=== PATIENT | female | born 1970 | race Two or more races ===

== ENCOUNTER 2017-12-08 17:33 | Emergency (ER) | payer OTHER | END 2017-12-08 20:29 | disposition home or self-care (01) | LOC: ER 20:29 | DX: M79.671 Pain in right foot (principal); E11.9 Type 2 diabetes mellitus without complications; K21.9 Gastro-esophageal reflux disease without esophagitis; Z98.51 Tubal ligation status; Z98.890 Other specified postprocedural states | CPT/HCPCS: 73630; 99284 ==

== ENCOUNTER 2018-02-16 17:30 | Emergency (ER) | payer OTHER ==
[2018-02-16 18:10] LABS: BILIRUBIN,URINE NEGATIVE (NEG); CLARITY,URINE CLEAR; COLOR,URINE YELLOW; GLUCOSE,URINE NEGATIVE (NEG); NITRITE,URINE NEGATIVE (NEG); PH,URINE 5.5; PROTEIN,URINE NEGATIVE (NEG-TRACE); UROBILINOGEN,URINE 0.2 mg/dL (0.2 mg/dL)
[2018-02-16 18:11] LABS: URINE HCG POC HCG NEGATIVE (Negative)
[2018-02-16] MEDS: IV NORMAL SALINE 1000ML BAG 1,000 ML IV (18:27)
[2018-02-16 18:33] LABS: BACTERIA,URINE 0 /HPF (0-FEW); RBC,URINE 0 /HPF (0-2); SQUAMOUS EPITHELIAL CELL,UR MANY /LPF; WBC,URINE 0 /HPF (0-4)
[2018-02-16 19:21] LABS: ADD MAN DIFF? NO
[2018-02-16 19:23] LABS: BASO % 0 % (0-3); EOS # 0.1 x10^3/uL (0.0-0.7); EOS % 1 % (0-3); HEMATOCRIT 30.7 % (36.0-47.0); HEMOGLOBIN 10.4 g/dL (12.0-15.5); LYMPH # 2.1 x10^3/uL (1.0-4.8); LYMPH % 24 % (24-48); MEAN CORPUSCULAR HEMOGLOBIN 29 pg (25-35); MEAN CORPUSCULAR HGB CONC 34 g/dL (31-37); MEAN CORPUSCULAR VOLUME 86 fL (79-100); MONO # 0.4 x10^3/uL (0.0-1.1); MONO % 5 % (0-9); NEUT # 6.3 x10^3uL (1.8-7.7); NEUT % 71 % (31-73); PLATELET COUNT 333 x10^3/uL (140-400); RED BLOOD COUNT 3.57 x10^6/uL (3.50-5.40); RED CELL DISTRIBUTION WIDTH 17.6 % (11.5-14.5); WHITE BLOOD COUNT 8.9 x10^3/uL (4.0-11.0)
[2018-02-16 19:38] LABS: ANION GAP 9 (6-14); BLOOD UREA NITROGEN 10 mg/dL (7-20); BUN/CREATININE RATIO 14 (6-20); CALCIUM 8.7 mg/dL (8.5-10.1); CARBON DIOXIDE 24 mmol/L (21-32); CHLORIDE 109 mmol/L (98-107); CREATININE 0.7 mg/dL (0.6-1.0); GFR 89.3; GLUCOSE 76 mg/dL (70-99); POTASSIUM 3.3 mmol/L (3.5-5.1); SODIUM 142 mmol/L (136-145)
[2018-02-16 19:45] LABS: ALBUMIN 3.8 g/dL (3.4-5.0); ALBUMIN/GLOBULIN RATIO 1.1 (1.0-1.7); ALK PHOS 47 U/L (46-116); ALT (SGPT) 35 U/L (14-59); AST (SGOT) 18 U/L (15-37); LIPASE 219 U/L (73-393); TOTAL BILIRUBIN 0.5 mg/dL (0.2-1.0); TOTAL PROTEIN 7.3 g/dL (6.4-8.2)
[2018-02-16] MEDS: IRON POLYSACCHARIDE COMPLEX 150 MG CAPSULE PO (22:10)
[2018-02-18 14:33] LABS: CHLAMYDIA PROBE Negative (Negative); GC PROBE Negative (Negative)
== END 2018-02-16 22:17 | disposition home or self-care (01) ==
LOC: ER 17:30
DX: N93.8 Other specified abnormal uterine and vaginal bleeding (principal); E11.9 Type 2 diabetes mellitus without complications; K21.9 Gastro-esophageal reflux disease without esophagitis; I10 Essential (primary) hypertension
CPT/HCPCS: 36415; 76856; 80053; 81001; 81025; 83690; 85025; 87491; 87591; 99285-25; J7030; Q0111

== ENCOUNTER 2018-07-24 18:04 | Inpatient (IN) | payer OTHER ==
[~2018-07-24] VITALS: Ht 170.2 cm; Wt 109.3 kg
[~2018-07-24 18:04] MED LIST: ASPI81TA50 PO; ATOR40TA59 PO; DICL50TA4 PO; FERR-36 PO; FLUC150T PO; INSU100I13 SQ; INSU100I17 SQ; LEVO750T31 PO; MEDR2.5T28 PO; METF10007 PO; METR500T PO; PANT40TA3 PO
[2018-07-24 19:18] LABS: BASO # 0.1 x10^3/uL (0.0-0.2); BASO % 1 % (0-3); EOS # 0.1 x10^3/uL (0.0-0.7); EOS % 1 % (0-3); HEMATOCRIT 27.5 % (36.0-47.0); HEMOGLOBIN 8.6 g/dL (12.0-15.5); LYMPH # 2.4 x10^3/uL (1.0-4.8); LYMPH % 26 % (24-48); MEAN CORPUSCULAR HEMOGLOBIN 23 pg (25-35); MEAN CORPUSCULAR HGB CONC 31 g/dL (31-37); MEAN CORPUSCULAR VOLUME 73 fL (79-100); MONO # 0.7 x10^3/uL (0.0-1.1); MONO % 7 % (0-9); NEUT # 6.2 x10^3uL (1.8-7.7); NEUT % 66 % (31-73); PLATELET COUNT 384 x10^3/uL (140-400); RED BLOOD COUNT 3.78 x10^6/uL (3.50-5.40); RED CELL DISTRIBUTION WIDTH 20.3 % (11.5-14.5); WHITE BLOOD COUNT 9.4 x10^3/uL (4.0-11.0)
[2018-07-24 19:28] LABS: PROTHROMBIN TIME PATIENT 13.1 SEC (11.7-14.0)
[2018-07-24] MEDS ORDERED: ASPIRIN CHEWABLE 81 MG TABLET. PO ONE (19:30)
--- NOTE | 2018-07-24 19:40 | PHYS DOC ---
Past Medical History Past Medical History: Diabetes-Type II, GERD, Hypertension Past Surgical History: Alcohol Use: None Drug Use: None Adult General Chief Complaint Chief Complaint: CHEST PAIN HPI HPI Patient is a 48 year old female presents with chest pain. She said she's had it now for about a month on and off but over the last 7 days it has been every single day it is worse when she tries to move around even just a little bit when she takes a shower and when she walks up the stairs she feels a pressure heaviness on the chest Center radiates both shoulders currently no pain while at rest in addition she has a headache of note she had a stress test in 2013 at this facility did show a possible mild defect but she was treated medically at that time with negative troponins. She says history obtained with the daughter who is interpreting for her at the patient's request she says that she did go to and talk to her doctor about this about a month ago but thought everything was okay. Review of Systems Review of Systems Constitutional: Denies fever or chills [] Eyes: Denies change in visual acuity, redness, or eye pain [] Musculoskeletal: Denies back pain or joint pain [] Integument: Denies rash or skin lesions [] Neurologic: Denies focal weakness or sensory changes [] Endocrine: Denies polyuria or polydipsia [] All other systems were reviewed and found to be within normal limits, except as documented in this note. Current Medications Current Medications Current Medications Medications (Trade) Dose Ordered Sig/Asha Start Time Stop Time Status Last Admin Dose Admin Aspirin (Children'S Aspirin) 324 mg 1X ONCE 07/24/18 19:30 07/24/18 19:31 DC 07/24/18 19:25 324 MG Nitroglycerin (Nitrostat) 0.4 mg PRN Q5MIN PRN 07/24/18 21:00 07/25/18 20:59 Allergies Allergies Allergies Coded Allergies Type Severity Reaction Last Updated Verified No Known Drug Allergies 03/02/14 No Physical Exam Physical Exam Constitutional: Well developed, well nourished, no acute distress, non-toxic appearance. [] HENT: Normocephalic, atraumatic, bilateral external ears normal, oropharynx moist, no oral exudates, nose normal. [] Eyes: PERRLA, EOMI, conjunctiva normal, no discharge. [] Neck: Normal range of motion, no tenderness, supple, no stridor. [] Cardiovascular:Heart rate regular rhythm, no murmur [] Lungs & Thorax: Bilateral breath sounds clear to auscultation [] Abdomen: Bowel sounds normal, soft, no tenderness, no masses, no pulsatile masses. [] Skin: Warm, dry, no erythema, no rash. [] Back: No tenderness, no CVA tenderness. [] Extremities: No tenderness, no cyanosis, no clubbing, ROM intact, no edema. [] Neurologic: Alert and oriented X 3, normal motor function, normal sensory function, no focal deficits noted. [] Psychologic: Affect normal, judgement normal, mood normal. [] Current Patient Data Vital Signs Vital Signs Date Time Temp Pulse Resp B/P (MAP) Pulse Ox O2 Delivery O2 Flow Rate FiO2 07/24/18 18:13 97.9 101 22 139/74 (95) 96 Room Air 97.9 Lab Values Laboratory Tests Test 07/24/18 19:00 07/24/18 20:10 White Blood Count 9.4 x10^3/uL (4.0-11.0) Red Blood Count 3.78 x10^6/uL (3.50-5.40) Hemoglobin 8.6 g/dL (12.0-15.5) L Hematocrit 27.5 % (36.0-47.0) L Mean Corpuscular Volume 73 fL (79-100) L Mean Corpuscular Hemoglobin 23 pg (25-35) L Mean Corpuscular Hemoglobin Concent 31 g/dL (31-37) Red Cell Distribution Width 20.3 % (11.5-14.5) H Platelet Count 384 x10^3/uL (140-400) Neutrophils (%) (Auto) 66 % (31-73) Lymphocytes (%) (Auto) 26 % (24-48) Monocytes (%) (Auto) 7 % (0-9) Eosinophils (%) (Auto) 1 % (0-3) Basophils (%) (Auto) 1 % (0-3) Neutrophils # (Auto) 6.2 x10^3uL (1.8-7.7) Lymphocytes # (Auto) 2.4 x10^3/uL (1.0-4.8) Monocytes # (Auto) 0.7 x10^3/uL (0.0-1.1) Eosinophils # (Auto) 0.1 x10^3/uL (0.0-0.7) Basophils # (Auto) 0.1 x10^3/uL (0.0-0.2) Platelet Estimate Adequate (ADEQUATE) Polychromasia Mod Hypochromasia Mod Anisocytosis Mod Microcytosis Slight Tear Drop Cells Few Ovalocytes Mod Prothrombin Time 13.1 SEC (11.7-14.0) Prothrombin Time INR 1.0 (0.8-1.1) D-Dimer (Deanne) < 0.27 ug/mlFEU Maternal Serum HCG Beta Subunit 1 mIU/mL (0-5) Sodium Level 142 mmol/L (136-145) Potassium Level 3.9 mmol/L (3.5-5.1) Chloride Level 105 mmol/L (98-107) Carbon Dioxide Level 25 mmol/L (21-32) Anion Gap 12 (6-14) Blood Urea Nitrogen 14 mg/dL (7-20) Creatinine 0.9 mg/dL (0.6-1.0) Estimated GFR (Cockcroft-Gault) 66.5 BUN/Creatinine Ratio 16 (6-20) Glucose Level 97 mg/dL (70-99) Calcium Level 9.1 mg/dL (8.5-10.1) Total Bilirubin 0.3 mg/dL (0.2-1.0) Aspartate Amino Transferase (AST) 13 U/L (15-37) L Alanine Aminotransferase (ALT) 29 U/L (14-59) Alkaline Phosphatase 59 U/L (46-116) Troponin I Quantitative < 0.017 ng/mL (0.000-0.055) RU-Oqu-I-Type Natriuretic Peptide 12 pg/mL (0-124) Total Protein 7.6 g/dL (6.4-8.2) Albumin 3.6 g/dL (3.4-5.0) Albumin/Globulin Ratio 0.9 (1.0-1.7) L Laboratory Tests 07/24/18 19:00 Laboratory Tests 07/24/18 20:10 EKG EKG []EKG shows a normal sinus tachycardia rate of 103 possible nonspecific changes in V3 and V5 but no acute STEMI was identified this is interpreted by me the time of encounter. Radiology/Procedures Radiology/Procedures [] Impressions: Chest x-ray interpreted by me showed normal lungs normal bones no pneumothorax no pneumonia seen. Course & Med Decision Making Course & Med Decision Making Pertinent Labs and Imaging studies reviewed. (See chart for details) []Heart score is a h 2 e 1 a 1 r 1 t 0 = 5 patient will be admitted overnight for observation and serial rule out. D-dimer was done to evaluate for pulmonary embolism given the mild tachycardia aspirin was given ADMIT TO [facility]. PT WELL APPEARING WHILE IN TH ER. Dragon Disclaimer Dragon Disclaimer This electronic medical record was generated, in whole or in part, using a voice recognition dictation system. Departure Departure Impression: Primary Impression: Chest pain Disposition: ADMITTED INPATIENT Admitting Physician: Other Condition: STABLE Referrals: UNKNOWN PCP NAME (PCP) BALJIT JACKSON MD Jul 24, 2018 19:40
[2018-07-24 19:52] LABS: PLT ESTIMATE ADEQUATE (ADEQUATE)
[2018-07-24 19:53] LABS: ANISOCYTOSIS MOD; HYPOCHROMIA MOD; MICROCYTOSIS SLIGHT; OVALOCYTES MOD; POLYCHROMASIA MOD; TEAR DROP CELLS FEW
[2018-07-24 20:27] LABS: CALCIUM 9.1 mg/dL (8.5-10.1); CREATININE 0.9 mg/dL (0.6-1.0); GFR 66.5; POTASSIUM 3.9 mmol/L (3.5-5.1)
[2018-07-24 20:34] LABS: ALBUMIN 3.6 g/dL (3.4-5.0); ALBUMIN/GLOBULIN RATIO 0.9 (1.0-1.7); TOTAL BILIRUBIN 0.3 mg/dL (0.2-1.0); TOTAL PROTEIN 7.6 g/dL (6.4-8.2)
[2018-07-24] MEDS ORDERED: NITROGLYCERIN SUBLINGUAL 0.4 MG BOTTLE OF 25. SL PRN (21:00)
[2018-07-24 22:45] VITALS: BP 125/90
[2018-07-24] MEDS: ATORVASTATIN CALCIUM 40 MG TABLET. PO SCH (23:00)
[2018-07-24] MEDS: INSULIN GLARGINE 300 UNITS/3 ML INSULN.PEN. SQ SCH (23:08)
[2018-07-25 03:16] VITALS: BP 141/73
[2018-07-25 06:16] LABS: CHOLESTEROL/HDL RATIO 4.3
[2018-07-25 07:00] VITALS: BP 136/87
[2018-07-25] MEDS: INSULIN LISPRO 300 UNITS/3 ML INSULN.PEN. SQ SCH ×3 (08:00→17:34)
--- NOTE | 2018-07-25 08:27 | RAD ---
Single view chest 07/24/2018 CLINICAL INDICATION: Chest pain. COMPARISON: Chest 01/03/2018 FINDINGS: Cardiac and mediastinal silhouettes are unremarkable. No pleural effusion, pneumothorax or focal consolidation. IMPRESSION: No acute cardiopulmonary abnormality. Electronically signed by: Tawanda Corbin MD (07/25/2018 8:24 AM) [facility]
--- NOTE | 2018-07-25 11:05 | PDOC2 ---
CARDIOLOGY CONSULT NOTE CHEIF COMPLAINT: Chest pain HPI: Patient is a pleasant 48 y/o female with PMHx T2DM, HLD, that presents with exertional chest pain for 7 days duration. She is seen at the bedside with daughter who is helping with translation as Nigerien is not the patients primary language. She reports that she has had chest pain with activity for about the last month. She states that over the last week the pain has become much worse leading her to come to the hospital. She describes the pain as stabbing in nature, she states that it starts substernally and radiates to her neck and shoulders. She reports that the pain is worse with activity and relieved with rest. She states that the pain is associated with SOB but no diaphoresis, nausea, or vomiting. Workup in the emergency department revealed negative troponins and nonspecific EKG changes however not concerning for STEMI. Currently she reports that she is feeling better and without chest pain. She denies any fever, chills, or recent sick contacts. She reports headache. She states she has had chest pain like this in 2013 with a negative stress and echo at that time. PMHX: T2DM, Dyslipidemia SOCHX: Tobacco: Denies, ETOH: Denies CURRENT MEDS: Current Medications Medications (Trade) Dose Ordered Sig/Asha Start Time Stop Time Status Last Admin Dose Admin Aspirin (Children'S Aspirin) 324 mg 1X ONCE 07/24/18 19:30 07/24/18 19:31 DC 07/24/18 19:25 324 MG Atorvastatin Calcium (Lipitor) 40 mg QHS 07/24/18 23:00 Insulin Glargine (Lantus) 20 units QHS 07/24/18 23:00 07/24/18 23:08 20 UNITS Insulin Human Lispro (HumaLOG) 8 units TIDWMEALS 07/25/18 08:00 Metformin HCl (Glucophage) 1,000 mg BIDWMEALS 07/25/18 08:00 Nitroglycerin (Nitrostat) 0.4 mg PRN Q5MIN PRN 07/24/18 21:00 07/25/18 20:59 ALLERGIES: Allergies Coded Allergies Type Severity Reaction Last Updated Verified No Known Drug Allergies 03/02/14 No ROS: 14 point system was reviewed and is negative other then described in HPI and past medical and surgical history. PHYSICAL EXAM: Vital Signs: Vital Signs Date Time Temp Pulse Resp B/P (MAP) Pulse Ox O2 Delivery O2 Flow Rate FiO2 07/25/18 08:10 Room Air 07/25/18 07:00 97.7 105 18 136/87 (103) 98 97.7 Physical Exam: GEN.: No apparent distress. Alert and oriented. HEENT: Head is normocephalic, atraumatic NECK: Supple. LUNGS: Clear to auscultation. HEART: RRR, S1, S2 present. Peripheral pulses intact ABDOMEN: Soft, nontender. Positive bowel sounds. EXTREMITIES: Without any cyanosis or edema NEUROLOGIC: Normal speech, normal tone PSYCHIATRIC: Normal affect, normal mood. SKIN: No ulcerations DIAGNOSTIC TESTING: Lab Laboratory Tests Test 07/24/18 19:00 07/24/18 20:10 07/25/18 04:45 07/25/18 08:09 White Blood Count 9.4 x10^3/uL (4.0-11.0) Red Blood Count 3.78 x10^6/uL (3.50-5.40) Hemoglobin 8.6 g/dL (12.0-15.5) L Hematocrit 27.5 % (36.0-47.0) L Mean Corpuscular Volume 73 fL (79-100) L Mean Corpuscular Hemoglobin 23 pg (25-35) L Mean Corpuscular Hemoglobin Concent 31 g/dL (31-37) Red Cell Distribution Width 20.3 % (11.5-14.5) H Platelet Count 384 x10^3/uL (140-400) Neutrophils (%) (Auto) 66 % (31-73) Lymphocytes (%) (Auto) 26 % (24-48) Monocytes (%) (Auto) 7 % (0-9) Eosinophils (%) (Auto) 1 % (0-3) Basophils (%) (Auto) 1 % (0-3) Neutrophils # (Auto) 6.2 x10^3uL (1.8-7.7) Lymphocytes # (Auto) 2.4 x10^3/uL (1.0-4.8) Monocytes # (Auto) 0.7 x10^3/uL (0.0-1.1) Eosinophils # (Auto) 0.1 x10^3/uL (0.0-0.7) Basophils # (Auto) 0.1 x10^3/uL (0.0-0.2) Platelet Estimate Adequate (ADEQUATE) Polychromasia Mod Hypochromasia Mod Anisocytosis Mod Microcytosis Slight Tear Drop Cells Few Ovalocytes Mod Prothrombin Time 13.1 SEC (11.7-14.0) Prothromb Time International Ratio 1.0 (0.8-1.1) D-Dimer (Deanne) < 0.27 ug/mlFEU Maternal Serum HCG Beta Subunit 1 mIU/mL (0-5) Sodium Level 142 mmol/L (136-145) Potassium Level 3.9 mmol/L (3.5-5.1) Chloride Level 105 mmol/L (98-107) Carbon Dioxide Level 25 mmol/L (21-32) Anion Gap 12 (6-14) Blood Urea Nitrogen 14 mg/dL (7-20) Creatinine 0.9 mg/dL (0.6-1.0) Estimated GFR (Cockcroft-Gault) 66.5 BUN/Creatinine Ratio 16 (6-20) Glucose Level 97 mg/dL (70-99) Calcium Level 9.1 mg/dL (8.5-10.1) Total Bilirubin 0.3 mg/dL (0.2-1.0) Aspartate Amino Transf (AST/SGOT) 13 U/L (15-37) L Alkaline Phosphatase 59 U/L (46-116) Total Protein 7.6 g/dL (6.4-8.2) Albumin 3.6 g/dL (3.4-5.0) Albumin/Globulin Ratio 0.9 (1.0-1.7) L Cholesterol Level 130 mg/dL (0-200) LDL Cholesterol, Calculated 73 mg/dL (0-100) VLDL Cholesterol, Calculated 27 mg/dL (0-40) Non-HDL Cholesterol Calculated 100 mg/dL (0-129) Cholesterol/HDL Ratio 4.3 Glucose (Fingerstick) 184 mg/dL (70-99) H ASSESSMENT: #1. Typical Anginal Chest Pain #2. Microcytic Anemia - Hgb down to 8.6 from > 11 several months ago. #3. Type 2 Diabetes Mellitus PLAN: #1. Given typical anginal chest pain will discuss cardiac catheterization with patient #2. Echo #3. Start Metoprolol 25mg bid. Start ASA 81mg daily She has significant anemia - will ensure that has no obvious bleeding issues prior to plans for cath. RAMAN MOMIN MD Jul 25, 2018 11:05
[2018-07-25 11:07] VITALS: BP 138/82
[2018-07-25] MEDS ORDERED: ASPIRIN CHEWABLE 81 MG TABLET. PO ONE (11:45)
[2018-07-25] MEDS: metFORMIN 500 MG TABLET PO SCH ×2 (12:24→17:31)
[2018-07-25 14:49] VITALS: BP 125/70
[2018-07-25] MEDS ORDERED: DEXTROSE 50% 25 GM / 50ML DISP.SYRIN. IV PRN (16:30)
--- NOTE | 2018-07-25 17:52 | EKG ---
[facility] [address] [place] [address] Test Date: 2018-07-24 Test Time: 18:16:24 Pat Name: DIANE LEWIS Department: Room: 208 1 Gender: Female Hospital Medical Biller: : [id number] Requested By: BALJIT JACKSON Order Number: [id number] Reading MD: Terrance Diaz MD Measurements Intervals [place] Rate: 103 P: 34 CT: 132 QRS: 9 QRSD: 76 T: -4 QT: 334 QTc: 439 Interpretive Statements SINUS TACHYCARDIA Electronically Signed On 07-26-2018 8:39:00 PHYSICAL THERAPIST ASSISTANT by Terrance Diaz MD
[2018-07-25 18:47] VITALS: BP 138/82
--- NOTE | 2018-07-25 19:25 | PDOC1 ---
History and Physical History of Present Illness History of Present Illness HPI from ED Patient is a 48 year old female presents with chest pain. She said she's had it now for about a month on and off but over the last 7 days it has been every single day it is worse when she tries to move around even just a little bit when she takes a shower and when she walks up the stairs she feels a pressure heaviness on the chest Center radiates both shoulders currently no pain while at rest in addition she has a headache of note she had a stress test in 2013 at this facility did show a possible mild defect but she was treated medically at that time with negative troponins. She says history obtained with the daughter who is interpreting for her at the patient's request she says that she did go to and talk to her doctor about this about a month ago but thought everything was okay. On my exam AAO x3 NAD pheasant No c/o CP at thi time Daughter is at bedside interpreting in [place]ib[place] No c/o sob at present Past Medical History Cardiovascular: HTN Endocrine: Diabetes Past Surgical History Past Surgical History: Family History Family History: Hypertension Social History ALCOHOL: none Drugs: None Current Problem List Problem List Problems Medical Problems: (1) Chest pain Status: Acute Current Medications Current Medications Current Medications Medications (Trade) Dose Ordered Sig/Asha Start Time Stop Time Status Last Admin Dose Admin Aspirin (Children'S Aspirin) 81 mg [id number] 07/26/18 08:00 Atorvastatin Calcium (Lipitor) 40 mg QHS 07/24/18 23:00 Dextrose (Dextrose 50%-Water Syringe) 12.5 gm PRN Q15MIN PRN 07/25/18 16:30 Insulin Glargine (Lantus) 20 units QHS 07/24/18 23:00 07/24/18 23:08 20 UNITS Insulin Human Lispro (HumaLOG) 8 units TIDWMEALS 07/25/18 08:00 07/25/18 17:34 8 UNITS Metformin HCl (Glucophage) 1,000 mg BIDWMEALS 07/25/18 08:00 07/25/18 17:31 1,000 MG Metoprolol Tartrate (Lopressor) 25 mg BID 07/25/18 21:00 Nitroglycerin (Nitrostat) 0.4 mg PRN Q5MIN PRN 07/24/18 21:00 07/25/18 20:59 Allergies Allergies Allergies Coded Allergies Type Severity Reaction Last Updated Verified No Known Drug Allergies 03/02/14 No ROS Review of System CONSTITUTIONAL: No fever or chills EYES: No recent changes SKIN: No rash or itching CARDIOVASCULAR: No chest pain, syncope, palpitations, or edema RESPIRATORY: No SOB or cough GASTROINTESTINAL: No nausea, vomiting or abdominal pain NEUROLOGICAL: No headaches or weakness ENDOCRINE: No cold or heat intolerance GENITOURINARY: No urgency or frequency of urination MUSCULOSKELETAL: No back pain or joint pain LYMPHATICS: No enlarged lymph nodes PSYCHIATRIC: No anxiety or depression Physical Exam Physical Exam GEN.: No apparent distress. Alert and oriented. HEENT: Head is normocephalic, atraumatic NECK: Supple. LUNGS: Clear to auscultation. HEART: RRR, S1, S2 present. Peripheral pulses intact ABDOMEN: Soft, nontender. Positive bowel sounds. EXTREMITIES: Without any cyanosis. NEUROLOGIC: Normal speech, normal tone PSYCHIATRIC: Normal affect, normal mood. SKIN: No ulcerations Vitals Vitals Vital Signs Date Time Temp Pulse Resp B/P (MAP) Pulse Ox O2 Delivery O2 Flow Rate FiO2 07/25/18 18:47 98.6 98 18 138/82 (100) 96 Room Air 98.6 Labs Labs Laboratory Tests Test 07/24/18 19:00 07/24/18 20:10 07/25/18 01:30 07/25/18 04:45 White Blood Count 9.4 x10^3/uL (4.0-11.0) Red Blood Count 3.78 x10^6/uL (3.50-5.40) Hemoglobin 8.6 g/dL (12.0-15.5) Hematocrit 27.5 % (36.0-47.0) Mean Corpuscular Volume 73 fL (79-100) Mean Corpuscular Hemoglobin 23 pg (25-35) Mean Corpuscular Hemoglobin Concent 31 g/dL (31-37) Red Cell Distribution Width 20.3 % (11.5-14.5) Platelet Count 384 x10^3/uL (140-400) Neutrophils (%) (Auto) 66 % (31-73) Lymphocytes (%) (Auto) 26 % (24-48) Monocytes (%) (Auto) 7 % (0-9) Eosinophils (%) (Auto) 1 % (0-3) Basophils (%) (Auto) 1 % (0-3) Neutrophils # (Auto) 6.2 x10^3uL (1.8-7.7) Lymphocytes # (Auto) 2.4 x10^3/uL (1.0-4.8) Monocytes # (Auto) 0.7 x10^3/uL (0.0-1.1) Eosinophils # (Auto) 0.1 x10^3/uL (0.0-0.7) Basophils # (Auto) 0.1 x10^3/uL (0.0-0.2) Platelet Estimate Adequate (ADEQUATE) Polychromasia Mod Hypochromasia Mod Anisocytosis Mod Microcytosis Slight Tear Drop Cells Few Ovalocytes Mod Prothrombin Time 13.1 SEC (11.7-14.0) Prothromb Time International Ratio 1.0 (0.8-1.1) D-Dimer (Deanne) < 0.27 ug/mlFEU Maternal Serum HCG Beta Subunit 1 mIU/mL (0-5) Sodium Level 142 mmol/L (136-145) Potassium Level 3.9 mmol/L (3.5-5.1) Chloride Level 105 mmol/L (98-107) Carbon Dioxide Level 25 mmol/L (21-32) Anion Gap 12 (6-14) Blood Urea Nitrogen 14 mg/dL (7-20) Creatinine 0.9 mg/dL (0.6-1.0) Estimated GFR (Cockcroft-Gault) 66.5 BUN/Creatinine Ratio 16 (6-20) Glucose Level 97 mg/dL (70-99) Calcium Level 9.1 mg/dL (8.5-10.1) Total Bilirubin 0.3 mg/dL (0.2-1.0) Aspartate Amino Transf (AST/SGOT) 13 U/L (15-37) Alanine Aminotransferase (ALT/SGPT) 29 U/L (14-59) Alkaline Phosphatase 59 U/L (46-116) Troponin I Quantitative < 0.017 ng/mL (0.000-0.055) < 0.017 ng/mL (0.000-0.055) KU-Zuy-B-Type Natriuretic Peptide 12 pg/mL (0-124) Total Protein 7.6 g/dL (6.4-8.2) Albumin 3.6 g/dL (3.4-5.0) Albumin/Globulin Ratio 0.9 (1.0-1.7) Triglycerides Level 136 mg/dL (0-150) Cholesterol Level 130 mg/dL (0-200) LDL Cholesterol, Calculated 73 mg/dL (0-100) VLDL Cholesterol, Calculated 27 mg/dL (0-40) Non-HDL Cholesterol Calculated 100 mg/dL (0-129) HDL Cholesterol 30 mg/dL (40-60) Cholesterol/HDL Ratio 4.3 Test 07/25/18 05:00 07/25/18 08:09 07/25/18 11:57 07/25/18 12:10 Troponin I Quantitative < 0.017 ng/mL (0.000-0.055) < 0.017 ng/mL (0.000-0.055) Glucose (Fingerstick) 184 mg/dL (70-99) 135 mg/dL (70-99) Test 07/25/18 17:21 Glucose (Fingerstick) 123 mg/dL (70-99) Laboratory Tests Test 07/24/18 20:10 07/25/18 01:30 07/25/18 04:45 07/25/18 05:00 Maternal Serum HCG Beta Subunit 1 mIU/mL (0-5) Sodium Level 142 mmol/L (136-145) Potassium Level 3.9 mmol/L (3.5-5.1) Chloride Level 105 mmol/L (98-107) Carbon Dioxide Level 25 mmol/L (21-32) Anion Gap 12 (6-14) Blood Urea Nitrogen 14 mg/dL (7-20) Creatinine 0.9 mg/dL (0.6-1.0) Estimated GFR (Cockcroft-Gault) 66.5 BUN/Creatinine Ratio 16 (6-20) Glucose Level 97 mg/dL (70-99) Calcium Level 9.1 mg/dL (8.5-10.1) Total Bilirubin 0.3 mg/dL (0.2-1.0) Aspartate Amino Transf (AST/SGOT) 13 U/L (15-37) Alanine Aminotransferase (ALT/SGPT) 29 U/L (14-59) Alkaline Phosphatase 59 U/L (46-116) Troponin I Quantitative < 0.017 ng/mL (0.000-0.055) < 0.017 ng/mL (0.000-0.055) < 0.017 ng/mL (0.000-0.055) ZZ-Eyk-Y-Type Natriuretic Peptide 12 pg/mL (0-124) Total Protein 7.6 g/dL (6.4-8.2) Albumin 3.6 g/dL (3.4-5.0) Albumin/Globulin Ratio 0.9 (1.0-1.7) Triglycerides Level 136 mg/dL (0-150) Cholesterol Level 130 mg/dL (0-200) LDL Cholesterol, Calculated 73 mg/dL (0-100) VLDL Cholesterol, Calculated 27 mg/dL (0-40) Non-HDL Cholesterol Calculated 100 mg/dL (0-129) HDL Cholesterol 30 mg/dL (40-60) Cholesterol/HDL Ratio 4.3 Test 07/25/18 08:09 07/25/18 11:57 07/25/18 12:10 07/25/18 17:21 Glucose (Fingerstick) 184 mg/dL (70-99) 135 mg/dL (70-99) 123 mg/dL (70-99) Troponin I Quantitative < 0.017 ng/mL (0.000-0.055) VTE Prophylaxis Ordered VTE Prophylaxis Devices: No VTE Pharmacological Prophylaxi: Contraindicated Assessment/Plan Assessment/Plan Cards c/s Lopressor statin cath in am MAURICE León MD Jul 25, 2018 19:25
[2018-07-25] MEDS: ATORVASTATIN CALCIUM 40 MG TABLET. PO SCH (20:41)
[2018-07-25] MEDS: INSULIN GLARGINE 300 UNITS/3 ML INSULN.PEN. SQ SCH (20:45)
[2018-07-25] MEDS ORDERED: METOPROLOL TART IMMED RELEASE 25 MG TABLET. PO SCH (21:00)
[2018-07-25 22:38] VITALS: BP 130/70
[2018-07-26] VITALS (8 sets, daily range): BP systolic 125–147; BP diastolic 62–80
[2018-07-26] MEDS: metFORMIN 500 MG TABLET PO SCH (08:00)
[2018-07-26] MEDS: INSULIN LISPRO 300 UNITS/3 ML INSULN.PEN. SQ SCH (08:00)
[2018-07-26] MEDS ORDERED: ASPIRIN CHEWABLE 81 MG TABLET. PO SCH (08:00)
--- NOTE | 2018-07-26 08:37 | RAD ---
EXAM: Pelvic sonogram. HISTORY: Uterine bleeding. TECHNIQUE: Transabdominal and transvaginal sonographic imaging of the pelvis performed. COMPARISON: 12/24/2015, 01/03/2018 and 02/16/2018. FINDINGS: The uterus is enlarged and diffusely heterogeneous, measuring 15.6 x 8.1 x 6.9 cm. The endometrial stripe measures 9.6 mm in thickness. The ovaries are not visualized due to body habitus and bowel gas. There is no pelvic free fluid. IMPRESSION: 1. Heterogeneously enlarged uterus without a discrete mass such as a fibroid. This is slightly decreased compared to the most recent comparison study, likely due to differences in measurement technique. 2. Endometrial stripe within normal thickness for a premenopausal female. 3. Obscured ovaries. Electronically signed by: Arlette Genao MD (07/26/2018 8:33 AM) [id number]
[2018-07-26] MEDS ORDERED: IOHEXOL 300 MG/ML 100ML VIAL. ONE (09:33)
[2018-07-26] MEDS ORDERED: LIDOCAINE 1% PF 2 ML VIAL. ONE (09:33)
[2018-07-26] MEDS ORDERED: HEPARIN for IV BOLUS 10,000 UNIT/10 ML VIAL. ONE (09:43)
[2018-07-26] MEDS ORDERED: NITROGLYCERIN 200 MCG/2 ML SYRINGE FOR CATH/VASC LAB. ONE (09:43)
[2018-07-26] MEDS ORDERED: fentaNYL PF VIAL 100 MCG/2 ML VIAL ONE (09:43)
[2018-07-26] MEDS ORDERED: MIDAZOLAM HCL/PF 2 MG/2 ML VIAL. ONE (09:43)
[2018-07-26] MEDS ORDERED: VERAPAMIL 5 MG/2 ML VIAL. ONE (09:43)
[2018-07-26] MEDS ORDERED: LIDOCAINE 1% PF 2 ML VIAL. INJ ONE (10:15)
[2018-07-26] MEDS ORDERED: IV NORMAL SALINE 500ML BAG 500 ML IV ONE (10:15)
[2018-07-26] MEDS ORDERED: fentaNYL PF VIAL 100 MCG/2 ML VIAL IV ONE (10:15)
[2018-07-26] MEDS ORDERED: IOHEXOL 300 MG/ML 100ML VIAL. IART ONE (10:15)
[2018-07-26] MEDS ORDERED: MIDAZOLAM HCL/PF 2 MG/2 ML VIAL. IV ONE (10:15)
[2018-07-26] MEDS ORDERED: NITROGLYCERIN 200 MCG/2 ML SYRINGE FOR CATH/VASC LAB. IART ONE (10:15)
[2018-07-26] MEDS ORDERED: CONTRAST GIVEN. MC PRN (10:15)
[2018-07-26] MEDS ORDERED: VERAPAMIL 5 MG/2 ML VIAL. IART ONE (10:15)
[2018-07-26] MEDS ORDERED: HEPARIN for IV BOLUS 10,000 UNIT/10 ML VIAL. IART ONE (10:15)
--- NOTE | 2018-07-26 10:35 | CARD ---
MR#: [id number] Date of Study: 07/26/2018 Ordering Physician: RAMAN DIAZ, Referring Physician: MAURICE CLEMENTS Tech: Myrtle Darling RTR APPROVED REPORT Technologist: Myrtle Darling RTR Nurse: Abigail Hester RN Procedure(s) performed: Moderate Sedation time: 20 MINUTES LHC, Coronary angiography, Left ventriculography HISTORY The patient is a 48 year-old female with a history of : hypertension, dyslipidemia. INDICATION The indication(s) include : positive stress test, unstable angina . PROCEDURE NARRATIVE INFORMED CONSENT: After explaining the risks and benefits of the procedure and alternatives, informed consent was obtained. The patient was brought electively to the cardiac catheterization lab. A timeout was performed confi rming the patient's name, date of , procedure, and site of procedure. All necessary personnel w ere wearing the appropriate protective equipment and radiation monitor devices. (See nursing notes for medications administered). ACCESS: The right wrist was sterilely prepped and draped in the usual fashion. The right wrist was infiltrat ed with 1 mL of 2% lidocaine for subcutaneous anesthesia. A 6 Cambodian Terumo glide sheath was inserte d into the right radial artery without difficulty. CORONARY ANGIOGRAPHY: Right and left coronary angiography was performed using a 6Fr TIG 4.0 catheter. Left ventricular en d diastolic pressure was obtained with a pigtail catheter and pullback was performed after left ventr iculography. All catheter exchanges and advancements were performed over a guidewire. CLOSURE: At case completion the right radial sheath was removed and a Terumo radial band was applied with 13 m l of air. COMPLICATIONS: The patient tolerated the procedure well and there were no immediate complications. FINDINGS: HEMODYNAMICS: LVEDP 10 mm Hg No gradient on LV to aortic pullback. AO: 140/80 LEFT VENTRICULOGRAM: EF >70% Anterobasal: Normal. Anterolateral: Normal Apical: Normal Diaphragmatic: Normal Posterobasal: Normal CORONARY ANGIOGRAPHY: LM is a large caliber vessel with normal angiographic appearance. LAD is a large caliber vessel with normal angiographic appearance. Ramus is a moderate caliber vessel with normal angiographic apeparance. LCx is a moderate caliber non-dominant vessel with normal angiographic appearance. OM1 is a moderate caliber vessel with normal angiographic appearance. RCA is a large caliber dominant vessel with normal angiographic appearance. RPDA is a small caliber vessel with normal angiographic appearance. Conclusion 1. Normal left sided filling pressures. 2. Hyperdynamic LV function. EF > 70% 3. Normal angiographic appearance of the coronary arteries. Recommendations Aggressive Medical Therapy Signed by : Raman Diaz, Electronically Approved : 07/26/2018 10:33:47
--- NOTE | 2018-07-26 13:39 | PDOC ---
PROGRESS NOTES Chief Complaint Chief Complaint Chest Pain Uterine Bleeding History of Present Illness History of Present Illness Pt was seen before undergoing cardiac catherization (which was negative and no stent needed) and she had now new complaints. A pelvic US performed showed symmetrical enlargement and an endometrial stripe of 9 mm. CXR showed no cardiopulmonary abnormalities. She will be getting a echo done today. Vitals Vitals Vital Signs Date Time Temp Pulse Resp B/P (MAP) Pulse Ox O2 Delivery O2 Flow Rate FiO2 07/26/18 11:10 98.3 91 16 142/76 (98) 97 Room Air 98.3 07/26/18 10:16 2.0 Physical Exam Physical Exam Neurologically Sedated General: Other (Pt was neurologically sedated) Heart: Regular rate Lungs: Clear, Other (no crackles or wheezes) Abdomen: Normal bowel sounds, Other (tenderness) Extremities: No clubbing, No cyanosis Skin: No rashes, No significant lesion Labs LABS Laboratory Tests Test 07/25/18 17:21 07/25/18 20:42 07/26/18 07:30 07/26/18 11:33 Glucose (Fingerstick) 123 mg/dL (70-99) 122 mg/dL (70-99) 142 mg/dL (70-99) 119 mg/dL (70-99) Review of Systems Review of Systems GENERAL: No unexpected wt loss, fever/chills HEENT: No visual changes, no hearing changes PULM: No sob, cough Assessment and Plan Assessmemt and Plan ASSESSMENT: Chest Pain Uterine Bleeding PLAN: Awaiting subspecialty input Await results from echocardiogram Home meds Consult PT/OT Recheck labs in am if not DC today VTE Prophylaxis Possible discharge today Comment Review of Relevant I have reviewed the following items marta (where applicable) has been applied. Labs Laboratory Tests Test 07/24/18 19:00 07/24/18 20:10 07/25/18 01:30 07/25/18 04:45 White Blood Count 9.4 x10^3/uL (4.0-11.0) Red Blood Count 3.78 x10^6/uL (3.50-5.40) Hemoglobin 8.6 g/dL (12.0-15.5) Hematocrit 27.5 % (36.0-47.0) Mean Corpuscular Volume 73 fL (79-100) Mean Corpuscular Hemoglobin 23 pg (25-35) Mean Corpuscular Hemoglobin Concent 31 g/dL (31-37) Red Cell Distribution Width 20.3 % (11.5-14.5) Platelet Count 384 x10^3/uL (140-400) Neutrophils (%) (Auto) 66 % (31-73) Lymphocytes (%) (Auto) 26 % (24-48) Monocytes (%) (Auto) 7 % (0-9) Eosinophils (%) (Auto) 1 % (0-3) Basophils (%) (Auto) 1 % (0-3) Neutrophils # (Auto) 6.2 x10^3uL (1.8-7.7) Lymphocytes # (Auto) 2.4 x10^3/uL (1.0-4.8) Monocytes # (Auto) 0.7 x10^3/uL (0.0-1.1) Eosinophils # (Auto) 0.1 x10^3/uL (0.0-0.7) Basophils # (Auto) 0.1 x10^3/uL (0.0-0.2) Platelet Estimate Adequate (ADEQUATE) Polychromasia Mod Hypochromasia Mod Anisocytosis Mod Microcytosis Slight Tear Drop Cells Few Ovalocytes Mod Prothrombin Time 13.1 SEC (11.7-14.0) Prothromb Time International Ratio 1.0 (0.8-1.1) D-Dimer (Deanne) < 0.27 ug/mlFEU Maternal Serum HCG Beta Subunit 1 mIU/mL (0-5) Sodium Level 142 mmol/L (136-145) Potassium Level 3.9 mmol/L (3.5-5.1) Chloride Level 105 mmol/L (98-107) Carbon Dioxide Level 25 mmol/L (21-32) Anion Gap 12 (6-14) Blood Urea Nitrogen 14 mg/dL (7-20) Creatinine 0.9 mg/dL (0.6-1.0) Estimated GFR (Cockcroft-Gault) 66.5 BUN/Creatinine Ratio 16 (6-20) Glucose Level 97 mg/dL (70-99) Calcium Level 9.1 mg/dL (8.5-10.1) Total Bilirubin 0.3 mg/dL (0.2-1.0) Aspartate Amino Transf (AST/SGOT) 13 U/L (15-37) Alanine Aminotransferase (ALT/SGPT) 29 U/L (14-59) Alkaline Phosphatase 59 U/L (46-116) Troponin I Quantitative < 0.017 ng/mL (0.000-0.055) < 0.017 ng/mL (0.000-0.055) MZ-Fed-M-Type Natriuretic Peptide 12 pg/mL (0-124) Total Protein 7.6 g/dL (6.4-8.2) Albumin 3.6 g/dL (3.4-5.0) Albumin/Globulin Ratio 0.9 (1.0-1.7) Triglycerides Level 136 mg/dL (0-150) Cholesterol Level 130 mg/dL (0-200) LDL Cholesterol, Calculated 73 mg/dL (0-100) VLDL Cholesterol, Calculated 27 mg/dL (0-40) Non-HDL Cholesterol Calculated 100 mg/dL (0-129) HDL Cholesterol 30 mg/dL (40-60) Cholesterol/HDL Ratio 4.3 Test 07/25/18 05:00 07/25/18 08:09 07/25/18 11:57 07/25/18 12:10 Troponin I Quantitative < 0.017 ng/mL (0.000-0.055) < 0.017 ng/mL (0.000-0.055) Glucose (Fingerstick) 184 mg/dL (70-99) 135 mg/dL (70-99) Test 07/25/18 17:21 07/25/18 20:42 07/26/18 07:30 07/26/18 11:33 Glucose (Fingerstick) 123 mg/dL (70-99) 122 mg/dL (70-99) 142 mg/dL (70-99) 119 mg/dL (70-99) Laboratory Tests Test 07/25/18 17:21 07/25/18 20:42 07/26/18 07:30 07/26/18 11:33 Glucose (Fingerstick) 123 mg/dL (70-99) 122 mg/dL (70-99) 142 mg/dL (70-99) 119 mg/dL (70-99) Medications Current Medications Aspirin (Children'S Aspirin) 324 mg 1X ONCE PO Last administered on at 19:25; Start 07/24/18 at 19:30; Stop 07/24/18 at 19:31; Status DC Nitroglycerin (Nitrostat) 0.4 mg PRN Q5MIN PRN SL CHEST PAIN; Start 07/24/18 at 21:00; Stop 07/25/18 at 20:59; Status DC Atorvastatin Calcium (Lipitor) 40 mg QHS PO Last administered on 07/25/18at 20: 41; Start 07/24/18 at 23:00 Insulin Glargine (Lantus) 20 units QHS SQ Last administered on 07/25/18at 20:45 ; Start 07/24/18 at 23:00 Insulin Human Lispro (HumaLOG) 8 units TIDWMEALS SQ Last administered on at 17:34; Start 07/25/18 at 08:00 Metformin HCl (Glucophage) 1,000 mg BIDWMEALS PO Last administered on at 17:31; Start 07/25/18 at 08:00; Stop 07/26/18 at 10:06; Status DC Aspirin (Children'S Aspirin) 81 mg 1X ONCE PO Last administered on 07/25/18at 12:25; Start 07/25/18 at 11:45; Stop 07/25/18 at 11:46; Status DC Aspirin (Children'S Aspirin) 81 mg DAILYWBKFT PO ; Start 07/26/18 at 08:00 Metoprolol Tartrate (Lopressor) 25 mg BID PO Last administered on 07/25/18at 20 :42; Start 07/25/18 at 21:00 Dextrose (Dextrose 50%-Water Syringe) 12.5 gm PRN Q15MIN PRN IV SEE COMMENTS; Start 07/25/18 at 16:30 Lidocaine HCl (Xylocaine-Mpf 1% 2ml Vial) 2 ml STK-MED ONCE .ROUTE ; Start at 09:33; Stop 07/26/18 at 09:34; Status DC Iohexol (Omnipaque 300 Mg/ml) 100 ml STK-MED ONCE .ROUTE ; Start 07/26/18 at 09 :33; Stop 07/26/18 at 09:34; Status DC Heparin Sodium/ Sodium Chloride 500 ml @ As Directed STK-MED ONCE .ROUTE ; Start 07/26/18 at 09:33; Stop 07/26/18 at 09:34; Status DC Fentanyl Citrate (Fentanyl 2ml Vial) 100 mcg STK-MED ONCE .ROUTE ; Start at 09:43; Stop 07/26/18 at 09:44; Status DC Midazolam HCl (Versed) 2 mg STK-MED ONCE .ROUTE ; Start 07/26/18 at 09:43; Stop 07/26/18 at 09:44; Status DC Heparin Sodium (Porcine) (Heparin Sodium) 10,000 unit STK-MED ONCE .ROUTE ; Start 07/26/18 at 09:43; Stop 07/26/18 at 09:44; Status DC Verapamil HCl (Verapamil) 5 mg STK-MED ONCE .ROUTE ; Start 07/26/18 at 09:43; Stop 07/26/18 at 09:44; Status DC Nitroglycerin (Nitroglycerin) 200 mcg STK-MED ONCE .ROUTE ; Start 07/26/18 at 09:43; Stop 07/26/18 at 09:44; Status DC Nitroglycerin (Nitroglycerin) 200 mcg 1X ONCE IART Last administered on at 10:14; Start 07/26/18 at 10:15; Stop 07/26/18 at 10:16; Status DC Verapamil HCl (Verapamil) 2.5 mg 1X ONCE IART Last administered on 07/26/18at 10:14; Start 07/26/18 at 10:15; Stop 07/26/18 at 10:16; Status DC Heparin Sodium (Porcine) (Heparin Sodium) 2,500 unit 1X ONCE IART Last administered on 07/26/18at 10:15; Start 07/26/18 at 10:15; Stop 07/26/18 at 10 :16; Status DC Heparin Sodium/ Sodium Chloride (HEPARIN for ARTERIAL LINE FLUSH) 1,000 unit 1X ONCE IART Last administered on 07/26/18at 10:14; Start 07/26/18 at 10:15; Stop 07/26/18 at 10:16; Status DC Midazolam HCl (Versed) 2 mg 1X ONCE IV Last administered on 07/26/18at 10:14; Start 07/26/18 at 10:15; Stop 07/26/18 at 10:16; Status DC Fentanyl Citrate (Fentanyl 2ml Vial) 100 mcg 1X ONCE IV Last administered on 07/26/18at 10:13; Start 07/26/18 at 10:15; Stop 07/26/18 at 10:16; Status DC Iohexol (Omnipaque 300 Mg/ml) 100 ml 1X ONCE IART Last administered on at 10:12; Start 07/26/18 at 10:15; Stop 07/26/18 at 10:16; Status DC Lidocaine HCl (Xylocaine-Mpf 1% 2ml Vial) 2 ml 1X ONCE INJ Last administered on 07/26/18at 10:14; Start 07/26/18 at 10:15; Stop 07/26/18 at 10:16; Status DC Info (CONTRAST GIVEN -- Rx MONITORING) 1 each PRN DAILY PRN MC SEE COMMENTS; Start 07/26/18 at 10:15; Stop 07/28/18 at 10:14 Metformin HCl (Glucophage) 1,000 mg BIDWMEALS PO ; Start 07/28/18 at 08:00 Sodium Chloride 500 ml @ 500 mls/hr 1X ONCE IV Last administered on at 10:08; Start 07/26/18 at 10:15; Stop 07/26/18 at 11:14; Status DC Active Scripts Active Reported Atorvastatin Calcium 40 Mg Tablet 40 Mg PO DAILY Lantus Solostar (Insulin Glargine,Hum.rec.anlog) 100 Unit/1 Ml Insuln.pen 20 Units SQ HS Novolog Flexpen (Insulin Aspart) 100 Unit/1 Ml Insuln.pen 8 Units SQ TIDWMEALS Metformin Hcl 1,000 Mg Tablet 1,000 Mg PO BID Vitals/I & O Vital Sign - Last 24 Hours 07/25/18 07/25/18 07/25/18 07/25/18 14:49 18:47 20:00 20:42 Temp 98.0 98.6 98.0 98.6 Pulse 98 98 98 Resp 18 18 B/P (MAP) 125/70 (88) 138/82 (100) 138/82 Pulse Ox 99 96 O2 Delivery Room Air Room Air Room Air 07/25/18 07/26/18 07/26/18 07/26/18 22:38 03:00 07:25 08:00 Temp 98.0 98.3 98.1 98.0 98.3 98.1 Pulse 99 102 86 Resp 20 16 16 B/P (MAP) 130/70 (90) 125/75 (92) 147/71 (96) Pulse Ox 96 97 95 O2 Delivery Room Air Room Air Room Air Room Air 07/26/18 07/26/18 07/26/18 07/26/18 10:13 10:14 10:16 11:10 Temp 98.3 98.3 Pulse 85 85 91 Resp 22 22 16 B/P (MAP) 142/76 (98) Pulse Ox 100 100 97 O2 Delivery Nasal Cannula Room Air O2 Flow Rate 2.0 2.0 Intake and Output 07/25/18 07/25/18 07/26/18 15:00 23:00 07:00 Intake Total 100 ml 500 ml 600 ml Output Total 250 ml Balance 100 ml 250 ml 600 ml TAMIKA ARCHULETA III DO Jul 26, 2018 13:39
--- NOTE | 2018-07-26 13:53 | DS ---
DATE OF DISCHARGE: 07/26/2018 ADMISSION DIAGNOSES: Chest pain and dysfunctional uterine bleeding. DISCHARGE DIAGNOSIS: Atypical chest pain. PROCEDURES: Cardiac catheterization, which was clean. HOSPITAL COURSE: The patient is a pleasant 48-year-old female who presented with chest pain. She also had some vaginal bleeding. She was admitted. We consulted Cardiology and [facility] [employer] [facility]. She was placed on hormonal manipulation with progesterone type products. She was also taken to the tutorial laboratory supervisor. I saw her in the tutorial laboratory supervisor this morning, she was doing well, the cath apparently is clean. She is doing better. We plan to discharge to home. DISPOSITION: Home. ACTIVITY: As tolerated. DIET: Low sodium. MEDICATIONS: Please see MRAD. TOTAL TIME ON DISCHARGE: 38 minutes. TAMIKA ARCHULETA DO DR: DELMAR/[place] JOB#: [id number] / [id number]
--- NOTE | 2018-07-26 14:29 | PDOC2 ---
CONSULT Date of Consult Date of Consult DATE: 07/26/18 TIME: 14:23 Reason for Consult Reason for Consult: h/o anemia secondary to menorrhagia Referring Physician Referring Physician: Dr. Diaz Identification/Chief Complaint Chief Complaint chest pain Source Source: Chart review, Patient History of Present Illness Reason for Visit: 48 y/o presented with chest pain. She had work up for acute MT. Cardiology wanting to start 81 mg ASA daily. Pt. with h/o menorrhagia and fibroids. Pelvic sono indicated fibroids still present. She stopped Provera medication since she is stopped bleeding 1 month ago. She has iron tabs at home and encouraged to continue iron tabs BID. Counseled on increased risk of bleeding with ASA, however benefits for cardiac health outweigh the risks. Past Medical History Cardiovascular: HTN Endocrine: Diabetes Past Surgical History Past Surgical History: Family History Family History: Hypertension Social History ALCOHOL: none Drugs: None Current Problem List Problem List Problems Medical Problems: (1) Chest pain Status: Acute Current Medications Current Medications Current Medications Aspirin (Children'S Aspirin) 324 mg 1X ONCE PO Last administered on at 19:25; Start 07/24/18 at 19:30; Stop 07/24/18 at 19:31; Status DC Nitroglycerin (Nitrostat) 0.4 mg PRN Q5MIN PRN SL CHEST PAIN; Start 07/24/18 at 21:00; Stop 07/25/18 at 20:59; Status DC Atorvastatin Calcium (Lipitor) 40 mg QHS PO Last administered on 07/25/18at 20: 41; Start 07/24/18 at 23:00 Insulin Glargine (Lantus) 20 units QHS SQ Last administered on 07/25/18at 20:45 ; Start 07/24/18 at 23:00 Insulin Human Lispro (HumaLOG) 8 units TIDWMEALS SQ Last administered on at 17:34; Start 07/25/18 at 08:00 Metformin HCl (Glucophage) 1,000 mg BIDWMEALS PO Last administered on at 17:31; Start 07/25/18 at 08:00; Stop 07/26/18 at 10:06; Status DC Aspirin (Children'S Aspirin) 81 mg 1X ONCE PO Last administered on 07/25/18at 12:25; Start 07/25/18 at 11:45; Stop 07/25/18 at 11:46; Status DC Aspirin (Children'S Aspirin) 81 mg DAILYWBKFT PO ; Start 07/26/18 at 08:00 Metoprolol Tartrate (Lopressor) 25 mg BID PO Last administered on 07/25/18at 20 :42; Start 07/25/18 at 21:00 Dextrose (Dextrose 50%-Water Syringe) 12.5 gm PRN Q15MIN PRN IV SEE COMMENTS; Start 07/25/18 at 16:30 Lidocaine HCl (Xylocaine-Mpf 1% 2ml Vial) 2 ml STK-MED ONCE .ROUTE ; Start at 09:33; Stop 07/26/18 at 09:34; Status DC Iohexol (Omnipaque 300 Mg/ml) 100 ml STK-MED ONCE .ROUTE ; Start 07/26/18 at 09 :33; Stop 07/26/18 at 09:34; Status DC Heparin Sodium/ Sodium Chloride 500 ml @ As Directed STK-MED ONCE .ROUTE ; Start 07/26/18 at 09:33; Stop 07/26/18 at 09:34; Status DC Fentanyl Citrate (Fentanyl 2ml Vial) 100 mcg STK-MED ONCE .ROUTE ; Start at 09:43; Stop 07/26/18 at 09:44; Status DC Midazolam HCl (Versed) 2 mg STK-MED ONCE .ROUTE ; Start 07/26/18 at 09:43; Stop 07/26/18 at 09:44; Status DC Heparin Sodium (Porcine) (Heparin Sodium) 10,000 unit STK-MED ONCE .ROUTE ; Start 07/26/18 at 09:43; Stop 07/26/18 at 09:44; Status DC Verapamil HCl (Verapamil) 5 mg STK-MED ONCE .ROUTE ; Start 07/26/18 at 09:43; Stop 07/26/18 at 09:44; Status DC Nitroglycerin (Nitroglycerin) 200 mcg STK-MED ONCE .ROUTE ; Start 07/26/18 at 09:43; Stop 07/26/18 at 09:44; Status DC Nitroglycerin (Nitroglycerin) 200 mcg 1X ONCE IART Last administered on at 10:14; Start 07/26/18 at 10:15; Stop 07/26/18 at 10:16; Status DC Verapamil HCl (Verapamil) 2.5 mg 1X ONCE IART Last administered on 07/26/18at 10:14; Start 07/26/18 at 10:15; Stop 07/26/18 at 10:16; Status DC Heparin Sodium (Porcine) (Heparin Sodium) 2,500 unit 1X ONCE IART Last administered on 07/26/18at 10:15; Start 07/26/18 at 10:15; Stop 07/26/18 at 10 :16; Status DC Heparin Sodium/ Sodium Chloride (HEPARIN for ARTERIAL LINE FLUSH) 1,000 unit 1X ONCE IART Last administered on 07/26/18at 10:14; Start 07/26/18 at 10:15; Stop 07/26/18 at 10:16; Status DC Midazolam HCl (Versed) 2 mg 1X ONCE IV Last administered on 07/26/18at 10:14; Start 07/26/18 at 10:15; Stop 07/26/18 at 10:16; Status DC Fentanyl Citrate (Fentanyl 2ml Vial) 100 mcg 1X ONCE IV Last administered on 07/26/18at 10:13; Start 07/26/18 at 10:15; Stop 07/26/18 at 10:16; Status DC Iohexol (Omnipaque 300 Mg/ml) 100 ml 1X ONCE IART Last administered on at 10:12; Start 07/26/18 at 10:15; Stop 07/26/18 at 10:16; Status DC Lidocaine HCl (Xylocaine-Mpf 1% 2ml Vial) 2 ml 1X ONCE INJ Last administered on 07/26/18at 10:14; Start 07/26/18 at 10:15; Stop 07/26/18 at 10:16; Status DC Info (CONTRAST GIVEN -- Rx MONITORING) 1 each PRN DAILY PRN MC SEE COMMENTS; Start 07/26/18 at 10:15; Stop 07/28/18 at 10:14 Metformin HCl (Glucophage) 1,000 mg BIDWMEALS PO ; Start 07/28/18 at 08:00 Sodium Chloride 500 ml @ 500 mls/hr 1X ONCE IV Last administered on at 10:08; Start 07/26/18 at 10:15; Stop 07/26/18 at 11:14; Status DC Active Scripts Active Reported Atorvastatin Calcium 40 Mg Tablet 40 Mg PO DAILY Lantus Solostar (Insulin Glargine,Hum.rec.anlog) 100 Unit/1 Ml Insuln.pen 20 Units SQ HS Novolog Flexpen (Insulin Aspart) 100 Unit/1 Ml Insuln.pen 8 Units SQ TIDWMEALS Metformin Hcl 1,000 Mg Tablet 1,000 Mg PO BID Allergies Allergies: Coded Allergies: No Known Drug Allergies (Unverified , 03/02/14) ROS General: YES: Fatigue; No: Chills, Night Sweats, Malaise, Appetite, Other PSYCHOLOGICAL ROS: YES: Anxiety; No: Behavioral Disorder, Concentration difficultie, Decreased libido, Depression, Disorientation, Hallucinations, Hostility, Irritablity, Memory difficulties, Mood Swings, Obsessive thoughts, Physical abuse, Sexual abuse, Sleep disturbances, Suicidal ideation, Other Eyes: No Blurry vision, No Decreased vision, No Double vision, No Dry eyes, No Excessive tearing, No Eye Pain, No Itchy Eyes, No Loss of vision, No Photophobia , No Scotomata, No Uses contacts, No Uses glasses, No Other HEENT: No: Heacaches, Visual Changes, Hearing change, Nasal congestion, Nasal discharge, Oral lesions, Sinus pain, Sore Throat, Epistaxis, Sneezing, Snoring, Tinnitus, Vertigo, Vocal changes, Other ALLERGY AND IMMUNOLOGY: No: Hives, Insect Bite Sensitivity, Itchy/Watery Eyes, Nasal Congestion, Post Nasal Drip, Seasonal Allergies, Other Hematological and Lymphatic: No: Bleeding Problems, Blood Clots, Blood Transfusions, Brusing, Night Sweats, Pallor, Swollen Lymph Nodes, Other ENDOCRINE: No: Breast Changes, Galactorrhea, Hair Pattern Changes, Hot Flashes , Malaise/lethargy, Mood Swings, Palpitations, Polydipsia/polyuria, Skin Changes , Temperature Intolerance, Unexpected Weight Changes, Other Breast: No New/Changing Breast Lumps, No Nipple changes, No Nipple discharge, No Other Respiratory: YES: SOB with excertion Cardiovascular: yes Chest Pain; No Palpitations, No Orthopnea, No Paroxysmal Noc. Dyspnea, No Edema, No Lt Headedness, No Other Gastrointestinal: No Nausea, No Vomiting, No Abdominal Pain, No Diarrhea, No Constipation, No Melena, No Hematochezia, No Other Skin: No Dry Skin, No Eczema, No Hair Changes, No Lumps, No Mole Changes, No Mottling, No Nail Changes, No Pruritus, No Rash, No Skin Lesion Changes, No Other, No Acne Physical Exam General: Alert, Oriented X3, Cooperative HEENT: Atraumatic Lungs: Clear to auscultation Heart: Regular rate Abdomen: Normal bowel sounds, Soft, No tenderness, No masses Psych/Mental Status: Mental status NL Vitals VITALS Vital Signs Date Time Temp Pulse Resp B/P (MAP) Pulse Ox O2 Delivery O2 Flow Rate FiO2 07/26/18 11:10 98.3 91 16 142/76 (98) 97 Room Air 98.3 07/26/18 10:16 2.0 Labs Labs Laboratory Tests Test 07/24/18 19:00 07/24/18 20:10 07/25/18 01:30 07/25/18 04:45 White Blood Count 9.4 x10^3/uL (4.0-11.0) Red Blood Count 3.78 x10^6/uL (3.50-5.40) Hemoglobin 8.6 g/dL (12.0-15.5) Hematocrit 27.5 % (36.0-47.0) Mean Corpuscular Volume 73 fL (79-100) Mean Corpuscular Hemoglobin 23 pg (25-35) Mean Corpuscular Hemoglobin Concent 31 g/dL (31-37) Red Cell Distribution Width 20.3 % (11.5-14.5) Platelet Count 384 x10^3/uL (140-400) Neutrophils (%) (Auto) 66 % (31-73) Lymphocytes (%) (Auto) 26 % (24-48) Monocytes (%) (Auto) 7 % (0-9) Eosinophils (%) (Auto) 1 % (0-3) Basophils (%) (Auto) 1 % (0-3) Neutrophils # (Auto) 6.2 x10^3uL (1.8-7.7) Lymphocytes # (Auto) 2.4 x10^3/uL (1.0-4.8) Monocytes # (Auto) 0.7 x10^3/uL (0.0-1.1) Eosinophils # (Auto) 0.1 x10^3/uL (0.0-0.7) Basophils # (Auto) 0.1 x10^3/uL (0.0-0.2) Platelet Estimate Adequate (ADEQUATE) Polychromasia Mod Hypochromasia Mod Anisocytosis Mod Microcytosis Slight Tear Drop Cells Few Ovalocytes Mod Prothrombin Time 13.1 SEC (11.7-14.0) Prothromb Time International Ratio 1.0 (0.8-1.1) D-Dimer (Deanne) < 0.27 ug/mlFEU Maternal Serum HCG Beta Subunit 1 mIU/mL (0-5) Sodium Level 142 mmol/L (136-145) Potassium Level 3.9 mmol/L (3.5-5.1) Chloride Level 105 mmol/L (98-107) Carbon Dioxide Level 25 mmol/L (21-32) Anion Gap 12 (6-14) Blood Urea Nitrogen 14 mg/dL (7-20) Creatinine 0.9 mg/dL (0.6-1.0) Estimated GFR (Cockcroft-Gault) 66.5 BUN/Creatinine Ratio 16 (6-20) Glucose Level 97 mg/dL (70-99) Calcium Level 9.1 mg/dL (8.5-10.1) Total Bilirubin 0.3 mg/dL (0.2-1.0) Aspartate Amino Transf (AST/SGOT) 13 U/L (15-37) Alanine Aminotransferase (ALT/SGPT) 29 U/L (14-59) Alkaline Phosphatase 59 U/L (46-116) Troponin I Quantitative < 0.017 ng/mL (0.000-0.055) < 0.017 ng/mL (0.000-0.055) TO-Hih-L-Type Natriuretic Peptide 12 pg/mL (0-124) Total Protein 7.6 g/dL (6.4-8.2) Albumin 3.6 g/dL (3.4-5.0) Albumin/Globulin Ratio 0.9 (1.0-1.7) Triglycerides Level 136 mg/dL (0-150) Cholesterol Level 130 mg/dL (0-200) LDL Cholesterol, Calculated 73 mg/dL (0-100) VLDL Cholesterol, Calculated 27 mg/dL (0-40) Non-HDL Cholesterol Calculated 100 mg/dL (0-129) HDL Cholesterol 30 mg/dL (40-60) Cholesterol/HDL Ratio 4.3 Test 07/25/18 05:00 07/25/18 08:09 07/25/18 11:57 07/25/18 12:10 Troponin I Quantitative < 0.017 ng/mL (0.000-0.055) < 0.017 ng/mL (0.000-0.055) Glucose (Fingerstick) 184 mg/dL (70-99) 135 mg/dL (70-99) Test 07/25/18 17:21 07/25/18 20:42 07/26/18 07:30 07/26/18 11:33 Glucose (Fingerstick) 123 mg/dL (70-99) 122 mg/dL (70-99) 142 mg/dL (70-99) 119 mg/dL (70-99) Laboratory Tests Test 07/25/18 17:21 07/25/18 20:42 07/26/18 07:30 07/26/18 11:33 Glucose (Fingerstick) 123 mg/dL (70-99) 122 mg/dL (70-99) 142 mg/dL (70-99) 119 mg/dL (70-99) Assessment/Plan Assessment/Plan A: Fibroids Anemia P: Continue iron tabs BID. pt. may start 81 mg ASA daily for cardiac. Counseled on risk of bleeding. Pt. to f/u in clinic in 2 weeks. Thank you for consult. DANIAL GILLILAND Jr, MD Jul 26, 2018 14:29
[2018-07-28] MEDS ORDERED: metFORMIN 500 MG TABLET PO SCH (08:00)
== END 2018-07-26 16:30 | disposition home or self-care (01) | DRG 287 ==
LOC: ER 18:04 → 2 NORTH 21:08
PROVIDERS: ADMIT Hospitalist; ATTEND Hospitalist
PROC: 4A023N7 Measurement of Cardiac Sampling and Pressure, Left Heart, Percutaneous Approach (ICD-10-PCS; principal; 2018-07-26)
PROC: B2111ZZ Fluoroscopy of Multiple Coronary Arteries using Low Osmolar Contrast (ICD-10-PCS; 2018-07-26)
PROC: B2151ZZ Fluoroscopy of Left Heart using Low Osmolar Contrast (ICD-10-PCS; 2018-07-26)
DX: I20.9 Angina pectoris, unspecified (principal); K21.9 Gastro-esophageal reflux disease without esophagitis; E11.9 Type 2 diabetes mellitus without complications; N93.8 Other specified abnormal uterine and vaginal bleeding; D50.9 Iron deficiency anemia, unspecified; I10 Essential (primary) hypertension; D25.9 Leiomyoma of uterus, unspecified; E78.5 Hyperlipidemia, unspecified; Z98.891 History of uterine scar from previous surgery; Z79.899 Other long term (current) drug therapy; Z79.82 Long term (current) use of aspirin; Z82.49 Family history of ischemic heart disease and other diseases of the circulatory system
CPT/HCPCS: 36415; 71045; 76830; 76856; 80053; 80061; 82962; 83880; 84484; 84702; 85025; 85379; 85610; 93005; 93458; 99152; C1769; C1892; J1644; J1815; J2250; J3010; J3490; J7040; Q9967; 99285-25

== ENCOUNTER 2018-12-14 23:20 | Emergency (ER) | payer OTHER ==
[~2018-12-14] VITALS: Ht 167.6 cm; Wt 108.9 kg
[2018-12-14 23:34] VITALS: BP 144/84
[2018-12-15 00:09] LABS: BASO # 0.1 x10^3/uL (0.0-0.2); BASO % 1 % (0-3); EOS # 0.1 x10^3/uL (0.0-0.7); EOS % 1 % (0-3); HEMATOCRIT 36.7 % (36.0-47.0); HEMOGLOBIN 11.8 g/dL (12.0-15.5); LYMPH # 2.4 x10^3/uL (1.0-4.8); LYMPH % 24 % (24-48); MEAN CORPUSCULAR HEMOGLOBIN 25 pg (25-35); MEAN CORPUSCULAR HGB CONC 32 g/dL (31-37); MEAN CORPUSCULAR VOLUME 78 fL (79-100); MONO # 0.5 x10^3/uL (0.0-1.1); MONO % 5 % (0-9); NEUT # 7.1 x10^3uL (1.8-7.7); NEUT % 70 % (31-73); PLATELET COUNT 346 x10^3/uL (140-400); RED BLOOD COUNT 4.74 x10^6/uL (3.50-5.40); RED CELL DISTRIBUTION WIDTH 19.8 % (11.5-14.5); WHITE BLOOD COUNT 10.2 x10^3/uL (4.0-11.0)
--- NOTE | 2018-12-15 00:16 | PHYS DOC ---
Past Medical History Past Medical History: Diabetes-Type II, GERD, Hypertension Past Surgical History: , Hysterectomy Alcohol Use: None Drug Use: None Adult General Chief Complaint Chief Complaint: LOWER EXT PAIN HPI HPI Patient is a 39-year-old female who presents with complaint of right foot swelling and pain. Patient denies any injuries. She states that symptoms have been intermittently present for approximately a year. Patient states that she is not able to identify anything that causes the swelling. She states when the swelling is present it is painful to bear weight on her foot. She rates pain as moderate. Patient reportedly had a fever this morning but that was subjective as patient does not have a thermometer. Review of Systems Review of Systems Constitutional: Denies fever or chills [] Respiratory: Denies cough or shortness of breath [] Cardiovascular: No additional information not addressed in HPI [] Musculoskeletal: Positive right foot pain [] Integument: Denies rash or skin lesions [] Allergies Allergies Allergies Coded Allergies Type Severity Reaction Last Updated Verified No Known Drug Allergies 03/02/14 No Physical Exam Physical Exam Constitutional: Well developed, well nourished, no acute distress, non-toxic appearance. [] Cardiovascular:Heart rate regular rhythm, no murmur [] Lungs & Thorax: Bilateral breath sounds clear to auscultation [] Skin: Warm, dry, no erythema, no rash. [] Extremities: Examination of right foot demonstrates soft tissue swelling to the dorsal aspect of the foot, primarily overlying the second and third metatarsals. There is no erythema but area is warm with tenderness. [] Current Patient Data Vital Signs Vital Signs Date Time Temp Pulse Resp B/P (MAP) Pulse Ox O2 Delivery O2 Flow Rate FiO2 12/14/18 23:34 98.8 89 16 144/84 (104) 95 Room Air 98.8 Lab Values Laboratory Tests Test 12/14/18 23:55 White Blood Count 10.2 x10^3/uL (4.0-11.0) Red Blood Count 4.74 x10^6/uL (3.50-5.40) Hemoglobin 11.8 g/dL (12.0-15.5) L Hematocrit 36.7 % (36.0-47.0) Mean Corpuscular Volume 78 fL (79-100) L Mean Corpuscular Hemoglobin 25 pg (25-35) Mean Corpuscular Hemoglobin Concent 32 g/dL (31-37) Red Cell Distribution Width 19.8 % (11.5-14.5) H Platelet Count 346 x10^3/uL (140-400) Neutrophils (%) (Auto) 70 % (31-73) Lymphocytes (%) (Auto) 24 % (24-48) Monocytes (%) (Auto) 5 % (0-9) Eosinophils (%) (Auto) 1 % (0-3) Basophils (%) (Auto) 1 % (0-3) Neutrophils # (Auto) 7.1 x10^3uL (1.8-7.7) Lymphocytes # (Auto) 2.4 x10^3/uL (1.0-4.8) Monocytes # (Auto) 0.5 x10^3/uL (0.0-1.1) Eosinophils # (Auto) 0.1 x10^3/uL (0.0-0.7) Basophils # (Auto) 0.1 x10^3/uL (0.0-0.2) Uric Acid 4.0 mg/dL (2.6-6.0) Laboratory Tests 12/14/18 23:55 EKG EKG [] Radiology/Procedures Radiology/Procedures [] Impressions: X-ray of right foot demonstrates no acute bony abnormalities. Course & Med Decision Making Course & Med Decision Making Pertinent Labs and Imaging studies reviewed. (See chart for details) [] Dragon Disclaimer Dragon Disclaimer This electronic medical record was generated, in whole or in part, using a voice recognition dictation system. Departure Departure Impression: Primary Impression: Foot pain, right Disposition: 01 HOME, SELF-CARE Condition: STABLE Referrals: UNKNOWN PCP NAME (PCP) Patient Instructions: Musculoskeletal Pain Scripts Diclofenac Sodium (DICLOFENAC SODIUM) 50 Mg Tablet. 1 TAB PO BID PRN for PAIN, #20 TAB Prov: FEDE LEWIS Jr. DO 12/15/18 FEDE LEWIS Jr. DO Dec 15, 2018 00:16
[2018-12-15] MEDS ORDERED: DICL50TA4 PO (00:29)
--- NOTE | 2018-12-15 08:58 | RAD ---
Examination: FOOT RIGHT 3V History: SWELLING AND PAIN TO FOOT Comparison/Correlation: 12/08/2017 right foot 3 view x-ray exam Findings: A total 3 images of the right foot were obtained. Small calcaneal spur is present. Soft tissues are unremarkable. No displaced fracture or bony destruction. Bone island involving distal tibia noted. Impression: No suspicious process or new findings in the interval. Electronically signed by: Binh Simmons MD (12/15/2018 8:55 AM) [id number]
== END 2018-12-15 00:40 | disposition home or self-care (01) ==
LOC: ER 23:20
DX: M79.671 Pain in right foot (principal); E11.9 Type 2 diabetes mellitus without complications; K21.9 Gastro-esophageal reflux disease without esophagitis; I10 Essential (primary) hypertension; Z98.890 Other specified postprocedural states; Z90.710 Acquired absence of both cervix and uterus
CPT/HCPCS: 36415; 73630; 84550; 85025; 99285-25

== ENCOUNTER 2019-03-27 16:42 | Emergency (ER) | payer MEDICAID, OTHER ==
[~2019-03-27] VITALS: Ht 170.2 cm; Wt 108.9 kg
[~2019-03-27 16:42] MED LIST changes: -PANT40TA3 PO; +PANT40TA77 PO
--- NOTE | 2019-03-27 17:00 | PHYS DOC ---
Past Medical History Past Medical History: Diabetes-Type II, GERD, Hypertension Past Surgical History: , Hysterectomy Alcohol Use: None Drug Use: None Adult General Chief Complaint Chief Complaint: FLANK PAIN HPI HPI Patient is a 48 year old -year-old female that presents with bilateral flank pain that started last night. The patient states that she was nauseous 3 days ago, and has not had a bowel movement in 3 days. The patient also states that she is in 10 out of 10 pain, and is sharp. Not tried any medication at home. Review of Systems Review of Systems Constitutional: Denies fever or chills [] Eyes: Denies change in visual acuity, redness, or eye pain [] HENT: Denies nasal congestion or sore throat [] Respiratory: Denies cough or shortness of breath [] Cardiovascular: No additional information not addressed in HPI [] GI: Reports abdominal pain Denies nausea, vomiting, bloody stools or diarrhea [] : Denies dysuria or hematuria [] Musculoskeletal: Reports back pain Integument: Denies rash or skin lesions [] Neurologic: Denies headache, focal weakness or sensory changes [] Endocrine: Denies polyuria or polydipsia [] Complete systems were reviewed and found to be within normal limits, except as documented in this note. Current Medications Current Medications Current Medications Medications (Trade) Dose Ordered Sig/[facility] Start Time Stop Time Status Last Admin Dose Admin Morphine Sulfate (Morphine Sulfate) 2 mg 1X ONCE 03/27/19 17:30 03/27/19 17:31 DC 03/27/19 17:30 2 MG Ondansetron HCl (Zofran) 4 mg 1X ONCE 03/27/19 17:30 03/27/19 17:31 DC 03/27/19 17:30 4 MG Sodium Chloride 500 ml @ 500 mls/hr 1X ONCE 03/27/19 17:30 03/27/19 18:29 DC 03/27/19 17:30 500 MLS/HR Allergies Allergies Allergies Coded Allergies Type Severity Reaction Last Updated Verified No Known Drug Allergies 03/02/14 No Physical Exam Physical Exam Constitutional: Well developed, well nourished, no acute distress, non-toxic appearance. [] HENT: Normocephalic, atraumatic, bilateral external ears normal, oropharynx moist, no oral exudates, nose normal. [] Eyes: PERRLA, EOMI, conjunctiva normal, no discharge. [] Neck: Normal range of motion, no tenderness, supple, no stridor. [] Cardiovascular:Heart rate regular rhythm, no murmur [] Lungs & Thorax: Bilateral breath sounds clear to auscultation [] Abdomen: Bowel sounds hypoactive, soft, diffuse tenderness, no masses, no pulsatile masses. [] Skin: Warm, dry, no erythema, no rash. [] Back: has bilateral CVA tenderness. [] Extremities: No tenderness, no cyanosis, no clubbing, ROM intact, no edema. [] Neurologic: Alert and oriented X 3, normal motor function, normal sensory function, no focal deficits noted. [] Psychologic: Affect normal, judgement normal, mood normal. [] Current Patient Data Vital Signs Vital Signs Date Time Temp Pulse Resp B/P (MAP) Pulse Ox O2 Delivery O2 Flow Rate FiO2 03/27/19 18:46 77 16 136/70 (92) 97 Room Air 03/27/19 16:50 97.9 97.9 Lab Values Laboratory Tests Test 03/27/19 17:00 03/27/19 18:32 White Blood Count 8.1 x10^3/uL (4.0-11.0) Red Blood Count 4.31 x10^6/uL (3.50-5.40) Hemoglobin 11.7 g/dL (12.0-15.5) L Hematocrit 35.7 % (36.0-47.0) L Mean Corpuscular Volume 83 fL (79-100) Mean Corpuscular Hemoglobin 27 pg (25-35) Mean Corpuscular Hemoglobin Concent 33 g/dL (31-37) Red Cell Distribution Width 17.4 % (11.5-14.5) H Platelet Count 289 x10^3/uL (140-400) Neutrophils (%) (Auto) 68 % (31-73) Lymphocytes (%) (Auto) 24 % (24-48) Monocytes (%) (Auto) 6 % (0-9) Eosinophils (%) (Auto) 1 % (0-3) Basophils (%) (Auto) 1 % (0-3) Neutrophils # (Auto) 5.5 x10^3/uL (1.8-7.7) Lymphocytes # (Auto) 2.0 x10^3/uL (1.0-4.8) Monocytes # (Auto) 0.5 x10^3/uL (0.0-1.1) Eosinophils # (Auto) 0.1 x10^3/uL (0.0-0.7) Basophils # (Auto) 0.1 x10^3/uL (0.0-0.2) Sodium Level 141 mmol/L (136-145) Potassium Level 4.0 mmol/L (3.5-5.1) Chloride Level 105 mmol/L (98-107) Carbon Dioxide Level 25 mmol/L (21-32) Anion Gap 11 (6-14) Blood Urea Nitrogen 11 mg/dL (7-20) Creatinine 0.9 mg/dL (0.6-1.0) Estimated GFR (Cockcroft-Gault) 66.5 BUN/Creatinine Ratio 12 (6-20) Glucose Level 127 mg/dL (70-99) H Calcium Level 9.2 mg/dL (8.5-10.1) Total Bilirubin 0.2 mg/dL (0.2-1.0) Aspartate Amino Transferase (AST) 26 U/L (15-37) Alanine Aminotransferase (ALT) 50 U/L (14-59) Alkaline Phosphatase 54 U/L (46-116) Total Protein 7.7 g/dL (6.4-8.2) Albumin 3.6 g/dL (3.4-5.0) Albumin/Globulin Ratio 0.9 (1.0-1.7) L Lipase 267 U/L (73-393) Urine Collection Type Unknown Urine Color Straw Urine Clarity Clear Urine pH 6.0 Urine Specific [place] <=1.005 Urine Protein Negative mg/dL (NEG-TRACE) Urine Glucose (UA) Negative mg/dL (NEG) Urine Ketones (Stick) Negative mg/dL (NEG) Urine Blood Trace (NEG) Urine Nitrite Negative (NEG) Urine Bilirubin Negative (NEG) Urine Urobilinogen Dipstick 0.2 mg/dL (0.2 mg/dL) Urine Leukocyte Esterase Negative (NEG) Urine RBC 0 /HPF (0-2) Urine WBC Occ /HPF (0-4) Urine Squamous Epithelial Cells Many /LPF Urine Bacteria Many /HPF (0-FEW) Laboratory Tests 03/27/19 17:00 Laboratory Tests 03/27/19 17:00 EKG EKG [] Radiology/Procedures Radiology/Procedures [] PATIENT: DIANE LEWIS ACCOUNT: [id number] : 1970 LOCATION: ER AGE: 48 SEX: F EXAM STATUS: REG ER ORD. PHYSICIAN: WILDER FITZGERALD APRN REASON: Bilateral flank pain today PROCEDURE: CT ABDOMEN PELVIS WO CONTRAST CT ABDOMEN PELVIS WO CONTRAST Indication: Bilateral flank pain Exposure: One or more of the following individualized dose reduction techniques were utilized for this examination: 1. Automated exposure control 2. Adjustment of the mA and/or kV according to patient size 3. Use of iterative reconstruction technique. Technique: No intravenous contrast given. No oral contrast per request. Findings: Evaluation of solid viscera, bowel and vasculature is compromised by the noncontrast technique. Mild atelectasis or groundglass infiltrate in both lung bases. Heart size appears mildly enlarged. Trace pericardial fluid. Liver is enlarged, right lobe measuring 20.5 cm cephalocaudal. Liver is hypodense compatible with fatty infiltration. Heterogeneous hepatic density pattern may be due to relative areas of nonfatty infiltration. No dominant mass is seen. Lesion within the spleen at its upper aspect measures 16 Hounsfield units, most likely a cyst. Measures 3.3 cm in diameter slightly increased in size from the prior study of January 03, 2018. Pancreas is grossly unremarkable. No evidence of adrenal mass. Kidneys demonstrate no hydronephrosis or calculus. Small gallstones are identified, also seen previously. No gallbladder distention. Aorta is nonaneurysmal. No significant lymph node enlargement. No evidence of pneumoperitoneum or ascites. No significant small bowel distention. No evidence of acute colitis. Uatp-[id number] retained stool throughout the colon. Appendix is not clearly visualized. No evidence of ascites. No pneumoperitoneum. No evidence of pelvic mass. Mild degenerative changes of the spine. IMPRESSION: 1. Hepatomegaly with steatosis. 2. Lesion at the upper spleen is likely a cyst, slightly increased in size since prior study of January 03, 2018. 3. Cholelithiasis. Electronically signed by: Wilder Gutierres MD (03/27/2019 5:46 PM) [facility] DICTATED and SIGNED BY: WILDER GUTIERRES MD DATE: 03/27/19 1236 Course & Med Decision Making Course & Med Decision Making Pertinent Labs and Imaging studies reviewed. (See chart for details) Will get labs, ua, CT, and give supportive care. Labs and urine is unremarkable. CT shows fatty liver, and gallstones but gallbladder is not distended. Will have follow up with Dr. Savage, and Paulino as well as primary care doctor. Also shows some constipation. Will have get Miralax and take at home. Dragon Disclaimer Dragon Disclaimer This electronic medical record was generated, in whole or in part, using a voice recognition dictation system. Departure Departure Impression: Primary Impression: Constipation Disposition: HOME, SELF-CARE Condition: STABLE Referrals: UNKNOWN PCP NAME (PCP) JULIEN BAUM MD, SCOTT S MD Patient Instructions: Constipation, Adult Additional Instructions: Thank you for visiting [facility]. We appreciate you trusting us with your care. If any additional problems come up don't hesitate to return to visit us. Please follow up with your primary care provider so they can plan additional care if needed and know about the problem that you had. If symptoms worsen come back to the Emergency Department. Any concerning symptoms that start such as chest pain, shortness of air, weakness or numbness on one side of the body, running high fevers or any other concerning symptoms return to the ER. Please follow up with GI/General Surgery about Gallstones. Please see Primary Care Doctor about Fatty Liver. Please take Miralax over the counter per label instructions. Problem Qualifiers Primary Impression: Constipation Constipation type: unspecified constipation type Qualified Codes: K59.00 - Constipation, unspecified WILDER FITZGERALD APRN Mar 27, 2019 17:00
[2019-03-27 17:21] LABS: BASO # 0.1 x10^3/uL (0.0-0.2); BASO % 1 % (0-3); EOS # 0.1 x10^3/uL (0.0-0.7); EOS % 1 % (0-3); HEMATOCRIT 35.7 % (36.0-47.0); HEMOGLOBIN 11.7 g/dL (12.0-15.5); LYMPH % 24 % (24-48); MEAN CORPUSCULAR HEMOGLOBIN 27 pg (25-35); MEAN CORPUSCULAR HGB CONC 33 g/dL (31-37); MEAN CORPUSCULAR VOLUME 83 fL (79-100); MONO # 0.5 x10^3/uL (0.0-1.1); MONO % 6 % (0-9); NEUT # 5.5 x10^3/uL (1.8-7.7); NEUT % 68 % (31-73); PLATELET COUNT 289 x10^3/uL (140-400); RED BLOOD COUNT 4.31 x10^6/uL (3.50-5.40); RED CELL DISTRIBUTION WIDTH 17.4 % (11.5-14.5); WHITE BLOOD COUNT 8.1 x10^3/uL (4.0-11.0)
[2019-03-27] MEDS ORDERED: MORPHINE SULFATE 2 MG/ML VIAL. IV ONE (17:30)
[2019-03-27] MEDS ORDERED: IV NORMAL SALINE 500ML BAG 500 ML IV ONE (17:30)
[2019-03-27] MEDS ORDERED: ONDANSETRON PF 4 MG/2 ML VIAL. IV ONE (17:30)
[2019-03-27 17:31] LABS: CALCIUM 9.2 mg/dL (8.5-10.1); CREATININE 0.9 mg/dL (0.6-1.0); GFR 66.5
[2019-03-27 17:37] LABS: ALBUMIN 3.6 g/dL (3.4-5.0); ALBUMIN/GLOBULIN RATIO 0.9 (1.0-1.7); TOTAL BILIRUBIN 0.2 mg/dL (0.2-1.0); TOTAL PROTEIN 7.7 g/dL (6.4-8.2)
--- NOTE | 2019-03-27 17:49 | RAD ---
CT ABDOMEN PELVIS WO CONTRAST Indication: Bilateral flank pain Exposure: One or more of the following individualized dose reduction techniques were utilized for this examination: 1. Automated exposure control 2. Adjustment of the mA and/or kV according to patient size 3. Use of iterative reconstruction technique. Technique: No intravenous contrast given. No oral contrast per request. Findings: Evaluation of solid viscera, bowel and vasculature is compromised by the noncontrast technique. Mild atelectasis or groundglass infiltrate in both lung bases. Heart size appears mildly enlarged. Trace pericardial fluid. Liver is enlarged, right lobe measuring 20.5 cm cephalocaudal. Liver is hypodense compatible with fatty infiltration. Heterogeneous hepatic density pattern may be due to relative areas of nonfatty infiltration. No dominant mass is seen. Lesion within the spleen at its upper aspect measures 16 Hounsfield units, most likely a cyst. Measures 3.3 cm in diameter slightly increased in size from the prior study of January 03, 2018. Pancreas is grossly unremarkable. No evidence of adrenal mass. Kidneys demonstrate no hydronephrosis or calculus. Small gallstones are identified, also seen previously. No gallbladder distention. Aorta is nonaneurysmal. No significant lymph node enlargement. No evidence of pneumoperitoneum or ascites. No significant small bowel distention. No evidence of acute colitis. Fypg-oe-iqxvktdw retained stool throughout the colon. Appendix is not clearly visualized. No evidence of ascites. No pneumoperitoneum. No evidence of pelvic mass. Mild degenerative changes of the spine. IMPRESSION: 1. Hepatomegaly with steatosis. 2. Lesion at the upper spleen is likely a cyst, slightly increased in size since prior study of January 03, 2018. 3. Cholelithiasis. Electronically signed by: Wilder Gutierres MD (03/27/2019 5:46 PM) [facility]
[2019-03-27 18:46] VITALS: BP 136/70
[2019-03-27 18:49] LABS: BILIRUBIN,URINE NEGATIVE (NEG); CLARITY,URINE CLEAR; NITRITE,URINE NEGATIVE (NEG); PROTEIN,URINE NEGATIVE (NEG-TRACE); UROBILINOGEN,URINE 0.2 mg/dL (0.2 mg/dL)
[2019-03-27 18:55] LABS: COLOR,URINE STRAW
[2019-03-27 18:58] LABS: BACTERIA,URINE MANY /HPF (0-FEW); RBC,URINE 0 /HPF (0-2); SQUAMOUS EPITHELIAL CELL,UR MANY /LPF; WBC,URINE OCC /HPF (0-4)
== END 2019-03-27 19:20 | disposition home or self-care (01) ==
LOC: ER 16:42
DX: K59.00 Constipation, unspecified (principal); K80.20 Calculus of gallbladder without cholecystitis without obstruction; K21.9 Gastro-esophageal reflux disease without esophagitis; I10 Essential (primary) hypertension; E11.9 Type 2 diabetes mellitus without complications; Z98.890 Other specified postprocedural states; R16.0 Hepatomegaly, not elsewhere classified; Z90.710 Acquired absence of both cervix and uterus
CPT/HCPCS: 36415; 74176; 80053; 81001; 83690; 85025; 87086; 96374; 96375; 99285; J2270; J2405; J7040

== ENCOUNTER 2019-04-09 00:29 | Emergency (ER) | payer MEDICAID ==
[~2019-04-09] VITALS: Ht 170.2 cm; Wt 112.5 kg
[2019-04-09] MEDS ORDERED: IV NORMAL SALINE 1000ML BAG 1,000 ML IV ONE (00:45)
[2019-04-09 00:58] LABS: BILIRUBIN,URINE NEGATIVE (NEG); CLARITY,URINE CLOUDY; COLOR,URINE YELLOW; NITRITE,URINE NEGATIVE (NEG); PH,URINE 5.5; PROTEIN,URINE 100 mg/dL (NEG-TRACE); UROBILINOGEN,URINE 0.2 mg/dL (0.2 mg/dL)
[2019-04-09 01:04] LABS: SQUAMOUS EPITHELIAL CELL,UR MANY /LPF
[2019-04-09 01:05] LABS: BACTERIA,URINE MODERATE /HPF (0-FEW); RBC,URINE OCC /HPF (0-2)
[2019-04-09 01:24] LABS: BASO % 0 % (0-3); EOS # 0.1 x10^3/uL (0.0-0.7); EOS % 1 % (0-3); HEMATOCRIT 38.1 % (36.0-47.0); HEMOGLOBIN 12.3 g/dL (12.0-15.5); LYMPH # 2.6 x10^3/uL (1.0-4.8); LYMPH % 35 % (24-48); MEAN CORPUSCULAR HEMOGLOBIN 27 pg (25-35); MEAN CORPUSCULAR HGB CONC 32 g/dL (31-37); MEAN CORPUSCULAR VOLUME 83 fL (79-100); MONO # 0.5 x10^3/uL (0.0-1.1); MONO % 7 % (0-9); NEUT # 4.3 x10^3/uL (1.8-7.7); NEUT % 57 % (31-73); PLATELET COUNT 269 x10^3/uL (140-400); RED CELL DISTRIBUTION WIDTH 16.8 % (11.5-14.5); WHITE BLOOD COUNT 7.6 x10^3/uL (4.0-11.0)
--- NOTE | 2019-04-09 01:32 | PHYS DOC ---
Past Medical History Past Medical History: Diabetes-Type II, Hypertension Past Surgical History: , Hysterectomy Alcohol Use: None Drug Use: None Adult General Chief Complaint Chief Complaint: SYNCOPE HPI HPI Ms. Vazquez is a pleasant 48yo [place] F w/ PMH significant for T2DM, HTN, HLD, and GERD presents w/ syncope. Previously well managed on NovoLog taken 4 times per day but was then switched to Trulicity taken 1 time per week. Due to insurance changes, Trulicity is no longer covered and the patient was then switched to daily Victoza last month. Trulicity at-home blood sugar levels range in the 70-90s. Victoza at-home blood sugar checks range in the 160-180s. Since medication change, the patient has experienced 3 episodes of "fainting over the last week or 2" with the most recent episode occurring yesterday. The patient fainted yesterday and remained unresponsive for 30 minutes according to family. She did not hit her head but does complain of a FISHMAN. Vomited 2 days ago, no blood. Denies current nausea or extremity numbness or tingling. Review of Systems Review of Systems Constitutional: Denies fever or chills Eyes: Denies redness or eye pain HENT: Denies nasal congestion or sore throat Respiratory: Denies cough or shortness of breath Cardiovascular: Reports chest tenderness. Denies chest pain or palpitations GI: Reports nausea, vomiting, abdominal pain, and constipation. Denies hematochezia or hematemesis. : Reports nocturia. Denies polyuria, dysuria or hematuria Musculoskeletal: Denies back pain or joint pain Integument: Denies rash or skin lesions Neurologic: Reports FISHMAN, dizziness, lightheadedness. Denies focal weakness or sensory changes. Complete systems were reviewed and found to be within normal limits, except as documented in this note. Current Medications Current Medications Current Medications Medications (Trade) Dose Ordered Sig/Asha Start Time Stop Time Status Last Admin Dose Admin Ondansetron HCl (Zofran) 4 mg 1X ONCE 04/09/19 04:00 04/09/19 04:01 UNV 04/09/19 04:09 4 MG Sodium Chloride 1,000 ml @ 1,000 mls/hr 1X ONCE 04/09/19 00:45 04/09/19 01:44 DC 04/09/19 01:19 1,000 MLS/HR Allergies Allergies Allergies Coded Allergies Type Severity Reaction Last Updated Verified No Known Drug Allergies 03/02/14 No Physical Exam Physical Exam Constitutional: pleasant, well developed, obese, no acute distress, non-toxic appearance HENT: Normocephalic, atraumatic, oropharynx moist Eyes: PERRL, EOMI, conjunctiva normal, no discharge Neck: Normal range of motion, no tenderness, supple, no cervical or supraclavicular LAD Cardiovascular: Heart rate normal, regular rhythm w/o gallops, rubs, murmurs Lungs & Thorax: Bilateral breath sounds clear to auscultation throughout, no wheezing Abdomen: Soft, mild distension, mild suprapubic and epigastric tenderness Skin: Warm, dry, no erythema, no rash Back: No tenderness, no CVA tenderness Extremities: No tenderness, ROM intact, no edema Neurologic: Alert and oriented X 3, normal motor function, normal sensory function, no focal deficits noted Psychologic: Affect normal, judgement normal, mood normal Current Patient Data Vital Signs Vital Signs Date Time Temp Pulse Resp B/P (MAP) Pulse Ox O2 Delivery O2 Flow Rate FiO2 04/09/19 03:56 74 21 143/77 (99) 97 Room Air 04/09/19 00:45 97.9 97.9 Lab Values Laboratory Tests Test 04/09/19 00:35 04/09/19 01:00 04/09/19 01:15 Urine Collection Type Unknown Urine Color Yellow Urine Clarity Cloudy Urine pH 5.5 Urine Specific [place] 1.025 Urine Protein 100 mg/dL (NEG-TRACE) Urine Glucose (UA) Negative mg/dL (NEG) Urine Ketones (Stick) Negative mg/dL (NEG) Urine Blood Trace (NEG) Urine Nitrite Negative (NEG) Urine Bilirubin Negative (NEG) Urine Urobilinogen Dipstick 0.2 mg/dL (0.2 mg/dL) Urine Leukocyte Esterase Small (NEG) Urine RBC Occ /HPF (0-2) Urine WBC 5-10 /HPF (0-4) Urine Squamous Epithelial Cells Many /LPF Urine Bacteria Moderate /HPF (0-FEW) Urine Mucus Mod /LPF Glucose (Fingerstick) 133 mg/dL (70-99) H White Blood Count 7.6 x10^3/uL (4.0-11.0) Red Blood Count 4.60 x10^6/uL (3.50-5.40) Hemoglobin 12.3 g/dL (12.0-15.5) Hematocrit 38.1 % (36.0-47.0) Mean Corpuscular Volume 83 fL (79-100) Mean Corpuscular Hemoglobin 27 pg (25-35) Mean Corpuscular Hemoglobin Concent 32 g/dL (31-37) Red Cell Distribution Width 16.8 % (11.5-14.5) H Platelet Count 269 x10^3/uL (140-400) Neutrophils (%) (Auto) 57 % (31-73) Lymphocytes (%) (Auto) 35 % (24-48) Monocytes (%) (Auto) 7 % (0-9) Eosinophils (%) (Auto) 1 % (0-3) Basophils (%) (Auto) 0 % (0-3) Neutrophils # (Auto) 4.3 x10^3/uL (1.8-7.7) Lymphocytes # (Auto) 2.6 x10^3/uL (1.0-4.8) Monocytes # (Auto) 0.5 x10^3/uL (0.0-1.1) Eosinophils # (Auto) 0.1 x10^3/uL (0.0-0.7) Basophils # (Auto) 0.0 x10^3/uL (0.0-0.2) Sodium Level 143 mmol/L (136-145) Potassium Level 3.9 mmol/L (3.5-5.1) Chloride Level 103 mmol/L (98-107) Carbon Dioxide Level 28 mmol/L (21-32) Anion Gap 12 (6-14) Blood Urea Nitrogen 14 mg/dL (7-20) Creatinine 0.8 mg/dL (0.6-1.0) Estimated GFR (Cockcroft-Gault) 76.2 BUN/Creatinine Ratio 18 (6-20) Glucose Level 140 mg/dL (70-99) H Lactic Acid Level 1.7 mmol/L (0.4-2.0) Calcium Level 9.3 mg/dL (8.5-10.1) Magnesium Level 1.7 mg/dL (1.8-2.4) L Total Bilirubin 0.3 mg/dL (0.2-1.0) Aspartate Amino Transferase (AST) 28 U/L (15-37) Alanine Aminotransferase (ALT) 58 U/L (14-59) Alkaline Phosphatase 65 U/L (46-116) Creatine Kinase 41 U/L (26-192) Creatine Kinase MB (Mass) < 0.5 ng/mL (0.0-3.6) Creatine Kinase MB Relative Index % (0-4) Troponin I Quantitative < 0.017 ng/mL (0.000-0.055) Total Protein 7.5 g/dL (6.4-8.2) Albumin 3.8 g/dL (3.4-5.0) Albumin/Globulin Ratio 1.0 (1.0-1.7) Acetone Level Neg (NEG) Laboratory Tests 04/09/19 01:15 Laboratory Tests 04/09/19 01:15 EKG EKG EKG obtained @ 0111 and read @ 0118. NSR. No ST-elevations noted. 78 BPM.[] Radiology/Procedures Radiology/Procedures CT Heat w/o Contrast: No acute intracranial hemorrhage. CXR: Preliminary read by ER physician: no acute processes visualized.[] Course & Med Decision Making Course & Med Decision Making Pertinent Labs and Imaging studies reviewed. (See chart for details) Patient presented w/ syncopal episode yesterday. EKG NSR 78 BPM. Fingerstick GLU 133. UA GLU negative. Admission offered, patient declined and opted to be discharged home. Patient stable for discharge with outpatient follow-up with PCP. Discussed findings and plan with patient and family, who acknowledge understanding and agreement. [] Dragon Disclaimer Dragon Disclaimer This electronic medical record was generated, in whole or in part, using a voice recognition dictation system. Departure Departure Impression: Primary Impression: Syncope Additional Impression: Nausea Disposition: 01 HOME, SELF-CARE Condition: STABLE Referrals: UNKNOWN PCP NAME (PCP) Patient Instructions: Nausea and Vomiting, [id number], Syncope, [id number] Scripts Ondansetron Hcl (ZOFRAN) 4 Mg Tablet 1 TAB PO Q8HRS, #30 TAB Prov: MARYSOL VILLARREAL DO 04/09/19 Problem Qualifiers MARYSOL VILLARREAL DO Apr 09, 2019 01:32
[2019-04-09 01:37] LABS: CALCIUM 9.3 mg/dL (8.5-10.1); CREATININE 0.8 mg/dL (0.6-1.0); GFR 76.2; POTASSIUM 3.9 mmol/L (3.5-5.1)
[2019-04-09 01:45] LABS: ALBUMIN 3.8 g/dL (3.4-5.0); MAGNESIUM 1.7 mg/dL (1.8-2.4); TOTAL BILIRUBIN 0.3 mg/dL (0.2-1.0); TOTAL PROTEIN 7.5 g/dL (6.4-8.2)
[2019-04-09 01:52] LABS: CREATINE KINASE 41 U/L (26-192)
--- NOTE | 2019-04-09 03:35 | RAD ---
INDICATION: Syncope COMPARISON: None. TECHNIQUE: Axial CT images obtained through the head without intravenous contrast. One or more of the following individualized dose reduction techniques were utilized for this examination: 1. Automated exposure control; 2. Adjustment of the mA and/or kV according to patient size; 3. Use of iterative reconstruction technique. FINDINGS: No intracranial hemorrhage. No midline shift. Basal cisterns patent. Ventricles and sulci are unremarkable. No acute osseous abnormality. Orbits and paranasal sinuses unremarkable. IMPRESSION: 1. No acute intracranial hemorrhage. Electronically signed by: Silver Hameed MD (04/09/2019 3:32 AM) [id number]
[2019-04-09 03:56] VITALS: BP 143/77
[2019-04-09] MEDS ORDERED: ONDANSETRON PF 4 MG/2 ML VIAL. IV ONE (04:00)
[2019-04-09] MEDS ORDERED: ONDA4TAB7 PO (04:12)
--- NOTE | 2019-04-09 08:46 | RAD ---
PORTABLE CHEST 1V Clinical Indication: Syncope. Comparison: AP chest July 24, 2018. Findings: The cardiomediastinal silhouette is normal. Lungs are clear. There is no pneumothorax. No pleural effusion is appreciated. No acute bone abnormality. IMPRESSION: No acute cardiopulmonary process. Electronically signed by: Valente Thornton MD (04/09/2019 8:43 AM) [facility]
--- NOTE | 2019-04-09 10:49 | EKG ---
[facility] [address] [place] [address] Test Date: 2019-04-09 Test Time: 01:11:15 Pat Name: DIANE LEWIS Department: Room: Gender: F Milieu Coordinator: : 1970 Requested By: MARYSOL VILLARREAL Order Number: [id number] Reading MD: Measurements Intervals [place] Rate: 78 P: 28 CO: 148 QRS: 9 QRSD: 82 T: 2 QT: 382 QTc: 439 Interpretive Statements SINUS RHYTHM OTHERWISE NORMAL ECG RI6.01 No previous ECG available for comparison
== END 2019-04-09 04:50 | disposition home or self-care (01) ==
LOC: ER 00:29
DX: R55 Syncope and collapse (principal); R11.2 Nausea with vomiting, unspecified; R51 Headache; R42 Dizziness and giddiness; R14.0 Abdominal distension (gaseous); K59.00 Constipation, unspecified; E11.9 Type 2 diabetes mellitus without complications; I10 Essential (primary) hypertension; K21.9 Gastro-esophageal reflux disease without esophagitis; E78.5 Hyperlipidemia, unspecified; Z98.890 Other specified postprocedural states; Z90.710 Acquired absence of both cervix and uterus
CPT/HCPCS: 36415; 70450; 71045; 80053; 81001; 82010; 82553; 82962; 83605; 83735; 83930; 84484; 85025; 87086; 93005; 96361; 96374; 99285; J2405; J7030

== ENCOUNTER 2019-05-21 15:27 | Emergency (ER) | payer MEDICAID ==
[~2019-05-21] VITALS: Ht 175.3 cm; Wt 112.5 kg
[~2019-05-21 15:27] MED LIST changes: +ONDA4TAB7 PO
[2019-05-21] MEDS ORDERED: IV NORMAL SALINE 1000ML BAG 1,000 ML IV SCH (15:56)
[2019-05-21] MEDS ORDERED: fentaNYL PF VIAL 100 MCG/2 ML VIAL IV ONE (16:00)
--- NOTE | 2019-05-21 16:16 | PHYS DOC ---
Past Medical History Past Medical History: Diabetes-Type II, Hypertension Past Surgical History: , Hysterectomy Alcohol Use: None Drug Use: None Adult General Chief Complaint Chief Complaint: ABDOMINAL PAIN HPI HPI Patient is a 49 year old non-Kiswahili speaking female with history of diabetes, hypertension, dyslipidemia who presents with complaining of abdominal pain. 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 Patient complaining of left-sided abdominal pain with nausea and vomiting and diarrhea for the last 1 week that getting worse for the last 3 days. Patient states she has had 1-2 ep isodes of diarrhea a day with increasing to 4 or 5 episodes of watery diarrhea for the last few days and one or 2 episodes of nonbloody vomiting today with constant sharp left-sided abdominal pain and rate the pain 10 over 10. Patient denies chest pain but showing her substernal area complaining of pain without radiation or shortness of breath. Patient had abdominal pain and nausea and vomiting and diarrhea of one year ago without known diagnosis. Patient complaining of subjective fever and generalized weakness and decrease of appetite without urinary symptom and sick contact. Review of Systems Review of Systems Constitutional: Reports fever Eyes: Denies change in visual acuity, redness, or eye pain [] HENT: Denies nasal congestion or sore throat [] Respiratory: Denies cough or shortness of breath [] Cardiovascular: No additional information not addressed in HPI [] GI: Reports abdominal pain, nausea, vomiting, diarrhea [] : Denies dysuria or hematuria [] Musculoskeletal: Denies back pain or joint pain [] Integument: Denies rash or skin lesions [] Neurologic: Denies headache, focal weakness or sensory changes [] Endocrine: Denies polyuria or polydipsia [] All other systems were reviewed and found to be within normal limits, except as documented in this note. Current Medications Current Medications Current Medications Medications (Trade) Dose Ordered Sig/Asha Start Time Stop Time Status Last Admin Dose Admin Fentanyl Citrate (Fentanyl 2ml Vial) 50 mcg 1X ONCE 05/21/19 16:00 05/21/19 16:05 DC 05/21/19 16:56 50 MCG Ondansetron HCl (Zofran) 4 mg 1X ONCE 05/21/19 17:00 05/21/19 17:01 DC 05/21/19 16:56 4 MG Sodium Chloride 1,000 ml @ 1,000 mls/hr Q1H 05/21/19 15:56 05/21/19 16:55 DC 05/21/19 16:56 1,000 MLS/HR Allergies Allergies Allergies Coded Allergies Type Severity Reaction Last Updated Verified No Known Drug Allergies 03/02/14 No Physical Exam Physical Exam Constitutional: Well developed, well nourished, mild distress, non-toxic appearance, afebrile. [] HENT: Normocephalic, atraumatic. Eyes: PERRLA, EOMI, conjunctiva normal, no discharge. [] Neck: Normal range of motion, no tenderness, supple, no stridor. [] Cardiovascular:Heart rate regular rhythm, no murmur [] Lungs & Thorax: Bilateral breath sounds clear to auscultation [] Abdomen: Bowel sounds normal, soft, mildly distended, left lower quadrant guarding, no tenderness, no masses, no pulsatile masses. [] Skin: Warm, dry, no erythema, no rash. [] Back: No tenderness, no CVA tenderness. [] Extremities: No tenderness, no cyanosis, no clubbing, ROM intact, no edema. [] Neurologic: Alert and oriented X 3, no focal deficits noted. [] Psychologic: Affect anxious, judgement normal, mood normal. [] Current Patient Data Vital Signs Vital Signs Date Time Temp Pulse Resp B/P (MAP) Pulse Ox O2 Delivery O2 Flow Rate FiO2 05/21/19 18:30 95 113/74 (87) 97 Room Air 05/21/19 16:56 17 05/21/19 16:00 98.4 98.4 Lab Values Laboratory Tests Test 05/21/19 15:20 05/21/19 15:48 05/21/19 16:25 Urine Collection Type Unknown Urine Color Anabela Urine Clarity Clear Urine pH 5.5 Urine Specific [place] >=1.030 Urine Protein 30 mg/dL (NEG-TRACE) Urine Glucose (UA) Negative mg/dL (NEG) Urine Ketones (Stick) Trace mg/dL (NEG) Urine Blood Moderate (NEG) Urine Nitrite Negative (NEG) Urine Bilirubin Small (NEG) Urine Urobilinogen Dipstick 0.2 mg/dL (0.2 mg/dL) Urine Leukocyte Esterase Negative (NEG) Urine RBC 1-2 /HPF (0-2) Urine WBC Rare /HPF (0-4) Urine Squamous Epithelial Cells Mod /LPF Urine Bacteria Few /HPF (0-FEW) Urine Mucus Mod /LPF Glucose (Fingerstick) 122 mg/dL (70-99) H White Blood Count 6.7 x10^3/uL (4.0-11.0) Red Blood Count 4.85 x10^6/uL (3.50-5.40) Hemoglobin 13.1 g/dL (12.0-15.5) Hematocrit 40.0 % (36.0-47.0) Mean Corpuscular Volume 83 fL (79-100) Mean Corpuscular Hemoglobin 27 pg (25-35) Mean Corpuscular Hemoglobin Concent 33 g/dL (31-37) Red Cell Distribution Width 17.3 % (11.5-14.5) H Platelet Count 258 x10^3/uL (140-400) Neutrophils (%) (Auto) 64 % (31-73) Lymphocytes (%) (Auto) 24 % (24-48) Monocytes (%) (Auto) 11 % (0-9) H Eosinophils (%) (Auto) 1 % (0-3) Basophils (%) (Auto) 0 % (0-3) Neutrophils # (Auto) 4.3 x10^3/uL (1.8-7.7) Lymphocytes # (Auto) 1.6 x10^3/uL (1.0-4.8) Monocytes # (Auto) 0.7 x10^3/uL (0.0-1.1) Eosinophils # (Auto) 0.1 x10^3/uL (0.0-0.7) Basophils # (Auto) 0.0 x10^3/uL (0.0-0.2) Prothrombin Time 13.3 SEC (11.7-14.0) Prothrombin Time INR 1.0 (0.8-1.1) Sodium Level 143 mmol/L (136-145) Potassium Level 4.0 mmol/L (3.5-5.1) Chloride Level 104 mmol/L (98-107) Carbon Dioxide Level 25 mmol/L (21-32) Anion Gap 14 (6-14) Blood Urea Nitrogen 17 mg/dL (7-20) Creatinine 0.8 mg/dL (0.6-1.0) Estimated GFR (Cockcroft-Gault) 75.9 BUN/Creatinine Ratio 21 (6-20) H Glucose Level 111 mg/dL (70-99) H Calcium Level 9.8 mg/dL (8.5-10.1) Magnesium Level 1.6 mg/dL (1.8-2.4) L Total Bilirubin 0.4 mg/dL (0.2-1.0) Aspartate Amino Transferase (AST) 31 U/L (15-37) Alanine Aminotransferase (ALT) 51 U/L (14-59) Alkaline Phosphatase 70 U/L (46-116) Creatine Kinase 54 U/L (26-192) Troponin I Quantitative < 0.017 ng/mL (0.000-0.055) EC-Cni-E-Type Natriuretic Peptide 8 pg/mL (0-124) Total Protein 8.0 g/dL (6.4-8.2) Albumin 4.1 g/dL (3.4-5.0) Albumin/Globulin Ratio 1.1 (1.0-1.7) Lipase 176 U/L (73-393) Laboratory Tests 05/21/19 16:25 Laboratory Tests 05/21/19 16:25 EKG EKG EKG interpreted by me. EKG at 1557 showed normal sinus rhythm at rate of 97, normal FL and QT intervals, T-wave abnormalities in inferior leads, no acute ST and T-wave abnormalities. Radiology/Procedures Radiology/Procedures [][facility] [address] [place] [address] IMAGING REPORT Signed PATIENT: KIMBERLY LEWIS ACCOUNT: [id number] : 1970 LOCATION: ER AGE: 49 SEX: F EXAM STATUS: REG ER ORD. PHYSICIAN: DULCE RAE MD REASON: chest pain PROCEDURE: PORTABLE CHEST 1V AP portable chest 05/21/2019. Reason for exam: Chest pain. Comparison is made with a study of 04/09/2019. No infiltrate or effusion is seen. Heart size and pulmonary vascularity appear normal. IMPRESSION: No acute disease. Electronically signed by: Danial Payne Jr., MD (05/21/2019 5:43 PM) [facility] DICTATED and SIGNED BY: DANIAL PAYNE Jr, MD DATE: 05/21/19 174 [facility] [address] [place] [address] IMAGING REPORT Signed PATIENT: KIMBERLY LEWIS ACCOUNT: [id number] : 1970 LOCATION: ER AGE: 49 SEX: F EXAM STATUS: REG ER ORD. PHYSICIAN: DULCE RAE MD REASON: abdominal pain PROCEDURE: CT ABDOMEN PELVIS WO CONTRAST CT Abdomen and Pelvis without contrast History: Abdominal pain Technique: Noncontrast CT imaging was performed of the abdomen and pelvis. Multiplanar images are reviewed. Exposure: One or more of the following individualized dose reduction techniques were utilized for this examination: 1. Automated exposure control 2. Adjustment of the mA and/or kV according to patient size 3. Use of iterative reconstruction technique. Comparison: March 27, 2019 Findings: There is mild motion. There is diffuse hepatic steatosis. There is again hepatomegaly. There is cholelithiasis. Accurate evaluation of abdominal visceral organs is limited without intravenous contrast, no obvious focal abnormality pancreas or spleen. There is no significant hydronephrosis of either kidney, no renal or ureteral calculus identified. Accurate evaluation of bowel is limited without oral contrast, no bowel dilatation, free air, free fluid. No significant localized inflammatory type change is seen about the bowel. Appendix is not confidently identified if still present. There are some small mesenteric nodes most numerous of the right lower quadrant although not considered significantly enlarged 0.4 cm short axis dimension and findings similar. Uterus again appears enlarged. Impression: 1. No significant localized inflammatory type change is identified. Appendix is not confidently identified if still present. 2. There is diffuse hepatic steatosis and hepatomegaly. 3. There is cholelithiasis. 4. Uterus again appears enlarged. Electronically signed by: Linus Mcneil MD (05/21/2019 5:32 PM) [facility] DICTATED and SIGNED BY: LINUS MCNEIL MD DATE: 05/21/19 1730 Course & Med Decision Making Course & Med Decision Making Pertinent Labs and Imaging studies reviewed. (See chart for details) Evaluation of patient in ER showed 49-year-old female patient with complaining of nausea and vomiting and diarrhea for the last 1 week that getting worse for the last 3 days. Patient was anxious without abdominal tenderness. Labs was unremarkable for breakthrough him of 1.6. Patient treated with IV fluid and Zofran and fentanyl with improvement of her condition. Patient tolerated oral intake. CT of abdomen and pelvis did not show acute finding. Patient complaining of chest pain at arrival to ER that resolved. Plan discharge patient home with diagnoses of acute gastroenteritis. I've spoken with the patient and/or caregivers. I've explained the patient's condition, diagnosis and treatment plan based on information available to me at this time. I've answered the patient's and/or caregivers questions and addressed any concerns. The patient and/or caregivers have a good understanding the patie nt's diagnosis, condition and treatment plan as can be expected at this point. Vital signs have been stabilized. The patient's condition is stable for discharge from the emergency department. The patient will pursue further outpatient evaluation with her primary care provider or other designated consulting physician as outlined in the discharge instructions. Patient and/or caregivers are agreeable to this plan of care and follow-up instructions have been explained in detail. The patient and/or caregivers have received these instructions in written format and expressed understanding of these discharge instructions. The patient and her caregivers are aware that if any significant change in condition or worsening of symptoms should prompt him to immediately return to this of the closest emergency department. If an emergent department is not readily available I would encourage him to call 911. Erika Disclaimer Maion Disclaimer This electronic medical record was generated, in whole or in part, using a voice recognition dictation system. Departure Departure Impression: Primary Impression: Acute gastroenteritis Additional Impressions: Anxiety about health Non-cardiac chest pain Hypomagnesemia Disposition: HOME, SELF-CARE (at 1754) Condition: IMPROVED Referrals: UNKNOWN PCP NAME (PCP) Patient Instructions: Anxiety and Panic Attacks, Chest Wall Pain, Hypomagn esemia, Viral Gastroenteritis Additional Instructions: Drink plenty of liquids Follow-up with your primary care physician in 3-5 days Return to ER if not getting better Do not eat solid food for 24 hours May take [id number] Imodium as needed for diarrhea Scripts Tramadol Hcl (ULTRAM) 50 Mg Tablet 50 MG PO Q6HRS PRN for PAIN, #14 TAB 0 Refills Prov: DULCE RAE MD 05/21/19 Ondansetron Hcl (ZOFRAN) 4 Mg Tablet 1 TAB PO PRN Q6-8HRS for nausea, #12 TAB Prov: DULCE RAE MD 05/21/19 Problem Qualifiers DULCE RAE MD May 21, 2019 16:16
[2019-05-21 16:24] LABS: BILIRUBIN,URINE SMALL (NEG); CLARITY,URINE CLEAR; COLOR,URINE AMBER; NITRITE,URINE NEGATIVE (NEG); PH,URINE 5.5; PROTEIN,URINE 30 mg/dL (NEG-TRACE); UROBILINOGEN,URINE 0.2 mg/dL (0.2 mg/dL)
[2019-05-21 16:41] LABS: BACTERIA,URINE FEW /HPF (0-FEW); SQUAMOUS EPITHELIAL CELL,UR MOD /LPF; WBC,URINE RARE /HPF (0-4)
[2019-05-21 16:47] LABS: BASO % 0 % (0-3); EOS # 0.1 x10^3/uL (0.0-0.7); EOS % 1 % (0-3); HEMOGLOBIN 13.1 g/dL (12.0-15.5); LYMPH # 1.6 x10^3/uL (1.0-4.8); LYMPH % 24 % (24-48); MEAN CORPUSCULAR HEMOGLOBIN 27 pg (25-35); MEAN CORPUSCULAR HGB CONC 33 g/dL (31-37); MEAN CORPUSCULAR VOLUME 83 fL (79-100); MONO # 0.7 x10^3/uL (0.0-1.1); MONO % 11 % (0-9); NEUT # 4.3 x10^3/uL (1.8-7.7); NEUT % 64 % (31-73); PLATELET COUNT 258 x10^3/uL (140-400); RED BLOOD COUNT 4.85 x10^6/uL (3.50-5.40); RED CELL DISTRIBUTION WIDTH 17.3 % (11.5-14.5); WHITE BLOOD COUNT 6.7 x10^3/uL (4.0-11.0)
[2019-05-21 16:51] LABS: CALCIUM 9.8 mg/dL (8.5-10.1); CREATININE 0.8 mg/dL (0.6-1.0); GFR 75.9
[2019-05-21 16:53] LABS: PROTHROMBIN TIME PATIENT 13.3 SEC (11.7-14.0)
[2019-05-21 16:59] LABS: ALBUMIN 4.1 g/dL (3.4-5.0); ALBUMIN/GLOBULIN RATIO 1.1 (1.0-1.7); MAGNESIUM 1.6 mg/dL (1.8-2.4); TOTAL BILIRUBIN 0.4 mg/dL (0.2-1.0)
[2019-05-21] MEDS ORDERED: ONDANSETRON PF 4 MG/2 ML VIAL. IV ONE (17:00)
--- NOTE | 2019-05-21 17:34 | RAD ---
CT Abdomen and Pelvis without contrast History: Abdominal pain Technique: Noncontrast CT imaging was performed of the abdomen and pelvis. Multiplanar images are reviewed. Exposure: One or more of the following individualized dose reduction techniques were utilized for this examination: 1. Automated exposure control 2. Adjustment of the mA and/or kV according to patient size 3. Use of iterative reconstruction technique. Comparison: March 27, 2019 Findings: There is mild motion. There is diffuse hepatic steatosis. There is again hepatomegaly. There is cholelithiasis. Accurate evaluation of abdominal visceral organs is limited without intravenous contrast, no obvious focal abnormality pancreas or spleen. There is no significant hydronephrosis of either kidney, no renal or ureteral calculus identified. Accurate evaluation of bowel is limited without oral contrast, no bowel dilatation, free air, free fluid. No significant localized inflammatory type change is seen about the bowel. Appendix is not confidently identified if still present. There are some small mesenteric nodes most numerous of the right lower quadrant although not considered significantly enlarged 0.4 cm short axis dimension and findings similar. Uterus again appears enlarged. Impression: 1. No significant localized inflammatory type change is identified. Appendix is not confidently identified if still present. 2. There is diffuse hepatic steatosis and hepatomegaly. 3. There is cholelithiasis. 4. Uterus again appears enlarged. Electronically signed by: Jaden Li MD (05/21/2019 5:32 PM) [facility]
--- NOTE | 2019-05-21 17:46 | RAD ---
AP portable chest 05/21/2019. Reason for exam: Chest pain. Comparison is made with a study of 04/09/2019. No infiltrate or effusion is seen. Heart size and pulmonary vascularity appear normal. IMPRESSION: No acute disease. Electronically signed by: Drew Payne Jr., MD (05/21/2019 5:43 PM) [facility]
[2019-05-21] MEDS ORDERED: TRAM-48 PO (17:57)
[2019-05-21] MEDS ORDERED: ONDA4TAB7 PO (17:57)
[2019-05-21 18:30] VITALS: BP 113/74
--- NOTE | 2019-05-23 06:09 | EKG ---
[facility] [address] [place] [address] Test Date: 2019-05-21 Test Time: 15:57:27 Pat Name: KIMBERLY LEWIS Department: Room: Gender: F Hand Laminator: : 1970 Requested By: DULCE RAE Order Number: [id number] Reading MD: Measurements Intervals [place] Rate: 97 P: 10 CT: 136 QRS: 13 QRSD: 80 T: -6 QT: 332 QTc: 426 Interpretive Statements SINUS RHYTHM QRS(T) CONTOUR ABNORMALITY CONSIDER ANTEROLATERAL MYOCARDIAL DAMAGE T ABNORMALITY IN INFERIOR LEADS ABNORMAL ECG RI6.01 No previous ECG available for comparison
== END 2019-05-21 18:35 | disposition home or self-care (01) ==
LOC: ER 15:27
DX: K52.9 Noninfective gastroenteritis and colitis, unspecified (principal); F41.9 Anxiety disorder, unspecified; R07.89 Other chest pain; E83.42 Hypomagnesemia; E11.9 Type 2 diabetes mellitus without complications; I10 Essential (primary) hypertension; K80.20 Calculus of gallbladder without cholecystitis without obstruction; Z90.710 Acquired absence of both cervix and uterus
CPT/HCPCS: 36415; 71045; 74176; 80053; 81001; 82550; 82962; 83690; 83735; 83880; 84484; 85025; 85610; 93005; 96361; 96374; 96375; 99285; J2405; J3010; J7030

== ENCOUNTER 2019-08-17 18:20 | Observation (INO) | payer MEDICAID ==
[~2019-08-17] VITALS: Ht 167.6 cm; Wt 112.6 kg
[~2019-08-17 18:20] MED LIST changes: +TRAM-48 PO
[2019-08-17] MEDS ORDERED: IV NORMAL SALINE 1000ML BAG 1,000 ML IV SCH (18:40)
[2019-08-17] MEDS ORDERED: ASPIRIN CHEWABLE 81 MG TABLET. PO ONE (18:45)
[2019-08-17] MEDS ORDERED: ONDANSETRON PF 4 MG/2 ML VIAL. IV ONE (18:45)
[2019-08-17] MEDS ORDERED: MORPHINE SULFATE 2 MG/ML VIAL. IV/SQ PRN (18:45)
--- NOTE | 2019-08-17 19:09 | PHYS DOC ---
Past Medical History Past Medical History: Diabetes-Type II, High Cholesterol, Hypertension Past Surgical History: , Hysterectomy Alcohol Use: None Drug Use: None Adult General Chief Complaint Chief Complaint: HYPERTENSION HPI HPI Patient is a 49-year-old female who presents with complaint of chest pain that s tarted about an hour prior to arrival. Patient states that she was out walking when the chest pain came on. She also indicates that she has had some nausea but no vomiting or diaphoresis. Patient rates the pain at a 9 out of 10. She also indicates that her blood pressure and blood sugars have been elevated at home. She states that blood sugar was 260 at home. She denies any shortness of breath. She denies any abdominal pain. Patient states that symptoms were worsened with exertion and improved by nothing.[] Review of Systems Review of Systems Constitutional: Denies fever or chills [] Respiratory: Denies cough or shortness of breath [] Cardiovascular: No additional information not addressed in HPI [] GI: Denies abdominal pain, vomiting or diarrhea [] Integument: Denies rash or skin lesions [] Neurologic: Denies headache, focal weakness or sensory changes [] All other systems were reviewed and found to be within normal limits, except as documented in this note. Current Medications Current Medications Current Medications Medications (Trade) Dose Ordered Sig/[facility] Start Time Stop Time Status Last Admin Dose Admin Aspirin (Children'S Aspirin) 324 mg 1X ONCE 08/17/19 18:45 08/17/19 18:46 DC 08/17/19 19:17 324 MG Morphine Sulfate (Morphine Sulfate) 2 mg PRN Q15MIN PRN 08/17/19 18:45 08/18/19 18:44 08/17/19 19:19 2 MG Ondansetron HCl (Zofran) 4 mg 1X ONCE 08/17/19 18:45 08/17/19 18:46 DC 08/17/19 19:17 4 MG Sodium Chloride 1,000 ml @ 1,000 mls/hr Q1H 08/17/19 18:40 08/17/19 19:39 DC 08/17/19 19:17 1,000 MLS/HR Allergies Allergies Allergies Coded Allergies Type Severity Reaction Last Updated Verified No Known Drug Allergies 03/02/14 No Physical Exam Physical Exam Constitutional: Well developed, well nourished, no acute distress, non-toxic appearance. [] HENT: Normocephalic, atraumatic, bilateral external ears normal, oropharynx moist, no oral exudates, nose normal. [] Eyes: PERRLA, EOMI, conjunctiva normal, no discharge. [] Neck: Normal range of motion, no tenderness, supple, no stridor. [] Cardiovascular: Regular rate and rhythm[] Lungs & Thorax: Bilateral breath sounds clear to auscultation [] Abdomen: Bowel sounds normal, soft, no tenderness. [] Skin: Warm, dry, no erythema, no rash. [] Extremities: No tenderness, no cyanosis, no clubbing, ROM intact, no edema. [] Neurologic: Alert and oriented X 3, no focal deficits noted. [] Current Patient Data Vital Signs Vital Signs Date Time Temp Pulse Resp B/P (MAP) Pulse Ox O2 Delivery O2 Flow Rate FiO2 08/17/19 21:00 78 22 96 08/17/19 19:49 Room Air 08/17/19 18:41 98.0 172/93 (119) 98.0 Lab Values Laboratory Tests Test 08/17/19 19:04 White Blood Count 8.1 x10^3/uL (4.0-11.0) Red Blood Count 4.61 x10^6/uL (3.50-5.40) Hemoglobin 12.5 g/dL (12.0-15.5) Hematocrit 38.5 % (36.0-47.0) Mean Corpuscular Volume 84 fL (79-100) Mean Corpuscular Hemoglobin 27 pg (25-35) Mean Corpuscular Hemoglobin Concent 32 g/dL (31-37) Red Cell Distribution Width 16.9 % (11.5-14.5) H Platelet Count 300 x10^3/uL (140-400) Neutrophils (%) (Auto) 67 % (31-73) Lymphocytes (%) (Auto) 26 % (24-48) Monocytes (%) (Auto) 6 % (0-9) Eosinophils (%) (Auto) 1 % (0-3) Basophils (%) (Auto) 0 % (0-3) Neutrophils # (Auto) 5.4 x10^3/uL (1.8-7.7) Lymphocytes # (Auto) 2.1 x10^3/uL (1.0-4.8) Monocytes # (Auto) 0.5 x10^3/uL (0.0-1.1) Eosinophils # (Auto) 0.1 x10^3/uL (0.0-0.7) Basophils # (Auto) 0.0 x10^3/uL (0.0-0.2) Sodium Level 140 mmol/L (136-145) Potassium Level 3.6 mmol/L (3.5-5.1) Chloride Level 104 mmol/L (98-107) Carbon Dioxide Level 26 mmol/L (21-32) Anion Gap 10 (6-14) Blood Urea Nitrogen 10 mg/dL (7-20) Creatinine 0.8 mg/dL (0.6-1.0) Estimated GFR (Cockcroft-Gault) 75.9 BUN/Creatinine Ratio 13 (6-20) Glucose Level 172 mg/dL (70-99) H Calcium Level 9.1 mg/dL (8.5-10.1) Magnesium Level 1.5 mg/dL (1.8-2.4) L Total Bilirubin 0.3 mg/dL (0.2-1.0) Aspartate Amino Transferase (AST) 24 U/L (15-37) Alanine Aminotransferase (ALT) 44 U/L (14-59) Alkaline Phosphatase 68 U/L (46-116) Troponin I Quantitative < 0.017 ng/mL (0.000-0.055) ZO-Iby-Z-Type Natriuretic Peptide 27 pg/mL (0-124) Total Protein 7.6 g/dL (6.4-8.2) Albumin 3.7 g/dL (3.4-5.0) Albumin/Globulin Ratio 0.9 (1.0-1.7) L Lipase 255 U/L (73-393) Laboratory Tests 08/17/19 19:04 Laboratory Tests 08/17/19 19:04 EKG EKG EKG demonstrates normal sinus rhythm with rate of 90.[] Radiology/Procedures Radiology/Procedures [] Course & Med Decision Making Course & Med Decision Making Pertinent Labs and Imaging studies reviewed. (See chart for details) [] Dragon Disclaimer Dragon Disclaimer This electronic medical record was generated, in whole or in part, using a voice recognition dictation system. Departure Departure Impression: Primary Impression: Chest pain Disposition: ADMITTED INPATIENT Admitting Physician: GARDENIA (Dr. Spencer) Condition: IMPROVED Referrals: UNKNOWN PCP NAME (PCP) Problem Qualifiers Primary Impression: Chest pain Chest pain type: unspecified Qualified Codes: R07.9 - Chest pain, unspecified FEDE SPENCER Jr. DO Aug 17, 2019 19:09
[2019-08-17 19:25] LABS: BASO % 0 % (0-3); EOS # 0.1 x10^3/uL (0.0-0.7); EOS % 1 % (0-3); HEMATOCRIT 38.5 % (36.0-47.0); HEMOGLOBIN 12.5 g/dL (12.0-15.5); LYMPH # 2.1 x10^3/uL (1.0-4.8); LYMPH % 26 % (24-48); MEAN CORPUSCULAR HEMOGLOBIN 27 pg (25-35); MEAN CORPUSCULAR HGB CONC 32 g/dL (31-37); MEAN CORPUSCULAR VOLUME 84 fL (79-100); MONO # 0.5 x10^3/uL (0.0-1.1); MONO % 6 % (0-9); NEUT # 5.4 x10^3/uL (1.8-7.7); NEUT % 67 % (31-73); PLATELET COUNT 300 x10^3/uL (140-400); RED BLOOD COUNT 4.61 x10^6/uL (3.50-5.40); RED CELL DISTRIBUTION WIDTH 16.9 % (11.5-14.5); WHITE BLOOD COUNT 8.1 x10^3/uL (4.0-11.0)
[2019-08-17 19:28] LABS: CALCIUM 9.1 mg/dL (8.5-10.1); CREATININE 0.8 mg/dL (0.6-1.0); GFR 75.9; POTASSIUM 3.6 mmol/L (3.5-5.1)
[2019-08-17 19:35] LABS: ALBUMIN 3.7 g/dL (3.4-5.0); ALBUMIN/GLOBULIN RATIO 0.9 (1.0-1.7); MAGNESIUM 1.5 mg/dL (1.8-2.4); TOTAL BILIRUBIN 0.3 mg/dL (0.2-1.0); TOTAL PROTEIN 7.6 g/dL (6.4-8.2)
[2019-08-17] MEDS ORDERED: MORPHINE SULFATE 2 MG/ML VIAL. IV PRN (22:15)
[2019-08-17] MEDS ORDERED: ONDANSETRON PF 4 MG/2 ML VIAL. IV PRN (22:15)
--- NOTE | 2019-08-17 23:50 | NUR ---
The patient, DIANE LEWIS, 49 y/o, F admitted by AGGIE HOOKS MD, was given written information regarding hospital policies, unit procedures and contact persons. pt only wants to use her daughters for translation and not the interpertor line. explained grinder hand, poc, admit booklet, med phamplet and food service tray attendant phamplet. went over history and admit history as well as home meds. Valuables were checked and documented in the emr. lcrn .
[2019-08-17 23:52] VITALS: BP 164/92
[2019-08-18 02:47] VITALS: BP 127/62
--- NOTE | 2019-08-18 03:50 | RAD ---
PORTABLE CHEST 1V INDICATION: Chest pain. COMPARISON STUDY: 05/21/2019. FINDINGS: Lungs: Normal lung volume. No pulmonary mass or consolidation. The tracheobronchial tree and hilar structures are normal. Pleura: No pleural effusion or pneumothorax. Heart and Mediastinum: The cardiomediastinal silhouette is normal. The great vessels of the thorax are normal. IMPRESSION: No acute cardiopulmonary process. Electronically signed by: Jaden Urbina MD (08/18/2019 3:46 AM) [facility]
[2019-08-18] MEDS ORDERED: METF1000 PO (04:31)
[2019-08-18] MEDS ORDERED: LOSA-73 PO (04:33)
--- NOTE | 2019-08-18 06:56 | EKG ---
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
[2019-08-18 07:00] VITALS: BP 145/78
[2019-08-18 07:46] LABS: BILIRUBIN,URINE NEGATIVE (NEG); CLARITY,URINE CLEAR; COLOR,URINE YELLOW; NITRITE,URINE NEGATIVE (NEG); PH,URINE 5.5; PROTEIN,URINE 30 mg/dL (NEG-TRACE); UROBILINOGEN,URINE 0.2 mg/dL (0.2 mg/dL)
[2019-08-18 08:08] LABS: BACTERIA,URINE 0 /HPF (0-FEW); RBC,URINE 0 /HPF (0-2); SQUAMOUS EPITHELIAL CELL,UR MOD /LPF
[2019-08-18] MEDS ORDERED: LOSARTAN POTASSIUM 50 MG TABLET. PO SCH ×2 (10:15→16:30)
[2019-08-18] MEDS ORDERED: hydroCHLOROthiazide 12.5 MG CAPSULE PO ONE (10:15)
--- NOTE | 2019-08-18 10:18 | PDOC2 ---
MESERET BARRIENTOS AWNINGS MECHANIC 08/18/19 1018: CARDIAC CONSULT DATE OF CONSULT Date of Consult DATE: 08/18/19 TIME: 09:50 REASON FOR CONSULT Reason for Consult: Chest pain REFERRING PHYSICIAN Referring Physician: jT SOURCE Source: Chart review, Patient HISTORY OF PRESENT ILLNESS HISTORY OF PRESENT ILLNESS This is a pleasant 49 yo female originally from [place]. She speaks sami and daughter is at the bedside to interpret details of her symptoms. Complains of midchest tightness that radiates to immediate back. Some nausea but no complains of any arm heaviness or neck discomfort. Her chest pain is also somew hat reproducible with palpation midchest. No vomiting and no recent heavy lifting. She does do her chores at home without difficulty and no recent moving furniture or heavy lifting. However her symptoms has been in the last week and at the same time her BG has been elevated sometimes over 200s and her BP has been going up to >150/100s when she checks it. Verbalized compliance of her medications including her insulin. She has not lost wt nor exercise. No leg swelling and negative for PND nor orthopnea. She is not stressed or have any issues with anxiety. PAST MEDICAL HISTORY Cardiovascular: HTN, Hyperlipidemia Pulmonary: No pertinent hx CENTRAL NERVOUS SYSTEM: Other (no pertinent hx) GI: No pertinent hx Heme/Onc: No pertinent hx Hepatobiliary: No pertinent hx Psych: No pertinent hx Musculoskeletal: Other (obesity) Rheumatologic: No pertinent hx Infectious disease: No pertinent hx ENT: No pertinent hx Renal/: UTI Endocrine: Diabetes (2), Other (menorrhagia) Dermatology: No pertinent hx PAST SURGICAL HISTORY Past Surgical History: , Tubal Ligation, Tonsillectomy FAMILY HISTORY Family History noncontributory to CV SOCIAL HISTORY Smoke: No ALCOHOL: none Drugs: None Lives: with Family CURRENT MEDICATIONS CURRENT MEDICATIONS Current Medications Medications (Trade) Dose Ordered Sig/Asha Route PRN Reason Start Time Stop Time Status Last Admin Dose Admin Aspirin (Children'S Aspirin) 324 mg 1X ONCE PO 08/17/19 18:45 08/17/19 18:46 DC 08/17/19 19:17 Morphine Sulfate (Morphine Sulfate) 2 mg PRN Q15MIN PRN IV/SQ PAIN GREATER THAN 3/10 08/17/19 18:45 08/18/19 18:44 08/17/19 19:19 Sodium Chloride 1,000 ml @ 1,000 mls/hr Q1H IV 08/17/19 18:40 08/17/19 19:39 DC 08/17/19 19:17 Ondansetron HCl (Zofran) 4 mg 1X ONCE IV 08/17/19 18:45 08/17/19 18:46 DC 08/17/19 19:17 Morphine Sulfate (Morphine Sulfate) 2 mg PRN Q2HR PRN IV SEVERE PAIN 08/17/19 22:15 08/18/19 22:14 08/17/19 22:22 ALLERGIES ALLERGIES: Coded Allergies: No Known Drug Allergies (Unverified , 03/02/14) ROS Review of System 14 point ROS evaluated with pertinent positives noted per HPI PHYSICAL EXAM General: Alert, Oriented X3, Cooperative, No acute distress HEENT: Atraumatic, Mucous membr. moist/pink Lungs: Clear to auscultation, Normal air movement Heart: Regular rate (SR), Normal S1, Normal S2, No murmurs Abdomen: Soft, No tenderness Extremities: No cyanosis, No edema Skin: No breakdown, No significant lesion Neuro: Normal speech, Sensation intact Psych/Mental Status: Mental status NL, Mood NL MUSCULOSKELETAL: Osteoarthritic changes both hands VITALS/I&O VITALS/I&O: Vital Signs Date Time Temp Pulse Resp B/P (MAP) Pulse Ox O2 Delivery O2 Flow Rate FiO2 08/18/19 07:00 97.9 80 16 145/78 (100) 96 Room Air 97.9 I & O 08/17/19 08/17/19 08/18/19 15:00 23:00 07:00 Intake Total 1000 ml 0 ml Output Total 625 ml Balance 1000 ml -625 ml LABS Lab: Laboratory Tests Test 08/17/19 19:04 08/18/19 01:25 08/18/19 03:55 08/18/19 06:58 White Blood Count 8.1 x10^3/uL (4.0-11.0) Red Blood Count 4.61 x10^6/uL (3.50-5.40) Hemoglobin 12.5 g/dL (12.0-15.5) Hematocrit 38.5 % (36.0-47.0) Mean Corpuscular Volume 84 fL (79-100) Mean Corpuscular Hemoglobin 27 pg (25-35) Mean Corpuscular Hemoglobin Concent 32 g/dL (31-37) Red Cell Distribution Width 16.9 % (11.5-14.5) H Platelet Count 300 x10^3/uL (140-400) Neutrophils (%) (Auto) 67 % (31-73) Lymphocytes (%) (Auto) 26 % (24-48) Monocytes (%) (Auto) 6 % (0-9) Eosinophils (%) (Auto) 1 % (0-3) Basophils (%) (Auto) 0 % (0-3) Neutrophils # (Auto) 5.4 x10^3/uL (1.8-7.7) Lymphocytes # (Auto) 2.1 x10^3/uL (1.0-4.8) Monocytes # (Auto) 0.5 x10^3/uL (0.0-1.1) Eosinophils # (Auto) 0.1 x10^3/uL (0.0-0.7) Basophils # (Auto) 0.0 x10^3/uL (0.0-0.2) Sodium Level 140 mmol/L (136-145) Potassium Level 3.6 mmol/L (3.5-5.1) Chloride Level 104 mmol/L (98-107) Carbon Dioxide Level 26 mmol/L (21-32) Anion Gap 10 (6-14) Blood Urea Nitrogen 10 mg/dL (7-20) Creatinine 0.8 mg/dL (0.6-1.0) Estimated GFR (Cockcroft-Gault) 75.9 BUN/Creatinine Ratio 13 (6-20) Glucose Level 172 mg/dL (70-99) H Calcium Level 9.1 mg/dL (8.5-10.1) Magnesium Level 1.5 mg/dL (1.8-2.4) L Total Bilirubin 0.3 mg/dL (0.2-1.0) Aspartate Amino Transferase (AST) 24 U/L (15-37) Alanine Aminotransferase (ALT) 44 U/L (14-59) Alkaline Phosphatase 68 U/L (46-116) Troponin I Quantitative < 0.017 ng/mL (0.000-0.055) < 0.017 ng/mL (0.000-0.055) < 0.017 ng/mL (0.000-0.055) NC-Zfq-O-Type Natriuretic Peptide 27 pg/mL (0-124) Total Protein 7.6 g/dL (6.4-8.2) Albumin 3.7 g/dL (3.4-5.0) Albumin/Globulin Ratio 0.9 (1.0-1.7) L Lipase 255 U/L (73-393) Urine Collection Type Unknown Urine Color Yellow Urine Clarity Clear Urine pH 5.5 Urine Specific [place] 1.025 Urine Protein 30 mg/dL (NEG-TRACE) Urine Glucose (UA) Negative mg/dL (NEG) Urine Ketones (Stick) Negative mg/dL (NEG) Urine Blood Trace (NEG) Urine Nitrite Negative (NEG) Urine Bilirubin Negative (NEG) Urine Urobilinogen Dipstick 0.2 mg/dL (0.2 mg/dL) Urine Leukocyte Esterase Negative (NEG) Urine RBC 0 /HPF (0-2) Urine WBC 5-10 /HPF (0-4) Urine Squamous Epithelial Cells Mod /LPF Urine Bacteria 0 /HPF (0-FEW) Urine Mucus Marked /LPF Test 08/18/19 07:44 Glucose (Fingerstick) 205 mg/dL (70-99) H Laboratory Tests 08/17/19 19:04 Laboratory Tests 08/17/19 19:04 HEART CATH HEART CATH LEFT VENTRICULOGRAM: EF >70% Anterobasal: Normal. Anterolateral: Normal Apical: Normal Diaphragmatic: Normal Posterobasal: Normal CORONARY ANGIOGRAPHY: LM is a large caliber vessel with normal angiographic appearance. LAD is a large caliber vessel with normal angiographic appearance. Ramus is a moderate caliber vessel with normal angiographic apeparance. LCx is a moderate caliber non-dominant vessel with normal angiographic appearance. OM1 is a moderate caliber vessel with normal angiographic appearance. RCA is a large caliber dominant vessel with normal angiographic appearance. RPDA is a small caliber vessel with normal angiographic appearance. Conclusion 1. Normal left sided filling pressures. 2. Hyperdynamic LV function. EF > 70% 3. Normal angiographic appearance of the coronary arteries. Recommendations Aggressive Medical Therapy DATE: 07/26/18 1033 ASSESSMENT/PLAN ASSESSMENT/PLAN 1. Atypical chest pain: doubt ACS. possibly MSK with possibly uncontrolled BP contributing as well 2. HTN urgency: reported high at home with at least >150/100s at home in the last week 3. HLP 4. DM2 5. Morbid obesity 6. Possible GERD exacerbation: defer to PCP Recommendations 1. Outpt TTE and follow up in office in 1 month 2. Continue home losartan and add HCTZ. BID HBPM x1 wk and to call if outside parameters for further regimen adjustment 3. DASH diet, wt loss and exercise. Dietitian consult 4. A1C, TSH and lipids. 5. If BP remains controlled then anticipate DC this afternoon. RAMAN MOMIN MD 08/18/19 1815: CARDIAC CONSULT ASSESSMENT/PLAN ASSESSMENT/PLAN Pt. seen and examined. Agree with above MARINA PORTER note. MESERET BARRIENTOS APRN Aug 18, 2019 10:18 RAMAN MOMIN MD Aug 18, 2019 18:15
[2019-08-18 10:24] LABS: CHOLESTEROL/HDL RATIO 4.5
--- NOTE | 2019-08-18 10:54 | PDOC ---
[facility] PROGRESS NOTE Chief Complaint Chief Complaint Chest Pain, resolved Diabetes-Type II High Cholesterol Hypertension History of Present Illness History of Present Illness 08/18/19 Pt seen and examined DW pt and pt's daughter at length regarding her symptoms DW pt about diet for HTN and type 2 diabetes KENNY RN Reviewed pt's chart Vitals/I&O Vitals/I&O: Vital Signs Date Time Temp Pulse Resp B/P (MAP) Pulse Ox O2 Delivery O2 Flow Rate FiO2 08/18/19 07:00 97.9 80 16 145/78 (100) 96 Room Air 97.9 I & O 08/17/19 08/17/19 08/18/19 14:59 22:59 06:59 Intake Total 1000 ml 0 ml Output Total 625 ml Balance 1000 ml -625 ml Physical Exam General: Alert, Oriented X3, Cooperative Heart: Regular rate, Normal S1, Normal S2 Lungs: Clear, Other Abdomen: Normal bowel sounds, Soft Extremities: No clubbing, No cyanosis Skin: No rashes, No breakdown Labs Labs: Laboratory Tests Test 08/17/19 19:04 08/18/19 01:25 08/18/19 03:55 08/18/19 06:58 White Blood Count 8.1 x10^3/uL (4.0-11.0) Red Blood Count 4.61 x10^6/uL (3.50-5.40) Hemoglobin 12.5 g/dL (12.0-15.5) Hematocrit 38.5 % (36.0-47.0) Mean Corpuscular Volume 84 fL (79-100) Mean Corpuscular Hemoglobin 27 pg (25-35) Mean Corpuscular Hemoglobin Concent 32 g/dL (31-37) Red Cell Distribution Width 16.9 % (11.5-14.5) Platelet Count 300 x10^3/uL (140-400) Neutrophils (%) (Auto) 67 % (31-73) Lymphocytes (%) (Auto) 26 % (24-48) Monocytes (%) (Auto) 6 % (0-9) Eosinophils (%) (Auto) 1 % (0-3) Basophils (%) (Auto) 0 % (0-3) Neutrophils # (Auto) 5.4 x10^3/uL (1.8-7.7) Lymphocytes # (Auto) 2.1 x10^3/uL (1.0-4.8) Monocytes # (Auto) 0.5 x10^3/uL (0.0-1.1) Eosinophils # (Auto) 0.1 x10^3/uL (0.0-0.7) Basophils # (Auto) 0.0 x10^3/uL (0.0-0.2) Sodium Level 140 mmol/L (136-145) Potassium Level 3.6 mmol/L (3.5-5.1) Chloride Level 104 mmol/L (98-107) Carbon Dioxide Level 26 mmol/L (21-32) Anion Gap 10 (6-14) Blood Urea Nitrogen 10 mg/dL (7-20) Creatinine 0.8 mg/dL (0.6-1.0) Estimated GFR (Cockcroft-Gault) 75.9 BUN/Creatinine Ratio 13 (6-20) Glucose Level 172 mg/dL (70-99) Calcium Level 9.1 mg/dL (8.5-10.1) Magnesium Level 1.5 mg/dL (1.8-2.4) Total Bilirubin 0.3 mg/dL (0.2-1.0) Aspartate Amino Transf (AST/SGOT) 24 U/L (15-37) Alanine Aminotransferase (ALT/SGPT) 44 U/L (14-59) Alkaline Phosphatase 68 U/L (46-116) Troponin I Quantitative < 0.017 ng/mL (0.000-0.055) < 0.017 ng/mL (0.000-0.055) < 0.017 ng/mL (0.000-0.055) QR-Ckm-Z-Type Natriuretic Peptide 27 pg/mL (0-124) Total Protein 7.6 g/dL (6.4-8.2) Albumin 3.7 g/dL (3.4-5.0) Albumin/Globulin Ratio 0.9 (1.0-1.7) Lipase 255 U/L (73-393) Triglycerides Level 188 mg/dL (0-150) Cholesterol Level 127 mg/dL (0-200) LDL Cholesterol, Calculated 61 mg/dL (0-100) VLDL Cholesterol, Calculated 38 mg/dL (0-40) Non-HDL Cholesterol Calculated 99 mg/dL (0-129) HDL Cholesterol 28 mg/dL (40-60) Cholesterol/HDL Ratio 4.5 Thyroid Stimulating Hormone (TSH) 2.680 uIU/mL (0.358-3.74) Urine Collection Type Unknown Urine Color Yellow Urine Clarity Clear Urine pH 5.5 Urine Specific [place] 1.025 Urine Protein 30 mg/dL (NEG-TRACE) Urine Glucose (UA) Negative mg/dL (NEG) Urine Ketones (Stick) Negative mg/dL (NEG) Urine Blood Trace (NEG) Urine Nitrite Negative (NEG) Urine Bilirubin Negative (NEG) Urine Urobilinogen Dipstick 0.2 mg/dL (0.2 mg/dL) Urine Leukocyte Esterase Negative (NEG) Urine RBC 0 /HPF (0-2) Urine WBC 5-10 /HPF (0-4) Urine Squamous Epithelial Cells Mod /LPF Urine Bacteria 0 /HPF (0-FEW) Urine Mucus Marked /LPF Test 08/18/19 07:44 Glucose (Fingerstick) 205 mg/dL (70-99) Review of Systems Review of Systems: Pt reports dizziness when lying down at night Pt denies any CP Assessment and Plan Assessmemt and Plan Problems Medical Problems: (1) Chest pain Status: Acute Assessment Chest Pain, resolved Diabetes-Type II High Cholesterol Hypertension Plan Cardiac Monitoring Serial cardiac enzymes Serial EKGs Labs Home meds PT/OT DVT Prophylaxis Full Code Discharge if okay w/cardiology Comment Review of Relevant I have reviewed the following items marta (where applicable) has been applied. Medications: Current Medications Medications (Trade) Dose Ordered Sig/Asha Route PRN Reason Start Time Stop Time Status Last Admin Dose Admin Aspirin (Children'S Aspirin) 324 mg 1X ONCE PO 08/17/19 18:45 08/17/19 18:46 DC 08/17/19 19:17 Morphine Sulfate (Morphine Sulfate) 2 mg PRN Q15MIN PRN IV/SQ PAIN GREATER THAN 3/10 08/17/19 18:45 08/18/19 10:16 DC 08/17/19 19:19 Sodium Chloride 1,000 ml @ 1,000 mls/hr Q1H IV 08/17/19 18:40 08/17/19 19:39 DC 08/17/19 19:17 Ondansetron HCl (Zofran) 4 mg 1X ONCE IV 08/17/19 18:45 08/17/19 18:46 DC 08/17/19 19:17 Morphine Sulfate (Morphine Sulfate) 2 mg PRN Q2HR PRN IV SEVERE PAIN 08/17/19 22:15 08/18/19 22:14 08/17/19 22:22 TAMIKA ARCHULETA III DO Aug 18, 2019 10:53
[2019-08-18 11:00] VITALS: BP 151/96
--- NOTE | 2019-08-18 14:02 | NUR ---
SS following for discharge planning. SS reviewed pt chart. Pt is from home with spouse and is currently on room air. PT evaluated and reported no needs at this time. SS will continue to follow for discharge planning.
[2019-08-18 15:00] VITALS: BP 168/81
[2019-08-18] MEDS ORDERED: HYDR12.575 PO (18:19)
[2019-08-18] MEDS ORDERED: LOSA100T14 PO (18:20)
--- NOTE | 2019-08-18 18:58 | NUR ---
Discharge Note: [facility] [place] Discharge instructions and discharge home medications reviewed with Family Member and a copy given. All questions have been answered and understanding verbalized. Scripts called into [facility] pharmacy
[2019-08-18] MEDS ORDERED: ATORVASTATIN CALCIUM 40 MG TABLET. PO SCH (21:00)
--- NOTE | 2019-08-18 22:55 | SSS ---
ADMIT DATE: 08/18/2019 CHIEF COMPLAINT: Chest pain. HISTORY OF PRESENT ILLNESS: The patient is a pleasant 49-year-old female who presented with chest pain. She rates it 6/10. She has associated weakness, has been occurring for a couple of days. She took some [id number] meds that did not work, describes as agonizing. I have discussed the case with ER physician. We admitted the patient overnight for observation. Her enzymes are all negative. We consulted Cardiology. I think the patient can be able to go to home this afternoon. PAST MEDICAL HISTORY: Benign. ALLERGIES: None. FAMILY HISTORY: Hypertension. SOCIAL HISTORY: She does not drink, smoke or take drugs. MEDICATIONS: Reviewed, please refer to the MRAD. REVIEW OF SYSTEMS: GENERAL: No history of weight change, weakness or fevers. SKIN: No bruising, hair changes or rashes. EYES: No blurred, double or loss of vision. NOSE AND THROAT: No history of nosebleeds, hoarseness or sore throat. HEART: No history of palpitations, chest pain or shortness of breath on exertion. LUNGS: Denies cough, hemoptysis, wheezing or shortness of breath. GASTROINTESTINAL: Denies changes in appetite, nausea, vomiting, diarrhea or constipation. GENITOURINARY: No history of frequency, urgency, hesitancy or nocturia. NEUROLOGIC: Denies history of numbness, tingling, tremor or weakness. PSYCHIATRIC: No history of panic, anxiety or depression. ENDOCRINE: No history of heat or cold intolerance, polyuria or polydipsia. EXTREMITIES: Denies muscle weakness, joint pain, pain on walking or stiffness. PHYSICAL EXAMINATION: VITALS: Within normal limits and are stable. GENERAL: No apparent distress. Alert and oriented. HEENT: Normal cephalic atraumatic, external auditory canals are patent. EYES: Extraocular muscles are intact, pupils are equally round and reactive to light and accommodation. MUSKULOSKELETAL: Well developed, well nourished, good range of motion. ENDOCRINE: No thyromegaly was palpated. LYMPHATICS: No cervical chain or axillary nodes were noted. HEMATOPOIETIC: No bruising. NECK: Supple, no JVD, no thyromegaly was noted. LUNGS: Clear to auscultation in all lung vázquez without rhonchi or wheezing. HEART: RRR, S1, S2 present. Peripheral pulses intact, no obvious murmurs were noted. ABDOMEN: Soft, nontender. Positive bowel sounds no organomegaly, normal bowel sounds. EXTREMITIES: Without any cyanosis, clubbing, or edema. Pedal pulses intact, Homans sign is negative. NEUROLOGIC: Normal speech, normal tone. A & O x3, moves all extremities, no obvious focal deficits. PSYCHIATRIC: Normal affect, normal mood. Stable. SKIN: No ulcerations or rashes, good skin turgor, no jaundice. VASCULAR: Good capillary refill, neurovascular bundle appears to be intact. HEENT: Oriented. ASSESSMENT AND PLAN: Atypical chest pain. We will go ahead and discharge if okay with Cardiology. DISPOSITION: Home. ACTIVITY: As tolerated. DIET: Low sodium. MEDICATIONS: Please see MRAD. TOTAL TIME: 33 minutes. TAMIKA ARCHULETA DO DR: DELMAR/[place] JOB#: [id number] / [id number]
[2019-08-19 01:07] LABS: HEMOGLOBIN A1C 7.6 % (4.8-5.6)
[2019-08-19] MEDS ORDERED: hydroCHLOROthiazide 12.5 MG CAPSULE PO SCH (09:00)
[2019-08-19] MEDS ORDERED: LOSARTAN POTASSIUM 50 MG TABLET. PO SCH (09:00)
== END 2019-08-18 19:02 | disposition home or self-care (01) ==
LOC: ER 18:20 → INTOOBSV 22:10 → 2 NORTH 22:10
PROVIDERS: ADMIT Internal Medicine; ATTEND Internal Medicine
DX: R07.89 Other chest pain (principal); I10 Essential (primary) hypertension; E11.9 Type 2 diabetes mellitus without complications; E78.00 Pure hypercholesterolemia, unspecified; Z98.891 History of uterine scar from previous surgery; Z90.710 Acquired absence of both cervix and uterus
CPT/HCPCS: 36415; 71045; 80053; 80061; 81001; 82962; 83036; 83690; 83735; 83880; 84443; 84484; 85025; 87086; 93005; 96361; 96374; 96375; 96376; 99284; G0378; J2270; J2405; J7030; G0379

== ENCOUNTER 2019-10-21 22:50 | Emergency (ER) | payer MEDICAID ==
[~2019-10-21] VITALS: Ht 165.1 cm; Wt 68.0 kg
[~2019-10-21 22:50] MED LIST changes: +HYDR12.575 PO; +LOSA-73 PO; +LOSA100T14 PO; +METF1000 PO
[2019-10-21 23:46] VITALS: BP 168/81
== END 2019-10-22 00:12 | disposition left against medical advice (07) ==
LOC: ER 22:50
DX: E11.65 Type 2 diabetes mellitus with hyperglycemia (principal); Z53.21 Procedure and treatment not carried out due to patient leaving prior to being seen by health care provider
CPT/HCPCS: 82962

== ENCOUNTER 2019-10-26 17:50 | Emergency (ER) | payer MEDICAID ==
[~2019-10-26] VITALS: Ht 167.6 cm; Wt 110.0 kg
[2019-10-26] MEDS ORDERED: IV NORMAL SALINE 1000ML BAG 1,000 ML IV ONE (19:30)
[2019-10-26] MEDS ORDERED: fentaNYL PF VIAL 100 MCG/2 ML VIAL IVP ONE (19:30)
--- NOTE | 2019-10-26 19:35 | PHYS DOC ---
Past Medical History Past Medical History: Diabetes-Type II, High Cholesterol, Hypertension (BITA PAREDES APRN) Past Surgical History: , Hysterectomy (BIAT PAREDES APRN) Smoking Status: Never Smoker Alcohol Use: None Drug Use: None (BITA PAREDES APRN) Adult General Chief Complaint Chief Complaint: BLOOD SUGAR PROBLEM HPI HPI Patient is a 49 year old female who presents with patient states one week ago and very care took her off her insulin and wished her to Bydurean which is a shot once a week. She is also on metformin. She states since then her blood sugars have been uncontrolled. She states that yesterday it was 400 and earlier today it was in the 300s. Today in the ED at is 234. Patient states she has dizziness that comes and goes but usually when she is dizzy her blood sugar is up. She also states that she has burning with urination and states that she is only urinating small amounts at a time. She is having left kidney pain that started today. Patient denies blood in her urine, abdominal pain, chest pain, shortness of air, numbness or tingling, visual changes, focal weaknesses. She states that 2 days ago she was vomiting but has not vomited since. She also states that she will feel feverish at times. Patient currently rates her flank pain an 8 out of 10. (BITA PAREDES APRN) Review of Systems Review of Systems Constitutional: High blood sugars. Denies fever or chills [] GI: Left flank pain. Denies abdominal pain, nausea, vomiting, bloody stools or diarrhea [] Neurologic: Dizziness that comes and goes with high blood sugars. Denies headache, focal weakness or sensory changes [] All other systems were reviewed and found to be within normal limits, except as documented in this note. (BITA PAREDES APRN) Current Medications Current Medications Current Medications Medications (Trade) Dose Ordered Sig/Asha Start Time Stop Time Status Last Admin Dose Admin Fentanyl Citrate (Fentanyl 2ml Vial) 50 mcg 1X ONCE 10/26/19 19:30 10/26/19 19:32 DC 10/26/19 20:09 50 MCG Sodium Chloride 1,000 ml @ 1,000 mls/hr 1X ONCE 10/26/19 19:30 10/26/19 20:29 DC 10/26/19 20:09 1,000 MLS/HR (NENITA KAUR MD) Allergies Allergies Allergies Coded Allergies Type Severity Reaction Last Updated Verified No Known Drug Allergies 03/02/14 No (NENITA KAUR MD) Physical Exam Physical Exam Constitutional: Well developed, well nourished, no acute distress, non-toxic appearance. [] HENT: Normocephalic, atraumatic, bilateral external ears normal, oropharynx moist, no oral exudates, nose normal. [] Eyes: PERRLA, EOMI, conjunctiva normal, no discharge. [] Neck: Normal range of motion, no tenderness, supple, no stridor. [] Cardiovascular:Heart rate regular rhythm, no murmur [] Lungs & Thorax: Bilateral breath sounds clear to auscultation [] Abdomen: Bowel sounds normal, soft, no tenderness, no masses, no pulsatile masses. [] Skin: Warm, dry, no erythema, no rash. [] Back: No tenderness, no CVA tenderness. [] Extremities: No tenderness, no cyanosis, no clubbing, ROM intact, no edema. [] Neurologic: Alert and oriented X 3, normal motor function, normal sensory fu nction, no focal deficits noted. [] Psychologic: Affect normal, judgement normal, mood normal. Normal physical exam[] (BITA PAREDES APRN) Current Patient Data Vital Signs Vital Signs Date Time Temp Pulse Resp B/P (MAP) Pulse Ox O2 Delivery O2 Flow Rate FiO2 10/27/19 00:04 78 16 129/83 (98) 98 Room Air 10/26/19 18:48 98.0 98.0 (NENITA KAUR MD) Lab Values Laboratory Tests Test 10/26/19 19:09 10/26/19 19:25 10/26/19 23:22 Glucose (Fingerstick) 234 mg/dL (70-99) H White Blood Count 8.6 x10^3/uL (4.0-11.0) Red Blood Count 4.57 x10^6/uL (3.50-5.40) Hemoglobin 12.6 g/dL (12.0-15.5) Hematocrit 38.1 % (36.0-47.0) Mean Corpuscular Volume 83 fL (79-100) Mean Corpuscular Hemoglobin 28 pg (25-35) Mean Corpuscular Hemoglobin Concent 33 g/dL (31-37) Red Cell Distribution Width 16.9 % (11.5-14.5) H Platelet Count 290 x10^3/uL (140-400) Neutrophils (%) (Auto) 66 % (31-73) Lymphocytes (%) (Auto) 26 % (24-48) Monocytes (%) (Auto) 6 % (0-9) Eosinophils (%) (Auto) 1 % (0-3) Basophils (%) (Auto) 1 % (0-3) Neutrophils # (Auto) 5.7 x10^3/uL (1.8-7.7) Lymphocytes # (Auto) 2.2 x10^3/uL (1.0-4.8) Monocytes # (Auto) 0.5 x10^3/uL (0.0-1.1) Eosinophils # (Auto) 0.1 x10^3/uL (0.0-0.7) Basophils # (Auto) 0.1 x10^3/uL (0.0-0.2) Sodium Level 141 mmol/L (136-145) Potassium Level 3.5 mmol/L (3.5-5.1) Chloride Level 101 mmol/L (98-107) Carbon Dioxide Level 28 mmol/L (21-32) Anion Gap 12 (6-14) Blood Urea Nitrogen 17 mg/dL (7-20) Creatinine 0.9 mg/dL (0.6-1.0) Estimated GFR (Cockcroft-Gault) 66.3 BUN/Creatinine Ratio 19 (6-20) Glucose Level 251 mg/dL (70-99) H Calcium Level 9.8 mg/dL (8.5-10.1) Total Bilirubin 0.4 mg/dL (0.2-1.0) Aspartate Amino Transferase (AST) 48 U/L (15-37) H Alanine Aminotransferase (ALT) 90 U/L (14-59) H Alkaline Phosphatase 78 U/L (46-116) Troponin I Quantitative < 0.017 ng/mL (0.000-0.055) Total Protein 7.8 g/dL (6.4-8.2) Albumin 4.0 g/dL (3.4-5.0) Albumin/Globulin Ratio 1.1 (1.0-1.7) Urine Collection Type Unknown Urine Color Yellow Urine Clarity Clear Urine pH 5.5 Urine Specific [place] 1.020 Urine Protein Negative mg/dL (NEG-TRACE) Urine Glucose (UA) Negative mg/dL (NEG) Urine Ketones (Stick) Negative mg/dL (NEG) Urine Blood Small (NEG) Urine Nitrite Negative (NEG) Urine Bilirubin Negative (NEG) Urine Urobilinogen Dipstick 0.2 mg/dL (0.2 mg/dL) Urine Leukocyte Esterase Negative (NEG) Urine RBC 6-10 /HPF (0-2) Urine WBC 1-4 /HPF (0-4) Urine Squamous Epithelial Cells Few /LPF Urine Bacteria Few /HPF (0-FEW) Urine Hyaline Casts Few /HPF Urine Mucus Slight /LPF Laboratory Tests 10/26/19 19:25 Laboratory Tests 10/26/19 19:25 (NENITA KAUR MD) EKG EKG Sinus rhythm and no STEMI[] Interpretation Time: [address] Kaur (BITA PAREDES APRN) Radiology/Procedures Radiology/Procedures [] (BITA PAREDES APRN) Impressions: [facility] [address] [place], [place] [id number] IMAGING REPORT Signed PATIENT: DIANE LEWIS ACCOUNT: [id number] : 1970 LOCATION: ER AGE: 49 SEX: F EXAM STATUS: REG ER ORD. PHYSICIAN: BITA PAREDES APRN REASON: flank pain PROCEDURE: CT ABDOMEN PELVIS WO CONTRAST CT abdomen pelvis without contrast dated 10/26/2019. There is a made to 05/21/2019. Clinical data indication: Flank pain. TECHNIQUE: Contiguous axial imaging the M pelvis performed without the administration of IV or oral contrast. One or more of the following individualized dose reduction techniques were utilized for this examination: 1. Automated exposure control 2. Adjustment of the mA and/or kV according to patient size 3. Use of iterative reconstruction technique FINDINGS: Limited images of lung bases show patchy and linear opacity in the dependent lower lobes, likely scar or atelectasis. Heart size mildly enlarged. No pleural or pericardial effusion. Liver is of diffuse low density compatible with fatty infiltration. No apparent mass. Biliary tree is normal in caliber. There is a calcific stone at the gallbladder neck. No wall thickening or pericholecystic fluid. Spleen is normal in size. Pancreas, adrenal glands unremarkable. Kidneys are symmetric in size with no hydronephrosis. No calcific renal or ureteral stone. Unopacified GI tract normal in caliber and contour. No focal bowel wall thickening. No inflammatory stranding in the mesentery. Appendix not clearly identified. No inflammatory changes in the right lower quadrant. No ascites or lymphadenopathy. There is a small umbilical hernia containing only fat. Images of pelvis show mildly distended urinary bladder. Uterus and adnexa are unremarkable. No free fluid or pelvic lymphadenopathy. Bone windows show no acute findings. Mild multilevel spondylosis. IMPRESSION: 1. No acute abnormality of abdomen or pelvis. No renal stone or hydronephrosis. 2. Cholelithiasis. 3. Fatty infiltration of the liver. Electronically signed by: Wilder Lawrence MD (10/26/2019 11:26 PM) [id number] DICTATED and SIGNED BY: WILDER LAWRENCE MD DATE: 10/26/192325 (BITA PAREDES APRN) Course & Med Decision Making Course & Med Decision Making Pertinent Labs and Imaging studies reviewed. (See chart for details) She states she has not contacted her doctor to let them know that her blood sugars have been running high off and on. Patient is educated that she needs to contact her doctor so they can switch up her medications. Abdomen is soft and nontender. No CVA tenderness. Skin pink warm and dry. Alert and oriented. Speaks in full clear sentences. Ambulatory with a steady gait. No extremity swelling. Patient has a history of GERD, diabetes, hypertension, high cholesterol, anxiety. Patient states that she is not currently dizzy. PERRLA. Moves all ex tremities equally. [] (BITA PAREDES APRN) Dragon Disclaimer Dragon Disclaimer This electronic medical record was generated, in whole or in part, using a voice recognition dictation system. (BITA PAREDES APRN) Departure Departure Impression: Primary Impression: Hyperglycemia Additional Impression: Urinary symptom or sign Disposition: 01 HOME, SELF-CARE Condition: STABLE Referrals: CARMEN BARCENAS MD (PCP) Patient Instructions: Urinary Tract Infection Additional Instructions: Follow-up with primary care provider. Her primary care provider in the morning and let them know that your blood sugars are still running high and teeth been on the new medication. Take medication with food and as prescribed. Drink plenty of fluids. Scripts Cephalexin (KEFLEX) 500 Mg Capsule 1 CAP PO BID for 7 Days, #14 CAP 0 Refills Prov: BITA PAREDES APRN 10/26/19 Attending Signature I have participated in the care of this patient and I have reviewed and agree with all pertinent clinical information above including history, exam, and recommendations. (NENITA KAUR MD) Problem Qualifiers BITA PAREDES APRN Oct 26, 2019 19:35 NENITA KAUR MD Oct 27, 2019 01:19
[2019-10-26 19:38] LABS: BASO # 0.1 x10^3/uL (0.0-0.2); BASO % 1 % (0-3); EOS # 0.1 x10^3/uL (0.0-0.7); EOS % 1 % (0-3); HEMATOCRIT 38.1 % (36.0-47.0); HEMOGLOBIN 12.6 g/dL (12.0-15.5); LYMPH # 2.2 x10^3/uL (1.0-4.8); LYMPH % 26 % (24-48); MEAN CORPUSCULAR HEMOGLOBIN 28 pg (25-35); MEAN CORPUSCULAR HGB CONC 33 g/dL (31-37); MEAN CORPUSCULAR VOLUME 83 fL (79-100); MONO # 0.5 x10^3/uL (0.0-1.1); MONO % 6 % (0-9); NEUT # 5.7 x10^3/uL (1.8-7.7); NEUT % 66 % (31-73); PLATELET COUNT 290 x10^3/uL (140-400); RED BLOOD COUNT 4.57 x10^6/uL (3.50-5.40); RED CELL DISTRIBUTION WIDTH 16.9 % (11.5-14.5); WHITE BLOOD COUNT 8.6 x10^3/uL (4.0-11.0)
[2019-10-26 19:48] LABS: CALCIUM 9.8 mg/dL (8.5-10.1); CREATININE 0.9 mg/dL (0.6-1.0); GFR 66.3; POTASSIUM 3.5 mmol/L (3.5-5.1)
[2019-10-26 19:54] LABS: ALBUMIN/GLOBULIN RATIO 1.1 (1.0-1.7); TOTAL BILIRUBIN 0.4 mg/dL (0.2-1.0); TOTAL PROTEIN 7.8 g/dL (6.4-8.2)
--- NOTE | 2019-10-26 23:29 | RAD ---
CT abdomen pelvis without contrast dated 10/26/2019. There is a made to 05/21/2019. Clinical data indication: Flank pain. TECHNIQUE: Contiguous axial imaging the M pelvis performed without the administration of IV or oral contrast. One or more of the following individualized dose reduction techniques were utilized for this examination: 1. Automated exposure control 2. Adjustment of the mA and/or kV according to patient size 3. Use of iterative reconstruction technique FINDINGS: Limited images of lung bases show patchy and linear opacity in the dependent lower lobes, likely scar or atelectasis. Heart size mildly enlarged. No pleural or pericardial effusion. Liver is of diffuse low density compatible with fatty infiltration. No apparent mass. Biliary tree is normal in caliber. There is a calcific stone at the gallbladder neck. No wall thickening or pericholecystic fluid. Spleen is normal in size. Pancreas, adrenal glands unremarkable. Kidneys are symmetric in size with no hydronephrosis. No calcific renal or ureteral stone. Unopacified GI tract normal in caliber and contour. No focal bowel wall thickening. No inflammatory stranding in the mesentery. Appendix not clearly identified. No inflammatory changes in the right lower quadrant. No ascites or lymphadenopathy. There is a small umbilical hernia containing only fat. Images of pelvis show mildly distended urinary bladder. Uterus and adnexa are unremarkable. No free fluid or pelvic lymphadenopathy. Bone windows show no acute findings. Mild multilevel spondylosis. IMPRESSION: 1. No acute abnormality of abdomen or pelvis. No renal stone or hydronephrosis. 2. Cholelithiasis. 3. Fatty infiltration of the liver. Electronically signed by: Wilder Lawrence MD (10/26/2019 11:26 PM) [id number]
[2019-10-26 23:31] LABS: BILIRUBIN,URINE NEGATIVE (NEG); CLARITY,URINE CLEAR; COLOR,URINE YELLOW; NITRITE,URINE NEGATIVE (NEG); PH,URINE 5.5; PROTEIN,URINE NEGATIVE (NEG-TRACE); UROBILINOGEN,URINE 0.2 mg/dL (0.2 mg/dL)
[2019-10-26 23:40] LABS: BACTERIA,URINE FEW /HPF (0-FEW); HYALINE CASTS, URINE FEW /HPF; SQUAMOUS EPITHELIAL CELL,UR FEW /LPF
[2019-10-26] MEDS ORDERED: CEPH-264 PO (23:44)
[2019-10-27 00:04] VITALS: BP 129/83
--- NOTE | 2019-10-27 05:10 | EKG ---
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
== END 2019-10-27 00:27 | disposition home or self-care (01) ==
LOC: ER 17:50
DX: E11.65 Type 2 diabetes mellitus with hyperglycemia (principal); R30.9 Painful micturition, unspecified; R10.9 Unspecified abdominal pain; R42 Dizziness and giddiness; E78.00 Pure hypercholesterolemia, unspecified; I10 Essential (primary) hypertension; Z90.710 Acquired absence of both cervix and uterus; Z98.890 Other specified postprocedural states
CPT/HCPCS: 36415; 74176; 80053; 81001; 82962; 84484; 85025; 93005; 96361; 96374; 99285; J3010; J7030

== ENCOUNTER → 2019-12-28 | Day surgery (SDC) | payer MEDICAID ==
[~2019-12-28] MED LIST changes: +CEPH-264 PO; +EXEN2PEN SQ; +GABA600T7 PO; +HYDROmorphone 2 MG/ML VIAL IV PRN; +IV RINGERS,LACTATED 1000ML 1,000 ML IV SCH; +LIDOCAINE 1% PF 2 ML VIAL. ID PRN; +MORPHINE SULFATE 2 MG/ML VIAL. IV PRN; +OMEP40CA45 PO; +ONDANSETRON PF 4 MG/2 ML VIAL. IV PRN; +PROCHLORPERAZINE 10 MG/2 ML VIAL. IV PRN; +PROPOFOL 40 ML IV ONE; +fentaNYL PF VIAL 100 MCG/2 ML VIAL IV PRN
[2019-12-28 09:45] VITALS: BP 107/61
== END ==
LOC: ENDOS 07:39
PROVIDERS: ATTEND Internal Medicine Gastroenterology
DX: R11.0 Nausea (principal); K22.2 Esophageal obstruction; K64.0 First degree hemorrhoids; K63.89 Other specified diseases of intestine; I10 Essential (primary) hypertension; E78.00 Pure hypercholesterolemia, unspecified; E11.9 Type 2 diabetes mellitus without complications; F15.90 Other stimulant use, unspecified, uncomplicated; Z98.890 Other specified postprocedural states; Z79.84 Long term (current) use of oral hypoglycemic drugs
CPT/HCPCS: 43235; 43450; 45378; 81025; J2704

== ENCOUNTER 2020-03-06 17:16 | Emergency (ER) | payer MEDICAID ==
[~2020-03-06] VITALS: Ht 167.6 cm; Wt 110.0 kg
[~2020-03-06 17:16] MED LIST changes: -HYDROmorphone 2 MG/ML VIAL IV PRN; -IV RINGERS,LACTATED 1000ML 1,000 ML IV SCH; -LIDOCAINE 1% PF 2 ML VIAL. ID PRN; -MORPHINE SULFATE 2 MG/ML VIAL. IV PRN; -ONDANSETRON PF 4 MG/2 ML VIAL. IV PRN; -PROCHLORPERAZINE 10 MG/2 ML VIAL. IV PRN; -PROPOFOL 40 ML IV ONE; -fentaNYL PF VIAL 100 MCG/2 ML VIAL IV PRN
[2020-03-06 18:12] LABS: BASO % 1 % (0-3); EOS # 0.1 x10^3/uL (0.0-0.7); EOS % 1 % (0-3); HEMATOCRIT 43.2 % (36.0-47.0); HEMOGLOBIN 14.3 g/dL (12.0-15.5); LYMPH # 2.4 x10^3/uL (1.0-4.8); LYMPH % 28 % (24-48); MEAN CORPUSCULAR HEMOGLOBIN 28 pg (25-35); MEAN CORPUSCULAR HGB CONC 33 g/dL (31-37); MEAN CORPUSCULAR VOLUME 84 fL (79-100); MONO # 0.5 x10^3/uL (0.0-1.1); MONO % 6 % (0-9); NEUT # 5.6 x10^3/uL (1.8-7.7); NEUT % 65 % (31-73); PLATELET COUNT 313 x10^3/uL (140-400); RED BLOOD COUNT 5.15 x10^6/uL (3.50-5.40); RED CELL DISTRIBUTION WIDTH 17.3 % (11.5-14.5); WHITE BLOOD COUNT 8.6 x10^3/uL (4.0-11.0)
[2020-03-06 18:21] LABS: PROTHROMBIN TIME PATIENT 12.1 SEC (11.7-14.0)
[2020-03-06 18:24] LABS: CALCIUM 9.9 mg/dL (8.5-10.1); CREATININE 0.9 mg/dL (0.6-1.0); GFR 66.3; POTASSIUM 3.8 mmol/L (3.5-5.1)
[2020-03-06 18:31] LABS: ALBUMIN 4.5 g/dL (3.4-5.0); ALBUMIN/GLOBULIN RATIO 1.2 (1.0-1.7); TOTAL BILIRUBIN 0.4 mg/dL (0.2-1.0); TOTAL PROTEIN 8.2 g/dL (6.4-8.2)
[2020-03-06 19:24] VITALS: BP 115/72
--- NOTE | 2020-03-06 19:28 | RAD ---
AP chest. HISTORY: Pain AP view was taken of the chest. Patient's taken a poor inspiration. There are no acute infiltrates. There is no effusion. Heart is normal in size. IMPRESSION: 1. No acute chest disease. Electronically signed by: Dony Coreas MD (03/06/2020 7:26 PM) [facility]
[2020-03-06] MEDS ORDERED: FAMOTIDINE 20 MG/2 ML VIAL IVP ONE (19:30)
[2020-03-06] MEDS ORDERED: LIDO:MAALOX 1:1 20 ML SINGLE DOSE. SWSW ONE (19:30)
--- NOTE | 2020-03-06 19:35 | PHYS DOC ---
Past Medical History Past Medical History: Diabetes-Type II, High Cholesterol, Hypertension Past Surgical History: , Hysterectomy Smoking Status: Never Smoker Alcohol Use: None Drug Use: None General Adult EDM: Chief Complaint: CHEST PAIN HPI: HPI: Patient is a 49 year old female presenting to the ED with family with a chief complaint of chest pain. Patient describes that she has pain whenever she eats something. Patient states that she is choked on this. Patient states that this is been present for the last 2 to 3 days. Patient states that on December 28 she had a esophageal dilatation. Patient states that the symptoms are still present. Patient denies fever, chills, dysuria. Review of Systems: Review of Systems: Constitutional: Denies fever or chills. [] Eyes: Denies change in visual acuity. [] HENT: Denies nasal congestion or sore throat. [] Respiratory: Denies cough or shortness of breath. [] Cardiovascular: Complains of chest pain [] GI: Denies abdominal pain, nausea, vomiting, bloody stools or diarrhea. [] : Denies dysuria. [] Neurologic: Denies headache, focal weakness or sensory changes. [] Heart Score: Risk Factors: Risk Factors: DM, Current or recent (<one month) smoker, HTN, HLP, family history of CAD, obesity. Risk Scores: Score 0 - 3: 2.5% MACE over next 6 weeks - Discharge Home Score 4 - 6: 20.3% MACE over next 6 weeks - Admit for Clinical Observation Score 7 - 10: 72.7% MACE over next 6 weeks - Early Invasive Strategies Current Medications: Current Medications Medications (Trade) Dose Ordered Sig/Asha Start Time Stop Time Status Last Admin Dose Admin Famotidine (Pepcid Vial) 20 mg 1X ONCE 03/06/20 19:30 03/06/20 19:32 DC Multi-Ingredient Mouthwash/Gargle (Gi Cocktail) 20 ml 1X ONCE 03/06/20 19:30 03/06/20 19:32 DC Allergies: Allergies: Allergies Coded Allergies Type Severity Reaction Last Updated Verified No Known Drug Allergies 12/28/19 No Physical Exam: PE: Constitutional: Well developed, well nourished, no acute distress, non-toxic appearance. [] HENT: Normocephalic, atraumatic Eyes: EOMI Neck: Normal range of motion, Supple Cardiovascular: Heart rate regular rhythm Lungs & Thorax: Bilateral breath sounds clear to auscultation [] Abdomen: Bowel sounds normal, soft, no tenderness Extremities: No tenderness, ROM intact Neurologic: Alert and oriented X 3 Current Patient Data: Labs: Laboratory Tests Test 03/06/20 17:25 White Blood Count 8.6 x10^3/uL (4.0-11.0) Red Blood Count 5.15 x10^6/uL (3.50-5.40) Hemoglobin 14.3 g/dL (12.0-15.5) Hematocrit 43.2 % (36.0-47.0) Mean Corpuscular Volume 84 fL (79-100) Mean Corpuscular Hemoglobin 28 pg (25-35) Mean Corpuscular Hemoglobin Concent 33 g/dL (31-37) Red Cell Distribution Width 17.3 % (11.5-14.5) H Platelet Count 313 x10^3/uL (140-400) Neutrophils (%) (Auto) 65 % (31-73) Lymphocytes (%) (Auto) 28 % (24-48) Monocytes (%) (Auto) 6 % (0-9) Eosinophils (%) (Auto) 1 % (0-3) Basophils (%) (Auto) 1 % (0-3) Neutrophils # (Auto) 5.6 x10^3/uL (1.8-7.7) Lymphocytes # (Auto) 2.4 x10^3/uL (1.0-4.8) Monocytes # (Auto) 0.5 x10^3/uL (0.0-1.1) Eosinophils # (Auto) 0.1 x10^3/uL (0.0-0.7) Basophils # (Auto) 0.0 x10^3/uL (0.0-0.2) Prothrombin Time 12.1 SEC (11.7-14.0) Prothrombin Time INR 0.9 (0.8-1.1) Sodium Level 140 mmol/L (136-145) Potassium Level 3.8 mmol/L (3.5-5.1) Chloride Level 101 mmol/L (98-107) Carbon Dioxide Level 28 mmol/L (21-32) Anion Gap 11 (6-14) Blood Urea Nitrogen 17 mg/dL (7-20) Creatinine 0.9 mg/dL (0.6-1.0) Estimated GFR (Cockcroft-Gault) 66.3 BUN/Creatinine Ratio 19 (6-20) Glucose Level 94 mg/dL (70-99) Calcium Level 9.9 mg/dL (8.5-10.1) Total Bilirubin 0.4 mg/dL (0.2-1.0) Aspartate Amino Transferase (AST) 46 U/L (15-37) H Alanine Aminotransferase (ALT) 82 U/L (14-59) H Alkaline Phosphatase 71 U/L (46-116) Troponin I Quantitative < 0.017 ng/mL (0.000-0.055) Total Protein 8.2 g/dL (6.4-8.2) Albumin 4.5 g/dL (3.4-5.0) Albumin/Globulin Ratio 1.2 (1.0-1.7) Lipase 194 U/L (73-393) Laboratory Tests 03/06/20 17:25 Laboratory Tests 03/06/20 17:25 Vital Signs: Vital Signs Date Time Temp Pulse Resp B/P (MAP) Pulse Ox O2 Delivery O2 Flow Rate FiO2 03/06/20 17:17 98.1 106 20 147/90 (109) 98 Room Air 98.1 EKG: EKG: [EKG interpretation: 17: 25 on 03/06/2020 HR: 100 Sinus rhythm Regular intervals Normal axis Nonspecific ST changes No STEMI ] Radiology/Procedures: Radiology/Procedures: [] Impression: CXR IMPRESSION: 1. No acute chest disease. Course & Med Decision Making: Course & Med Decision Making Pertinent Labs and Imaging studies reviewed. (See chart for details) EKG does not show any acute changes. Labs are within normal limits. Troponin is negative. Chest x-ray does not show any acute cardiopulmonary disease. Symptoms most likely due to esophageal spasm or stricture. I have recommended that patient calls GI physician tomorrow morning for an appointment. We will give GI cocktail and Pepcid in case this is due to acid reflux. Discussed results and plan of care with patient. Patient is instructed to follow up with PCP in one to 2 days. Appropriate discharge instructions given to patient to return to the ED or to seek immediate medical evaluation. Patient is instructed to return to the ED if symptoms worsen or if any concerns. Dragon Disclaimer: Dragon Disclaimer: This electronic medical record was generated, in whole or in part, using a voice recognition dictation system. Departure Departure Impression: Primary Impression: Dysphagia Additional Impression: GERD (gastroesophageal reflux disease) Disposition: 01 HOME, SELF-CARE Condition: STABLE Referrals: CARMEN BARCENAS MD (PCP) Patient Instructions: Dysphagia, Gastroesophageal Reflux Disease, Adult Additional Instructions: Discussed results and plan of care with patient. Patient is instructed to follow up with PCP in one to 2 days. Appropriate discharge instructions given to patient to return to the ED or to seek immediate medical evaluation. Patient is instructed to return to the ED if symptoms worsen or if any concerns. Scripts Famotidine (PEPCID) 20 Mg Tablet 20 MG PO HS, #30 TAB Prov: DB PARHAM DO 03/06/20 Justicifation of Admission Dx: Justifications for Admission: Justification of Admission Dx: DB Rae DO Mar 06, 2020 19:35
[2020-03-06] MEDS ORDERED: FAMO-63 PO (19:42)
--- NOTE | 2020-03-07 05:59 | EKG ---
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
== END 2020-03-06 20:06 | disposition home or self-care (01) ==
LOC: ER 17:16
DX: R13.10 Dysphagia, unspecified (principal); K21.9 Gastro-esophageal reflux disease without esophagitis; R07.89 Other chest pain; E11.9 Type 2 diabetes mellitus without complications; E78.00 Pure hypercholesterolemia, unspecified; I10 Essential (primary) hypertension; Z90.710 Acquired absence of both cervix and uterus; Z98.890 Other specified postprocedural states
CPT/HCPCS: 36415; 71045; 80053; 83690; 84484; 85025; 85610; 93005; 96374; 99285; J3490

== ENCOUNTER → 2020-03-19 | Outpatient (CLI) | payer MEDICAID ==
[2020-03-06 19:24] VITALS: BP 115/72
[~2020-03-19] MED LIST changes: +CONTRAST GIVEN. MC PRN; +FAMO-63 PO; +IOHEXOL 350 MG/ML 100 ML VIAL. IV ONE
--- NOTE | 2020-03-19 13:36 | RAD ---
CT ANGIOGRAPHY CHEST INDICATION: Reason: SOB, PLEURITIC CHEST PAIN. Comparison: Radiograph 03/06/2020. CT 03/01/2014. TECHNIQUE: Following the uneventful administration of intravenous contrast, 100 cc Omnipaque 350, axial CT sections were obtained through the lungs and upper abdomen. Multiplanar reconstructions and MIP images were obtained. RS compliance statement: One or more of the following individualized dose reduction techniques were utilized for this examination: 1. Automated exposure control 2. Adjustment of the mA and/or kV according to patient size 3. Use of iterative reconstruction technique FINDINGS: Pulmonary arteries: No evidence of central, lobar, or segmental pulmonary thromboembolic disease. Subsegmental branches not well evaluated due to respiratory motion artifact. Lungs and Airways: No pulmonary mass or consolidation. No abnormality of the central airways. Pleura: The pleural spaces are normal. Heart and Mediastinum: The visualized thyroid is normal in size and attenuation. No axillary or supraclavicular lymphadenopathy. No mediastinal, hilar or retrocrural lymphadenopathy. The heart and pericardium are within normal limits. The great vessels of the thorax are normal. Abdomen: Hepatic steatosis. Bones and Soft Tissues: Degenerative changes of the spine. IMPRESSION: 1. No evidence of central, lobar, or segmental pulmonary thromboembolic disease. Subsegmental branches not well evaluated due to respiratory motion artifact. 2. No pulmonary mass or consolidation. Electronically signed by: Jaden Urbina MD (03/19/2020 1:33 PM) [id number]
== END | disposition home or self-care (01) ==
LOC: CT 12:44
PROVIDERS: ATTEND Family Medicine
DX: R06.02 Shortness of breath (principal); R07.81 Pleurodynia; M51.36 Other intervertebral disc degeneration, lumbar region; K76.0 Fatty (change of) liver, not elsewhere classified; M47.814 Spondylosis without myelopathy or radiculopathy, thoracic region
CPT/HCPCS: 71275; Q9967

== ENCOUNTER → 2020-03-29 | Outpatient (CLI) | payer MEDICAID ==
[2020-03-06 19:24] VITALS: BP 115/72
[~2020-03-29] MED LIST changes: -CONTRAST GIVEN. MC PRN; -IOHEXOL 350 MG/ML 100 ML VIAL. IV ONE
--- NOTE | 2020-03-29 12:51 | RAD ---
EXAM: Nuclear gastric emptying scan. HISTORY: Pain. COMPARISON: None. TECHNIQUE: Serial static images were obtained over the stomach following oral administration of 2 mCi of 99m-Tc sulfur colloid in an egg based meal. FINDINGS: The stomach empties into the small bowel without evidence of reflux in the area of the esophagus. The estimated time for half emptying of gastric contents, i.e. 'gastric emptying time' is 71 minutes (normal is 66 +/- 22 minutes). There is 44 percent retained tracer activity within the stomach at one hour, 25 percent retained tracer activity within the stomach at 2 hours, 12 percent retained tracer activity within stomach at 3 hours and 0 percent retained tracer activity within stomach at 4 hours. IMPRESSION: Normal gastric emptying scan. Electronically signed by: Arlette Genao MD (03/29/2020 12:49 PM) [id number]
== END | disposition home or self-care (01) ==
LOC: NM 07:57
PROVIDERS: ATTEND Internal Medicine Gastroenterology
DX: R10.13 Epigastric pain (principal); R07.9 Chest pain, unspecified
CPT/HCPCS: 78264; A9541

== ENCOUNTER 2020-04-03 22:51 | Emergency (ER) | payer MEDICAID ==
[~2020-04-03] VITALS: Ht 170.2 cm; Wt 108.0 kg
[2020-04-03 23:21] LABS: BILIRUBIN,URINE NEGATIVE (NEG); CLARITY,URINE CLEAR; COLOR,URINE YELLOW; NITRITE,URINE NEGATIVE (NEG); PROTEIN,URINE NEGATIVE (NEG-TRACE); UROBILINOGEN,URINE 0.2 mg/dL (0.2 mg/dL)
[2020-04-03 23:26] LABS: SQUAMOUS EPITHELIAL CELL,UR MANY /LPF
[2020-04-03] MEDS ORDERED: KETOROLAC 15 MG/ML VIAL. IVP ONE (23:30)
[2020-04-03 23:31] LABS: BACTERIA,URINE MODERATE /HPF (0-FEW)
[2020-04-03 23:32] LABS: WBC,URINE OCC /HPF (0-4)
--- NOTE | 2020-04-03 23:43 | PHYS DOC ---
Past Medical History Past Medical History: Diabetes-Type II, High Cholesterol, Hypertension (JESSI NÚÑEZ MD) Past Surgical History: , Hysterectomy (JESSI NÚÑEZ MD) Smoking Status: Never Smoker Alcohol Use: None Drug Use: None (JESSI NÚÑEZ MD) General Adult EDM: Chief Complaint: MULTIPLE COMPLAINTS HPI: HPI: Patient is a 49 year old female who presents with complaints of abdominal pain. Patient states that 2 days ago she began to have left lower quadrant abdominal pain that has persisted and is been consistently getting worse. Today she had 2 episodes of nausea and vomiting and reports black stool daily x1 for the last 2 days as well. Patient denied any fever or chills, describes the pain as constant, radiating up into the chest and back, worsening over time and pressure in nature. Patient denies any difficulty with urination, recent exposure to COVID-19, cough, cold, sore throat, change in urination. (JESSI NÚÑEZ MD) Review of Systems: Review of Systems: Constitutional: Denies fever or chills. [] Eyes: Denies change in visual acuity. [] HENT: Denies nasal congestion or sore throat. [] Respiratory: Denies cough or shortness of breath. [] Cardiovascular: Denies chest pain or edema. [] GI: See HPI : Denies dysuria. [] Musculoskeletal: Denies back pain or joint pain. [] Integument: Denies rash. [] Neurologic: Denies headache, focal weakness or sensory changes. [] Endocrine: Denies polyuria or polydipsia. [] Lymphatic: Denies swollen glands. [] Psychiatric: Denies depression or anxiety. [] (JESSI NÚÑEZ MD) Heart Score: Risk Factors: Risk Factors: DM, Current or recent (<one month) smoker, HTN, HLP, family history of CAD, obesity. Risk Scores: Score 0 - 3: 2.5% MACE over next 6 weeks - Discharge Home Score 4 - 6: 20.3% MACE over next 6 weeks - Admit for Clinical Observation Score 7 - 10: 72.7% MACE over next 6 weeks - Early Invasive Strategies (JESSI NÚÑEZ MD) Current Medications: Current Medications Medications (Trade) Dose Ordered Sig/Asha Start Time Stop Time Status Last Admin Dose Admin Ketorolac Tromethamine (Toradol 15mg Vial) 15 mg 1X ONCE 04/03/20 23:30 04/03/20 23:32 DC Metoclopramide HCl (Reglan Vial) 10 mg 1X ONCE 04/03/20 23:45 04/03/20 23:46 Morphine Sulfate (Morphine Sulfate) 4 mg 1X ONCE 04/03/20 23:45 04/03/20 23:46 Pantoprazole Sodium (PROTONIX VIAL for IV PUSH) 80 mg 1X ONCE 04/03/20 23:45 04/03/20 23:46 Sodium Chloride 500 ml @ 500 mls/hr 1X ONCE 04/03/20 23:45 04/04/20 00:44 (JESSI NÚÑEZ MD) Allergies: Allergies: Allergies Coded Allergies Type Severity Reaction Last Updated Verified No Known Drug Allergies 12/28/19 No (JESSI NÚÑEZ MD) Physical Exam: PE: Constitutional: Well developed, well nourished, no acute distress, non-toxic appearance. [] HENT: Normocephalic, atraumatic, bilateral external ears normal, oropharynx moist, no oral exudates, nose normal. [] Eyes: PERRLA, EOMI, conjunctiva normal, no discharge. [] Neck: Normal range of motion, no tenderness, supple, no stridor. [] Cardiovascular:Heart rate regular rhythm, no murmur [] Lungs & Thorax: Bilateral breath sounds clear to auscultation [] Abdomen: Soft, diffusely tender with voluntary guarding in the left lower quadrant, questionable rebound, no guarding, no hepatosplenomegaly or mass, mild distention, good bowel sounds.. [] Rectal: Patient refused Skin: Warm, dry, no erythema, no rash. [] Back: No tenderness, left CVA tenderness. [] Extremities: No tenderness, no cyanosis, no clubbing, ROM intact, trace edema symmetric bilaterally [] Neurologic: Alert and oriented X 3, normal motor function, normal sensory function, no focal deficits noted. [] Psychologic: Affect normal, judgement normal, mood normal. [] (JESSI NÚÑEZ MD) Current Patient Data: Labs: Laboratory Tests Test 04/03/20 23:15 Urine Collection Type Unknown Urine Color Yellow Urine Clarity Clear Urine pH 6.0 (<5.0-8.0) Urine Specific [place] >=1.030 (1.000-1.030) Urine Protein Negative mg/dL (NEG-TRACE) Urine Glucose (UA) >=1000 mg/dL (NEG) Urine Ketones (Stick) Negative mg/dL (NEG) Urine Blood Small (NEG) Urine Nitrite Negative (NEG) Urine Bilirubin Negative (NEG) Urine Urobilinogen Dipstick 0.2 mg/dL (0.2 mg/dL) Urine Leukocyte Esterase Negative (NEG) Urine RBC 6-10 /HPF (0-2) Urine WBC Occ /HPF (0-4) Urine Squamous Epithelial Cells Many /LPF Urine Bacteria Moderate /HPF (0-FEW) Urine Mucus Mod /LPF (JESSI NÚÑEZ MD) Labs: Laboratory Tests Test 04/03/20 23:15 04/03/20 23:37 Urine Collection Type Unknown Urine Color Yellow Urine Clarity Clear Urine pH 6.0 Urine Specific [place] >=1.030 Urine Protein Negative mg/dL Urine Glucose (UA) >=1000 mg/dL Urine Ketones (Stick) Negative mg/dL Urine Blood Small Urine Nitrite Negative Urine Bilirubin Negative Urine Urobilinogen Dipstick 0.2 mg/dL Urine Leukocyte Esterase Negative Urine RBC 6-10 /HPF Urine WBC Occ /HPF Urine Squamous Epithelial Cells Many /LPF Urine Bacteria Moderate /HPF Urine Mucus Mod /LPF White Blood Count 9.0 x10^3/uL Red Blood Count 4.70 x10^6/uL Hemoglobin 13.1 g/dL Hematocrit 39.4 % Mean Corpuscular Volume 84 fL Mean Corpuscular Hemoglobin 28 pg Mean Corpuscular Hemoglobin Concent 33 g/dL Red Cell Distribution Width 17.6 % Platelet Count 318 x10^3/uL Neutrophils (%) (Auto) 64 % Lymphocytes (%) (Auto) 28 % Monocytes (%) (Auto) 7 % Eosinophils (%) (Auto) 1 % Basophils (%) (Auto) 1 % Neutrophils # (Auto) 5.8 x10^3/uL Lymphocytes # (Auto) 2.5 x10^3/uL Monocytes # (Auto) 0.6 x10^3/uL Eosinophils # (Auto) 0.1 x10^3/uL Basophils # (Auto) 0.1 x10^3/uL Prothrombin Time 11.6 SEC Prothromb Time International Ratio 0.9 Activated Partial Thromboplast Time 34 SEC Sodium Level 138 mmol/L Potassium Level 3.6 mmol/L Chloride Level 102 mmol/L Carbon Dioxide Level 29 mmol/L Anion Gap 7 Blood Urea Nitrogen 12 mg/dL Creatinine 0.8 mg/dL Estimated GFR (Cockcroft-Gault) 75.9 BUN/Creatinine Ratio 15 Glucose Level 125 mg/dL Calcium Level 9.7 mg/dL Total Bilirubin 0.4 mg/dL Aspartate Amino Transf (AST/SGOT) 55 U/L Alanine Aminotransferase (ALT/SGPT) 111 U/L Alkaline Phosphatase 69 U/L Troponin I Quantitative < 0.017 ng/mL Total Protein 7.8 g/dL Albumin 4.0 g/dL Albumin/Globulin Ratio 1.1 Lipase 188 U/L Current Medications Medications (Trade) Dose Ordered Sig/Asha Route PRN Reason Start Time Stop Time Status Last Admin Dose Admin Sodium Chloride 500 ml @ 500 mls/hr 1X ONCE IV 04/03/20 23:45 04/04/20 00:44 DC 04/03/20 23:48 Ketorolac Tromethamine (Toradol 15mg Vial) 15 mg 1X ONCE IVP 04/03/20 23:30 04/03/20 23:32 DC Metoclopramide HCl (Reglan Vial) 10 mg 1X ONCE IVP 04/03/20 23:45 04/03/20 23:38 DC Morphine Sulfate (Morphine Sulfate) 4 mg 1X ONCE IV 04/03/20 23:45 04/03/20 23:46 DC 04/03/20 23:47 Pantoprazole Sodium (PROTONIX VIAL for IV PUSH) 80 mg 1X ONCE IVP 04/03/20 23:45 04/03/20 23:46 DC 04/03/20 23:47 Ondansetron HCl (Zofran) 4 mg 1X ONCE IVP 04/03/20 23:45 04/03/20 23:46 DC 04/03/20 23:47 Iohexol (Omnipaque 300 Mg/ml) 75 ml 1X ONCE IV 04/04/20 00:30 04/04/20 00:31 DC 04/04/20 00:11 Info (CONTRAST GIVEN -- Rx MONITORING) 1 each PRN DAILY PRN MC SEE COMMENTS 04/03/20 23:45 04/04/20 01:45 DC Vital Signs: Vital Signs Date Time Temp Pulse Resp B/P (MAP) Pulse Ox O2 Delivery O2 Flow Rate FiO2 8/5/20 01:28 76 23 107/60 (76) 96 Room Air 04/04/20 01:17 76 20 97/58 (71) 96 Room Air 04/04/20 00:47 76 20 104/56 (72) 98 Room Air 04/04/20 00:17 84 132/84 (100) 98 Room Air 04/03/20 23:47 78 141/81 (101) 98 Room Air 04/03/20 23:47 16 98 Room Air 04/03/20 23:05 97.8 101 16 144/88 (106) 96 Room Air 97.8 (REGGIE HALL MD) EKG: EKG: [] (JESSI NÚÑEZ MD) EKG: EKG interpreted by me normal sinus rhythm with a rate of 90 normal axis normal intervals T wave inversions in lead III and aVF (REGGIE HALL MD) Radiology/Procedures: Radiology/Procedures: [] (JESSI NÚÑEZ MD) Radiology/Procedures: [place] [address] IMAGING REPORT Signed PATIENT: DIANE LEWIS ACCOUNT: [id number] : 1970 LOCATION: ER AGE: 49 SEX: F EXAM STATUS: REG ER ORD. PHYSICIAN: JESSI NÚÑEZ MD REASON: Chest pain PROCEDURE: CHEST PA & LATERAL INDICATION: Reason: Chest pain / Spl. Instructions: / History: COMPARISON: March 06, 2020 FINDINGS: 2 view of chest obtained. Enlarged cardiac silhouette. Degenerative changes the spine with osteophyte formation. Appearance the lungs is similar to prior without focal airspace consolidation. IMPRESSION: * No focal airspace consolidation. Electronically signed by: Hanna Lindquist MD (04/04/2020 12:16 AM) [id number] DICTATED and SIGNED BY: HANNA LINDQUIST MD DATE: 04/04/[address] [id number] IMAGING REPORT Signed PATIENT: DIANE LEWIS ACCOUNT: [id number] : 1970 LOCATION: ER AGE: 49 SEX: F EXAM STATUS: REG ER ORD. PHYSICIAN: JESSI NÚÑEZ MD REASON: LLQ Abd pain PROCEDURE: CT ABD PELV W/ IV CONTRST ONLY INDICATION: Reason: LLQ Abd pain / Spl. Instructions: / History: COMPARISON: None. TECHNIQUE: Axial CT images obtained through the abdomen and pelvis with contrast. One or more of the following individualized dose reduction techniques were utilized for this examination: 1. Automated exposure control; 2. Adjustment of the mA and/or kV according to patient size; 3. Use of iterative reconstruction technique. FINDINGS: Abdominal aorta is not aneurysmal. Liver is low density. Gallbladder somewhat distended with a stone seen within. No peripancreatic fluid collection. Low-density lesion at the spleen measuring approximately 37 mm. No hydronephrosis. Urinary bladder is partially distended. No dilated loops of bowel to suggest obstruction. Portion of the bowel at the hepatic flexure is not distended with some prominence the wall although this could be secondary to a region of contraction. Appendix not well seen. Fat-containing umbilical hernia. Degenerative changes the spine with multilevel central canal and neural foraminal stenosis. There are some sclerotic foci in the osseous structures including in the left femoral head measuring up to 8 mm. IMPRESSION: * No evidence of bowel obstruction. * No hydronephrosis. * Liver is low density. Nonspecific but can be seen with fatty infiltration. * Low-density lesion of the spleen is again seen and appears similar to prior. * There are some scattered sclerotic lesions which is a common finding and most commonly from bone islands unless the patient has history of neoplasm. * The gallbladder is distended with gallstones seen. Electronically signed by: Hanna Lindqusit MD (04/04/2020 12:35 AM) [id number] DICTATED and SIGNED BY: HANNA LINDQUIST MD DATE: 04/04/20 0035 (REGGIE HALL MD) Course & Med Decision Making: Course & Med Decision Making Pertinent Labs and Imaging studies reviewed. (See chart for details) 2341-patient was initially seen and examined by me. I will turn the case over to Dr. Reggie Hall. [] (JESSI NÚÑEZ MD) Course & Med Decision Making Reassessed at 1 AM. Abdomen is soft with mild left upper quadrant tenderness. Patient feels significantly better. Patient be stable for discharge and outpatient follow-up. I received signout from outgoing physician regarding this patient. Patient has left-sided abdominal pain. Patient evidently declined rectal exam for the prior physician. Patient's abdominal exam is soft without guarding or rebound. Patient feels better after treatment in the ER. Work-up is reassuring. Patient most likely has gastritis. Patient was placed on PPI. (REGGIE HALL MD) Dragon Disclaimer: Dragon Disclaimer: This electronic medical record was generated, in whole or in part, using a voice recognition dictation system. (JESSI NÚÑEZ MD) Departure Departure Impression: Primary Impression: LUQ abdominal pain Additional Impressions: GERD (gastroesophageal reflux disease) Gastritis Disposition: 01 HOME, SELF-CARE Condition: STABLE Referrals: CARMEN BARCENAS MD (PCP) 2-3 days Patient Instructions: Abdominal Pain, Gastritis, Adult Additional Instructions: EMERGENCY DEPARTMENT GENERAL DISCHARGE INSTRUCTIONS THANK YOU for coming to [facility] Emergency Department (ED) today and trusting us with your care. We trust that you had a positive experience in our Emergency Department. If you wish to speak to the department Management you can contact the upholstery department supervisor at . YOUR FOLLOW UP INSTRUCTIONS ARE FOLLOWS: Do you have a private doctor? If you do not have a private doctor, please ask for a resource list of physicians or clinics that may be able to assist you with follow up care. The Emergency Physician has interpreted your x-rays. The X-ray specialist will also review them. If there is a change in the findings you will be notified in 48 hours when at all possible. A lab test or lab culture may have been done, your results will be reviewed and you will be notified if you need a change in treatment. ADDITIONAL INSTRUCTIONS AND INFORMATION Your care today has been supervised by a physician who is specially trained in emergency care. Many problems require more than one evaluation for a complete diagnosis and treatment. We recommend that you schedule your follow up appointment as recommended to ensure complete treatment of your illness or injury. If you are unable to obtain follow up care and continue to have a problem, or if your condition worsens we recommend that you return to the ED. We are not able to safely determine your condition over the phone nor are we able to give sound medical advice over the phone. For these safety reasons, if you call for medical advice we will ask you to come to the ED for further evaluation If you have any questions regarding these discharge instructions please call the ED at . SAFETY INFORMATION In the interest of safety, wellness, and injury prevention; we encourage you to wear your seatbelt, if you smoke; quit smoking, and we encourage your family to use protective helmet for bicycling and other sporting events that present an increased risk for head injury. IF YOUR SYMPTOMS WORSEN OR NEW SYMPTOMS DEVELOP, OR YOU HAVE CONCERNS ABOUT YOUR CONDITION; OR IF YOUR CONDITION WORSENS WHILE YOU ARE WAITING FOR YOUR FOLLOW UP APPOINTMENT; EITHER CONTACT YOUR PRIMARY CARE DOCTOR, THE PHYSICIAN WHOSE NAME AND NUMBER YOU WERE GIVEN, OR RETURN TO THE ED IMMEDIATELY. Scripts Ondansetron Hcl (ZOFRAN) 4 Mg Tablet 1 TAB PO PRN Q6-8HRS for nausea, #12 TAB Prov: REGGIE HALL MD 04/04/20 Esomeprazole Magnesium (NEXIUM CAPSULE) 40 Mg Capsule.dr 1 CAP PO DAILY, #30 CAP 5 Refills Prov: REGGIE HALL MD 04/04/20 Justicifation of Admission Dx: Justifications for Admission: Justification of Admission Dx: No (JESSI NÚÑEZ MD) Justification of Admission Dx: N/A (REGGIE HALL MD) JESSI NÚÑEZ MD Apr 03, 2020 23:43 REGGIE HALL MD Apr 03, 2020 23:58
[2020-04-03 23:45] LABS: BASO # 0.1 x10^3/uL (0.0-0.2); BASO % 1 % (0-3); EOS # 0.1 x10^3/uL (0.0-0.7); EOS % 1 % (0-3); HEMATOCRIT 39.4 % (36.0-47.0); HEMOGLOBIN 13.1 g/dL (12.0-15.5); LYMPH # 2.5 x10^3/uL (1.0-4.8); LYMPH % 28 % (24-48); MEAN CORPUSCULAR HEMOGLOBIN 28 pg (25-35); MEAN CORPUSCULAR HGB CONC 33 g/dL (31-37); MEAN CORPUSCULAR VOLUME 84 fL (79-100); MONO # 0.6 x10^3/uL (0.0-1.1); MONO % 7 % (0-9); NEUT # 5.8 x10^3/uL (1.8-7.7); NEUT % 64 % (31-73); PLATELET COUNT 318 x10^3/uL (140-400); RED CELL DISTRIBUTION WIDTH 17.6 % (11.5-14.5)
[2020-04-03] MEDS ORDERED: CONTRAST GIVEN. MC PRN (23:45)
[2020-04-03] MEDS ORDERED: METOCLOPRAMIDE HCL 10 MG/2 ML VIAL. IVP ONE (23:45)
[2020-04-03] MEDS: MORPHINE SULFATE 4 MG/ML VIAL. IV ONE (23:47)
[2020-04-03] MEDS: PANTOPRAZOLE IV PUSH 40 MG VIAL. IVP ONE (23:47)
[2020-04-03] MEDS: ONDANSETRON PF 4 MG/2 ML VIAL. IVP ONE (23:47)
[2020-04-03] MEDS: IV NORMAL SALINE 500ML BAG 500 ML IV ONE (23:48)
[2020-04-03 23:53] LABS: CALCIUM 9.7 mg/dL (8.5-10.1); CREATININE 0.8 mg/dL (0.6-1.0); GFR 75.9; POTASSIUM 3.6 mmol/L (3.5-5.1)
[2020-04-03 23:59] LABS: ALBUMIN/GLOBULIN RATIO 1.1 (1.0-1.7); TOTAL BILIRUBIN 0.4 mg/dL (0.2-1.0); TOTAL PROTEIN 7.8 g/dL (6.4-8.2)
[2020-04-04] LABS: PROTHROMBIN TIME PATIENT 11.6 SEC (11.7-14.0)
[2020-04-04] MEDS: IOHEXOL 300 MG/ML 100ML VIAL. IV ONE (00:11)
--- NOTE | 2020-04-04 00:19 | RAD ---
INDICATION: Reason: Chest pain / Spl. Instructions: / History: COMPARISON: March 06, 2020 FINDINGS: 2 view of chest obtained. Enlarged cardiac silhouette. Degenerative changes the spine with osteophyte formation. Appearance the lungs is similar to prior without focal airspace consolidation. IMPRESSION: * No focal airspace consolidation. Electronically signed by: Silver Hameed MD (04/04/2020 12:16 AM) [id number]
--- NOTE | 2020-04-04 00:38 | RAD ---
INDICATION: Reason: LLQ Abd pain / Spl. Instructions: / History: COMPARISON: None. TECHNIQUE: Axial CT images obtained through the abdomen and pelvis with contrast. One or more of the following individualized dose reduction techniques were utilized for this examination: 1. Automated exposure control; 2. Adjustment of the mA and/or kV according to patient size; 3. Use of iterative reconstruction technique. FINDINGS: Abdominal aorta is not aneurysmal. Liver is low density. Gallbladder somewhat distended with a stone seen within. No peripancreatic fluid collection. Low-density lesion at the spleen measuring approximately 37 mm. No hydronephrosis. Urinary bladder is partially distended. No dilated loops of bowel to suggest obstruction. Portion of the bowel at the hepatic flexure is not distended with some prominence the wall although this could be secondary to a region of contraction. Appendix not well seen. Fat-containing umbilical hernia. Degenerative changes the spine with multilevel central canal and neural foraminal stenosis. There are some sclerotic foci in the osseous structures including in the left femoral head measuring up to 8 mm. IMPRESSION: * No evidence of bowel obstruction. * No hydronephrosis. * Liver is low density. Nonspecific but can be seen with fatty infiltration. * Low-density lesion of the spleen is again seen and appears similar to prior. * There are some scattered sclerotic lesions which is a common finding and most commonly from bone islands unless the patient has history of neoplasm. * The gallbladder is distended with gallstones seen. Electronically signed by: Silver Hameed MD (04/04/2020 12:35 AM) [id number]
[2020-04-04] MEDS ORDERED: ONDA4TAB7 PO (01:03)
[2020-04-04] MEDS ORDERED: ESOM40CA PO (01:03)
[2020-04-04 01:28] VITALS: BP 107/60
--- NOTE | 2020-04-04 14:33 | EKG ---
[facility] [address] [place] [address] Test Date: 2020-04-03 Test Time: 23:53:25 Pat Name: DIANE LEWIS Department: Room: Gender: F Clerical Associate: : 1970 Requested By: JESSI NÚÑEZ Order Number: [id number] Reading MD: Measurements Intervals [place] Rate: 90 P: 33 VA: 148 QRS: 11 QRSD: 86 T: -3 QT: 374 QTc: 462 Interpretive Statements SINUS RHYTHM QRS(T) CONTOUR ABNORMALITY CONSIDER ANTEROLATERAL MYOCARDIAL DAMAGE POSSIBLY ABNORMAL ECG RI6.01 No previous ECG available for comparison
== END 2020-04-04 01:35 | disposition home or self-care (01) ==
LOC: ER 22:51
DX: K21.9 Gastro-esophageal reflux disease without esophagitis (principal); K29.70 Gastritis, unspecified, without bleeding; R10.32 Left lower quadrant pain; E11.9 Type 2 diabetes mellitus without complications; E78.00 Pure hypercholesterolemia, unspecified; I10 Essential (primary) hypertension; Z90.710 Acquired absence of both cervix and uterus; Z98.890 Other specified postprocedural states; Z79.899 Other long term (current) drug therapy
CPT/HCPCS: 36415; 71046; 74177; 80053; 81001; 83690; 84484; 85025; 85610; 85730; 87086; 93005; 96361; 96374; 96375; 99285; C9113; J2270; J2405; J7040; Q9967

== ENCOUNTER → 2020-04-18 | Outpatient (CLI) | payer MEDICAID ==
[2020-04-04 01:28] VITALS: BP 107/60
[~2020-04-18] MED LIST changes: +ESOM40CA PO; +NORMAL SALINE IV ONE; +SINCALIDE IV ONE
--- NOTE | 2020-04-18 10:03 | RAD ---
EXAM: RIGHT UPPER QUADRANT ULTRASOUND. HISTORY: Right upper quadrant pain. COMPARISON: 04/04/2020. FINDINGS: Sonographic evaluation of the right upper quadrant was performed. Hyperechogenicity of the hepatic parenchyma indicates severe diffuse hepatic steatosis. The liver is enlarged spanning 23.5 cm. There are no focal lesions. The gallbladder is unremarkable without evidence of stones, wall thickening or pericholecystic fluid. The gallstone noted on CT is not appreciated currently. There is no sonographic Villareal sign. The common duct measures 4.5 mm. The visualized portions of the head of the pancreas reveal no abnormality. The right kidney measures 12.2 cm. Cortical thickness and echogenicity are preserved. There is no hydronephrosis. The visualized portions of the abdominal aorta and inferior vena cava are grossly patent and normal in caliber. IMPRESSION: 1. Severe diffuse hepatic steatosis. Moderate hepatomegaly. 2. The gallstone noted on CT is not appreciated currently. No evidence of acute cholecystitis. Electronically signed by: Jesus Calvo MD (04/18/2020 10:00 AM) [id number]
--- NOTE | 2020-04-19 10:09 | RAD ---
EXAM: Nuclear hepatobiliary scan. HISTORY: Pain. TECHNIQUE: Following intravenous administration of 5.5 mCi Tc 99m Choletec, anterior images of the abdomen were obtained at five minute intervals through one hour. Subsequently, 2.21 mcg CCK was administered and additional images to assess gallbladder ejection fraction were obtained. FINDINGS: There is prompt radiotracer uptake by the liver. No focal defect is seen. There is normal excretion into the biliary tree. The gallbladder is visualized within 5 minutes and there is free flow into the duodenum. The gallbladder ejection fraction is 60 percent. IMPRESSION: Normal radionuclide biliary scan. Electronically signed by: Arlette Genao MD (04/19/2020 10:07 AM) [facility]
== END | disposition home or self-care (01) ==
LOC: US 10:41
PROVIDERS: ATTEND Internal Medicine Gastroenterology
DX: K76.0 Fatty (change of) liver, not elsewhere classified (principal); R16.0 Hepatomegaly, not elsewhere classified
CPT/HCPCS: 76705; 78227; A9537; J2805

== ENCOUNTER → 2020-05-10 | Outpatient (CLI) | payer MEDICAID ==
[~2020-05-10] MED LIST changes: -NORMAL SALINE IV ONE; -SINCALIDE IV ONE
--- NOTE | 2020-05-10 17:07 | KCIC ---
EXAM: Thoracic spine, 3 views; lumbar spine, 3 views. HISTORY: Acute pain. COMPARISON: None. FINDINGS: Thoracic spine: 3 views of the thoracic spine are obtained. There is mild S-shaped thoracic curvature. There is no significant listhesis. The vertebral bodies are normal in height and the disc spaces are preserved. Lumbar spine: 3 views of the lumbar spine are obtained. There is a transitional lumbosacral segment with 6 nonrib-bearing vertebrae. There is degenerative endplate remodeling at multiple levels. There is facet arthropathy at the lumbosacral junction. IMPRESSION: 1. Degenerative change primarily at the lower lumbar levels. 2. No acute osseous finding. Electronically signed by: Arlette Genao MD (05/10/2020 5:04 PM) [id number]
== END | disposition home or self-care (01) ==
LOC: KCIC 13:57
PROVIDERS: ATTEND Family Medicine
DX: M47.817 Spondylosis without myelopathy or radiculopathy, lumbosacral region (principal); M43.8X4 Other specified deforming dorsopathies, thoracic region; M54.42 Lumbago with sciatica, left side; M54.6 Pain in thoracic spine
CPT/HCPCS: 72072; 72100

== ENCOUNTER 2020-07-05 20:32 | Inpatient (IN) | payer MEDICAID ==
[~2020-07-05] VITALS: Ht 167.6 cm; Wt 112.6 kg
--- NOTE | 2020-07-05 21:06 | PHYS DOC ---
Past Medical History Past Medical History: Diabetes-Type II, High Cholesterol, Hypertension Past Surgical History: , Hysterectomy Smoking Status: Never Smoker Alcohol Use: None Drug Use: None General Adult EDM: Chief Complaint: SYNCOPE HPI: HPI: Patient is a 50 year old female who arrives with a chief complaint of altered mental status. History, physical and review of systems are all limited due to altered mental status. Patient's son is here and states that around 3:00 she had a 10 to 15-minute episode of altered mental status and decreased respon siveness. Then patient had another episode that began about 10 minutes prior to arrival. Patient will not answer questions but son denies any recent illnesses. Review of Systems: Review of Systems: Review of systems is unobtainable due to altered mental status Heart Score: Risk Factors: Risk Factors: DM, Current or recent (<one month) smoker, HTN, HLP, family history of CAD, obesity. Risk Scores: Score 0 - 3: 2.5% MACE over next 6 weeks - Discharge Home Score 4 - 6: 20.3% MACE over next 6 weeks - Admit for Clinical Observation Score 7 - 10: 72.7% MACE over next 6 weeks - Early Invasive Strategies Current Medications: Current Medications Potassium Chloride (Klor-Con) 40 meq 1X ONCE PO Last administered on 07/05/20at 22:43; Start 07/05/20 at 22:45; Stop 07/05/20 at 22:46; Status DC Aspirin (Aspirin Chewable) 324 mg 1X ONCE PO ; Start 07/05/20 at 23:30; Stop 07/05/20 at 23:31 Ondansetron HCl (Zofran) 4 mg PRN Q8HRS PRN IV NAUSEA/VOMITING 1ST CHOICE; Start 07/05/20 at 23:00; Stop 07/06/20 at 22:59 Active Scripts Active Zofran (Ondansetron Hcl) 4 Mg Tablet 1 Tab PO PRN Q6-8HRS Nexium Capsule (Esomeprazole Magnesium) 40 Mg Capsule.dr 1 Cap PO DAILY Pepcid (Famotidine) 20 Mg Tablet 20 Mg PO HS Zofran (Ondansetron Hcl) 4 Mg Tablet 1 Tab PO PRN Q6-8HRS Reported Bydureon Pen (Exenatide Microspheres) 2 Mg/0.65 Ml Pen.injctr 2 Mg SQ WEEKLY Gabapentin 600 Mg Tablet 100 Mg PO TID Omeprazole 40 Mg Capsule.dr 40 Mg PO DAILY Losartan Potassium 100 Mg Tablet 100 Mg PO DAILY Hydrochlorothiazide Capsule (Hydrochlorothiazide) 12.5 Mg Capsule 12.5 Mg PO DAILY Glucophage (Metformin Hcl) 1,000 Mg Tablet 1,000 Mg PO BIDWMEALS Atorvastatin Calcium 40 Mg Tablet 40 Mg PO DAILY Novolog Flexpen (Insulin Aspart) 100 Unit/1 Ml Insuln.pen 8 Units SQ TIDWMEALS Allergies: Allergies: Allergies Coded Allergies Type Severity Reaction Last Updated Verified No Known Drug Allergies 12/28/19 No Physical Exam: PE: Constitutional: Well developed, well nourished, no acute distress, non-toxic appearance. [] HENT: Normocephalic, atraumatic, bilateral external ears normal, nose normal. [] Eyes: PERRLA, EOMI, conjunctiva normal, no discharge. [] Neck: Normal range of motion, no tenderness, supple, no stridor. [] Cardiovascular:Heart rate regular rhythm, peripheral pulses are intact cap refill is brisk Lungs & Thorax: Bilateral breath sounds clear to auscultation [] Abdomen: Bowel sounds normal, soft, no tenderness, no masses, no pulsatile masses. [] Skin: Warm, dry, no erythema, no rash. [] Back: No tenderness, no CVA tenderness. [] Extremities: No tenderness, no cyanosis, no clubbing, ROM intact, no edema. [] Neurologic: Patient does not respond to verbal stimuli. Patient will move all extremities. When her hand is placed above her head it does not fall with a full posterior gravity onto her head. Psychologic: Unable to assess Current Patient Data: Labs: Laboratory Tests Test 07/05/20 20:40 07/05/20 20:58 07/05/20 21:30 Glucose (Fingerstick) 144 mg/dL Urine Collection Type U cath Urine Color Yellow Urine Clarity Clear Urine pH 6.0 Urine Specific [place] 1.025 Urine Protein Negative mg/dL Urine Glucose (UA) >=1000 mg/dL Urine Ketones (Stick) Negative mg/dL Urine Blood Negative Urine Nitrite Negative Urine Bilirubin Negative Urine Urobilinogen Dipstick 0.2 mg/dL Urine Leukocyte Esterase Negative Urine RBC 0 /HPF Urine WBC Occ /HPF Urine Squamous Epithelial Cells Mod /LPF Urine Bacteria 0 /HPF Urine Mucus Mod /LPF Urine Opiates Screen Neg Urine Methadone Screen Neg Urine Barbiturates Neg Urine Phencyclidine Screen Neg Urine Amphetamine/Methamphetamine Neg Urine Benzodiazepines Screen Neg Urine Cocaine Screen Neg Urine Cannabinoids Screen Neg Urine Ethyl Alcohol Neg White Blood Count 8.7 x10^3/uL Red Blood Count 4.42 x10^6/uL Hemoglobin 12.4 g/dL Hematocrit 37.2 % Mean Corpuscular Volume 84 fL Mean Corpuscular Hemoglobin 28 pg Mean Corpuscular Hemoglobin Concent 33 g/dL Red Cell Distribution Width 16.9 % Platelet Count 264 x10^3/uL Neutrophils (%) (Auto) 60 % Lymphocytes (%) (Auto) 32 % Monocytes (%) (Auto) 7 % Eosinophils (%) (Auto) 1 % Basophils (%) (Auto) 1 % Neutrophils # (Auto) 5.2 x10^3/uL Lymphocytes # (Auto) 2.8 x10^3/uL Monocytes # (Auto) 0.6 x10^3/uL Eosinophils # (Auto) 0.1 x10^3/uL Basophils # (Auto) 0.1 x10^3/uL Prothrombin Time 11.9 SEC Prothromb Time International Ratio 0.9 Activated Partial Thromboplast Time 34 SEC Sodium Level 144 mmol/L Potassium Level 3.1 mmol/L Chloride Level 105 mmol/L Carbon Dioxide Level 29 mmol/L Anion Gap 10 Blood Urea Nitrogen 10 mg/dL Creatinine 0.8 mg/dL Estimated GFR (Cockcroft-Gault) 75.6 BUN/Creatinine Ratio 13 Glucose Level 148 mg/dL Calcium Level 9.7 mg/dL Magnesium Level 1.8 mg/dL Total Bilirubin 0.3 mg/dL Aspartate Amino Transf (AST/SGOT) 39 U/L Alanine Aminotransferase (ALT/SGPT) 82 U/L Alkaline Phosphatase 64 U/L Troponin I Quantitative < 0.017 ng/mL Total Protein 7.3 g/dL Albumin 3.8 g/dL Albumin/Globulin Ratio 1.1 Ethyl Alcohol Level < 10 mg/dL Current Medications Medications (Trade) Dose Ordered Sig/Asha Route PRN Reason Start Time Stop Time Status Last Admin Dose Admin Potassium Chloride (Klor-Con) 40 meq 1X ONCE PO 07/05/20 22:45 07/05/20 22:46 DC 07/05/20 22:43 Aspirin (Aspirin Chewable) 324 mg 1X ONCE PO 07/05/20 23:30 07/05/20 23:31 Ondansetron HCl (Zofran) 4 mg PRN Q8HRS PRN IV NAUSEA/VOMITING 1ST CHOICE 07/05/20 23:00 07/06/20 22:59 Laboratory Tests Test 07/05/20 20:40 Glucose (Fingerstick) 144 mg/dL (70-99) H Vital Signs: Vital Signs Date Time Temp Pulse Resp B/P (MAP) Pulse Ox O2 Delivery O2 Flow Rate FiO2 07/05/20 20:32 98.1 76 18 160/80 (106) 100 Room Air 98.1 EKG: EKG: EKG interpreted by me normal sinus rhythm with rate 81 normal axis normal intervals nonspecific ST changes [] Radiology/Procedures: Radiology/Procedures: [][facility] [address] [place] [address] IMAGING REPORT Signed PATIENT: DIANE MONZON ACCOUNT: [id number] : 1970 LOCATION: ER AGE: 50 SEX: F EXAM STATUS: REG ER ORD. PHYSICIAN: JULIEN HALL MD REASON: ALTERED MENTAL STATUS PROCEDURE: CT HEAD WO CONTRAST CT HEAD INDICATION: Altered mental status COMPARISON: 04/09/2019. Exposure: One or more of the following individualized dose reduction techniques were utilized for this examination: 1. Automated exposure control 2. Adjustment of the mA and/or kV according to patient size 3. Use of iterative reconstruction technique TECHNIQUE: 5 mm contiguous axial images were obtained from the skull base to the vertex in both bone and soft tissue algorithm. FINDINGS: No abnormal attenuation within the brain parenchyma. No evidence of acute intracranial hemorrhage. No extra-axial fluid collections. No mass effect or midline shift. Ventricular size is appropriate. Basal cisterns are patent. No fractures identified.Chao-white differentiation is preserved.Globes and orbits are within normal limits. Paranasal sinuses and mastoid air cells are clear. IMPRESSION: No acute intracranial findings. Electronically signed by: Rancho Nielsen MD (07/05/2020 9:33 PM) [id number] DICTATED and SIGNED BY: RANCHO NIELSEN MD DATE: 07/05/202132 [facility] [address] [place] [address] IMAGING REPORT Signed PATIENT: DIANE MONZON ACCOUNT: [id number] : 1970 LOCATION: ER AGE: 50 SEX: F EXAM STATUS: REG ER ORD. PHYSICIAN: JULIEN HALL MD REASON: ALTERED MENTAL STATUS PROCEDURE: PORTABLE CHEST 1V EXAM: CHEST 1 VIEW History: Altered mental status COMPARISON: 04/03/2020 TECHNIQUE: Single portable radiograph of the chest FINDINGS: The cardiac silhouette is unremarkable. The lungs are clear bilaterally. The costophrenic sulci are clear and well demarcated. IMPRESSION: No radiographic evidence of an acute cardiopulmonary process. Electronically signed by: Rancho Nielsen MD (07/05/2020 11:07 PM) [id number] DICTATED and SIGNED BY: RANCHO NIELSEN MD DATE: 07/05/207 Course & Med Decision Making: Course & Med Decision Making Pertinent Labs and Imaging studies reviewed. (See chart for details) [] 50-year-old female presents with 2 episodes of altered mental status today. Patient on my initial assessment was nonverbal and not following commands. Upon reassessment patient is back to her baseline and complains of a little bit of headache and chest pain. Patient's EKG and head CT are negative. Wonder if this is possibly a seizure with a postictal phase versus a cardiac episode. Patient was placed in the hospital admitted to Dr. Hameed with cardiac and neurology consult. Erika Disclaimer: Erika Disclaimer: This electronic medical record was generated, in whole or in part, using a voice recognition dictation system. Departure Departure Impression: Primary Impression: Altered mental status Additional Impression: Syncope Disposition: ADMITTED INPT THIS HOSP Admitting Physician: Дмитрий Hameed Condition: STABLE Referrals: CARMEN BARCENAS MD (PCP) JULIEN HALL MD Jul 05, 2020 21:06
[2020-07-05 21:08] LABS: BILIRUBIN,URINE NEGATIVE (NEG); CLARITY,URINE CLEAR; COLOR,URINE YELLOW; NITRITE,URINE NEGATIVE (NEG); PROTEIN,URINE NEGATIVE (NEG-TRACE); UROBILINOGEN,URINE 0.2 mg/dL (0.2 mg/dL)
[2020-07-05 21:14] LABS: BACTERIA,URINE 0 /HPF (0-FEW); RBC,URINE 0 /HPF (0-2); WBC,URINE OCC /HPF (0-4)
[2020-07-05 21:29] LABS: BARBITURATES NEG (NEG); BENZODIAZEPINES NEG (NEG); CANNABINOIDS NEG (NEG); COCAINE NEG (NEG); METHADONE NEG (NEG); OPIATES NEG (NEG); PHENCYCLIDINE NEG (NEG)
[2020-07-05 21:36] LABS: AMPHETAMINE/METHAMPHETAMINE NEG (NEG)
--- NOTE | 2020-07-05 21:36 | RAD ---
CT HEAD INDICATION: Altered mental status COMPARISON: 04/09/2019. Exposure: One or more of the following individualized dose reduction techniques were utilized for this examination: 1. Automated exposure control 2. Adjustment of the mA and/or kV according to patient size 3. Use of iterative reconstruction technique TECHNIQUE: 5 mm contiguous axial images were obtained from the skull base to the vertex in both bone and soft tissue algorithm. FINDINGS: No abnormal attenuation within the brain parenchyma. No evidence of acute intracranial hemorrhage. No extra-axial fluid collections. No mass effect or midline shift. Ventricular size is appropriate. Basal cisterns are patent. No fractures identified.Chao-white differentiation is preserved.Globes and orbits are within normal limits. Paranasal sinuses and mastoid air cells are clear. IMPRESSION: No acute intracranial findings. Electronically signed by: Rancho Nielsen MD (07/05/2020 9:33 PM) [id number]
[2020-07-05 21:38] LABS: BASO # 0.1 x10^3/uL (0.0-0.2); BASO % 1 % (0-3); EOS # 0.1 x10^3/uL (0.0-0.7); EOS % 1 % (0-3); HEMATOCRIT 37.2 % (36.0-47.0); HEMOGLOBIN 12.4 g/dL (12.0-15.5); LYMPH # 2.8 x10^3/uL (1.0-4.8); LYMPH % 32 % (24-48); MEAN CORPUSCULAR HEMOGLOBIN 28 pg (25-35); MEAN CORPUSCULAR HGB CONC 33 g/dL (31-37); MEAN CORPUSCULAR VOLUME 84 fL (79-100); MONO # 0.6 x10^3/uL (0.0-1.1); MONO % 7 % (0-9); NEUT # 5.2 x10^3/uL (1.8-7.7); NEUT % 60 % (31-73); PLATELET COUNT 264 x10^3/uL (140-400); RED BLOOD COUNT 4.42 x10^6/uL (3.50-5.40); RED CELL DISTRIBUTION WIDTH 16.9 % (11.5-14.5); WHITE BLOOD COUNT 8.7 x10^3/uL (4.0-11.0)
[2020-07-05 21:49] LABS: PROTHROMBIN TIME PATIENT 11.9 SEC (11.7-14.0)
[2020-07-05 21:51] LABS: CALCIUM 9.7 mg/dL (8.5-10.1); CREATININE 0.8 mg/dL (0.6-1.0); GFR 75.6; POTASSIUM 3.1 mmol/L (3.5-5.1)
[2020-07-05 21:59] LABS: ALBUMIN 3.8 g/dL (3.4-5.0); ALBUMIN/GLOBULIN RATIO 1.1 (1.0-1.7); MAGNESIUM 1.8 mg/dL (1.8-2.4); TOTAL BILIRUBIN 0.3 mg/dL (0.2-1.0); TOTAL PROTEIN 7.3 g/dL (6.4-8.2)
[2020-07-05] MEDS ORDERED: POTASSIUM CHLORIDE 20 MEQ TABLET.ER. PO ONE (22:45)
[2020-07-05] MEDS ORDERED: ONDANSETRON PF 4 MG/2 ML VIAL. IV PRN (23:00)
--- NOTE | 2020-07-05 23:10 | RAD ---
EXAM: CHEST 1 VIEW History: Altered mental status COMPARISON: 04/03/2020 TECHNIQUE: Single portable radiograph of the chest FINDINGS: The cardiac silhouette is unremarkable. The lungs are clear bilaterally. The costophrenic sulci are clear and well demarcated. IMPRESSION: No radiographic evidence of an acute cardiopulmonary process. Electronically signed by: Rancho Nielsen MD (07/05/2020 11:07 PM) [id number]
[2020-07-05] MEDS ORDERED: ASPIRIN CHEWABLE 81 MG TABLET. PO ONE (23:30)
[2020-07-05 23:35] VITALS: BP 145/85
[2020-07-05] MEDS ORDERED: CANA100T PO (23:55)
[2020-07-06] MEDS ORDERED: ACETAMINOPHEN 325 MG TABLET. PO PRN (00:30)
[2020-07-06] MEDS ORDERED: ONDANSETRON ODT 4 MG TAB.RAPDIS. PO PRN (00:45)
[2020-07-06] MEDS ORDERED: INSU100I13 SQ (02:41)
[2020-07-06 03:11] VITALS: BP 122/53
[2020-07-06 07:00] VITALS: BP 115/57
[2020-07-06] MEDS: PANTOPRAZOLE 40 MG TABLET.DR. PO SCH (07:21)
--- NOTE | 2020-07-06 08:26 | PDOC ---
Provider Note Date of Service: DATE: 07/06/20 TIME: 08:24 Provider Note [id number] Justifications for Admission Other Justification VICTORIANO LINDQUIST MD Jul 06, 2020 08:26
--- NOTE | 2020-07-06 08:28 | PDOC ---
Provider Note Date of Service: DATE: 07/06/20 TIME: 08:28 Provider Note last a1c 7 04/19 , bmp ok also Justifications for Admission Other Justification VICTORIANO LINDQUIST MD Jul 06, 2020 08:28
[2020-07-06] MEDS: hydroCHLOROthiazide 12.5 MG CAPSULE PO SCH (08:38)
[2020-07-06] MEDS: GABAPENTIN 100 MG CAPSULE. PO SCH ×3 (08:39→20:30)
[2020-07-06] MEDS: LOSARTAN POTASSIUM 50 MG TABLET. PO SCH (08:39)
[2020-07-06] MEDS: metFORMIN 500 MG TABLET PO SCH ×2 (08:39→16:58)
[2020-07-06] MEDS: INSULIN LISPRO 300 UNITS/3 ML VIAL. SQ SCH ×3 (08:42→16:55)
--- NOTE | 2020-07-06 08:47 | HP ---
ADMIT DATE: CHIEF COMPLAINT: Confusion, possible seizures. HISTORY OF PRESENT ILLNESS: A 50-year-old female with a history of diabetes and hypertension, followed in our office by Dr. Piper and Dr. Zimmer who had a couple of episodes of unresponsiveness with no actual seizure activity with no evidence of hypotension or hypoglycemia. CT scan of the head was clear. Lab work were all unremarkable and the patient is undergoing MRI of the head at this time after neurologic consultation will be obtained for possible seizure. secured entrance monitor showed no arrhythmia so far. PAST MEDICAL HISTORY: MEDICATIONS: Listed per the chart. ALLERGIES: No allergies are known. SOCIAL HISTORY: Unknown at this time. FAMILY HISTORY: Unremarkable. REVIEW OF SYSTEMS: No other problems. OBJECTIVE: ENT: Within normal limits. NECK: No masses, nodes or bruits. LUNGS: Clear. CARDIOVASCULAR: Regular rate, no murmur. ABDOMEN: Soft and benign. EXTREMITIES: Unremarkable. NEUROLOGIC: Nonfocal and physiologic. ASSESSMENT: Suspected seizures to explain the staring and confusion spells. There is no evidence of hypoglycemia, hypotension or other metabolic issues present. Other possibility would be cardiac arrhythmias. PLAN: As ordered. VICTORIANO LINDQUIST MD DR: PAPITO/[place] JOB#: [id number] / [id number]
[2020-07-06] MEDS ORDERED: NON FORMULARY ITEM (Canagliflozin (Invokana) 1 TAB) PO SCH (09:00)
--- NOTE | 2020-07-06 09:05 | EKG ---
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
--- NOTE | 2020-07-06 09:42 | PDOC2 ---
NEUROLOGY CONSULT Date of Service DOS: DATE: 07/06/20 TIME: 09:36 Reason for Consult Reason for Consult: Altered mental status Referring Physician Referring Physician: Dr. Hameed Source Source: Caregiver (Son, translates), Chart review, Patient History of Present Illness History of Present Illness The patient is a 50-year-old right-handed female who was praying yesterday. At about 3 PM she had 10 or 15 minutes where she was staring off into space and was unresponsive, unable to speak. About an hour later she had another 10-minute episode. There was no convulsive activity although the patient was a little tremulous after the second episode. She says that her head feels heavy still and felt strange yesterday. She also had some blurring of vision like a curtain over her eyes. There is no history of migraine, stroke, seizure, head injury, stress, or change in medication. She also has noticed some chest pressure. 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 Current Medications Current Medications Current Medications Potassium Chloride (Klor-Con) 40 meq 1X ONCE PO Last administered on 07/05/20at 22:43; Start 07/05/20 at 22:45; Stop 07/05/20 at 22:46; Status DC Aspirin (Aspirin Chewable) 324 mg 1X ONCE PO Last administered on 07/05/20at 23:03; Start 07/05/20 at 23:30; Stop 07/05/20 at 23:31; Status DC Ondansetron HCl (Zofran) 4 mg PRN Q8HRS PRN IV NAUSEA/VOMITING 1ST CHOICE; Start 07/05/20 at 23:00; Stop 07/06/20 at 22:59 Acetaminophen (Tylenol) 650 mg PRN Q6HRS PRN PO MILD PAIN / TEMP > 100.3'F Last administered on 07/06/20at 00:32; Start 07/06/20 at 00:30 Atorvastatin Calcium (Lipitor) 40 mg QHS PO ; Start 07/06/20 at 21:00 Hydrochlorothiazide (Microzide) 12.5 mg DAILY PO Last administered on 07/06/20at 08:38; Start 07/06/20 at 09:00 Non-Formulary Medication (Canagliflozin (Invokana)) 1 tab DAILY PO ; Start 07/06/20 at 09:00; Status UNV Gabapentin (Neurontin) 100 mg TID PO Last administered on 07/06/20at 08:39; Start 07/06/20 at 09:00 Insulin Human Lispro (HumaLOG) 12 units TIDWMEALS SQ Last administered on 07/06/20at 08:42; Start 07/06/20 at 08:00 Losartan Potassium (Cozaar) 100 mg DAILY PO Last administered on 07/06/20at 08:39; Start 07/06/20 at 09:00 Metformin HCl (Glucophage) 1,000 mg BIDWMEALS PO Last administered on 07/06/20at 08:39; Start 07/06/20 at 08:00 Pantoprazole Sodium (Protonix) 40 mg DAILYAC PO Last administered on 07/06/20at 07:21; Start 07/06/20 at 07:30 Ondansetron HCl (Zofran Odt) 4 mg PRN Q8HRS PRN PO NAUSEA/VOMITING; Start 07/06/20 at 00:45 Insulin Glargine (Lantus Syringe) 35 unit QHS SQ ; Start 07/06/20 at 21:00 Active Scripts Active Zofran (Ondansetron Hcl) 4 Mg Tablet 1 Tab PO PRN Q6-8HRS Zofran (Ondansetron Hcl) 4 Mg Tablet 1 Tab PO PRN Q6-8HRS Reported Lantus Solostar (Insulin Glargine,Hum.rec.anlog) 100 Unit/1 Ml Insuln.pen 35 Unit SQ QHS Invokana (Canagliflozin) 100 Mg Tablet 1 Tab PO DAILY 30 Days Gabapentin 600 Mg Tablet 100 Mg PO TID Omeprazole 40 Mg Capsule.dr 40 Mg PO DAILY Losartan Potassium 100 Mg Tablet 100 Mg PO DAILY Hydrochlorothiazide Capsule (Hydrochlorothiazide) 12.5 Mg Capsule 12.5 Mg PO DAILY Glucophage (Metformin Hcl) 1,000 Mg Tablet 1,000 Mg PO BIDWMEALS Atorvastatin Calcium 40 Mg Tablet 40 Mg PO DAILY Novolog Flexpen (Insulin Aspart) 100 Unit/1 Ml Insuln.pen 12 Units SQ TIDWMEALS Allergies Allergies: Coded Allergies: No Known Drug Allergies (Unverified , 12/28/19) ROS Review of System Negative for fever, chills, weight loss, shortness of breath, chest pain, indigestion, hematochezia, melena, and dysuria. Full 14-point review of systems is negative. Physical Exam Physical Examination General: Well-developed, well-nourished [place] female in no acute distress HEENT: Normocephalic andatraumatic.Temporal arteriespulsatile and nontender. Neck: Supple without bruit, no meningismus Musculoskeletal: Stability:see neurologic. Gait exam:see neurologic. Tone:see neurologic.Strength:see neurologic. Neurological: Mental Status:intact, orientation, memory, attention span/concentration, language, fund of knowledge normal. Cranial Nerves:Pupils equal and reactive to light, extraocular movements areintact, visual vázquez are full to confrontation. Facial sensation is normal. There is no facial asymmetry. Vestibulo-ocular reflex is intact. Palate elevates and tongue protrudes in midline. All other cranial related problems are negative except as mentioned before.Reflexes:2+ and symmetric with flexor plantar responses. Motor:5/5 strength with normal tone and bulk. Coordination:Finger-nose finger and [id number] testing are normal. Rapid alternating movements and fine finger movements are intact. Gait:Normal, including tandem. Sensory:Normal pinprick, vibration, light touch, proprioception. Vitals VITALS Vital Signs Date Time Temp Pulse Resp B/P (MAP) Pulse Ox O2 Delivery O2 Flow Rate FiO2 07/06/20 08:39 84 115/57 07/06/20 07:00 97.9 20 96 Room Air 97.9 Labs Labs Laboratory Tests Test 07/05/20 20:40 07/05/20 20:58 07/05/20 21:30 07/06/20 07:32 Glucose (Fingerstick) 144 mg/dL (70-99) 131 mg/dL (70-99) Urine Collection Type U cath Urine Color Yellow Urine Clarity Clear Urine pH 6.0 (<5.0-8.0) Urine Specific [place] 1.025 (1.000-1.030) Urine Protein Negative mg/dL (NEG-TRACE) Urine Glucose (UA) >=1000 mg/dL (NEG) Urine Ketones (Stick) Negative mg/dL (NEG) Urine Blood Negative (NEG) Urine Nitrite Negative (NEG) Urine Bilirubin Negative (NEG) Urine Urobilinogen Dipstick 0.2 mg/dL (0.2 mg/dL) Urine Leukocyte Esterase Negative (NEG) Urine RBC 0 /HPF (0-2) Urine WBC Occ /HPF (0-4) Urine Squamous Epithelial Cells Mod /LPF Urine Bacteria 0 /HPF (0-FEW) Urine Mucus Mod /LPF Urine Opiates Screen Neg (NEG) Urine Methadone Screen Neg (NEG) Urine Barbiturates Neg (NEG) Urine Phencyclidine Screen Neg (NEG) Urine Amphetamine/Methamphetamine Neg (NEG) Urine Benzodiazepines Screen Neg (NEG) Urine Cocaine Screen Neg (NEG) Urine Cannabinoids Screen Neg (NEG) Urine Ethyl Alcohol Neg (NEG) White Blood Count 8.7 x10^3/uL (4.0-11.0) Red Blood Count 4.42 x10^6/uL (3.50-5.40) Hemoglobin 12.4 g/dL (12.0-15.5) Hematocrit 37.2 % (36.0-47.0) Mean Corpuscular Volume 84 fL (79-100) Mean Corpuscular Hemoglobin 28 pg (25-35) Mean Corpuscular Hemoglobin Concent 33 g/dL (31-37) Red Cell Distribution Width 16.9 % (11.5-14.5) Platelet Count 264 x10^3/uL (140-400) Neutrophils (%) (Auto) 60 % (31-73) Lymphocytes (%) (Auto) 32 % (24-48) Monocytes (%) (Auto) 7 % (0-9) Eosinophils (%) (Auto) 1 % (0-3) Basophils (%) (Auto) 1 % (0-3) Neutrophils # (Auto) 5.2 x10^3/uL (1.8-7.7) Lymphocytes # (Auto) 2.8 x10^3/uL (1.0-4.8) Monocytes # (Auto) 0.6 x10^3/uL (0.0-1.1) Eosinophils # (Auto) 0.1 x10^3/uL (0.0-0.7) Basophils # (Auto) 0.1 x10^3/uL (0.0-0.2) Prothrombin Time 11.9 SEC (11.7-14.0) Prothromb Time International Ratio 0.9 (0.8-1.1) Activated Partial Thromboplast Time 34 SEC (24-38) Sodium Level 144 mmol/L (136-145) Potassium Level 3.1 mmol/L (3.5-5.1) Chloride Level 105 mmol/L (98-107) Carbon Dioxide Level 29 mmol/L (21-32) Anion Gap 10 (6-14) Blood Urea Nitrogen 10 mg/dL (7-20) Creatinine 0.8 mg/dL (0.6-1.0) Estimated GFR (Cockcroft-Gault) 75.6 BUN/Creatinine Ratio 13 (6-20) Glucose Level 148 mg/dL (70-99) Calcium Level 9.7 mg/dL (8.5-10.1) Magnesium Level 1.8 mg/dL (1.8-2.4) Total Bilirubin 0.3 mg/dL (0.2-1.0) Aspartate Amino Transf (AST/SGOT) 39 U/L (15-37) Alanine Aminotransferase (ALT/SGPT) 82 U/L (14-59) Alkaline Phosphatase 64 U/L (46-116) Troponin I Quantitative < 0.017 ng/mL (0.000-0.055) Total Protein 7.3 g/dL (6.4-8.2) Albumin 3.8 g/dL (3.4-5.0) Albumin/Globulin Ratio 1.1 (1.0-1.7) Thyroid Stimulating Hormone (TSH) 1.539 uIU/mL (0.358-3.74) Ethyl Alcohol Level < 10 mg/dL (0-10) Laboratory Tests Test 07/05/20 20:40 07/05/20 20:58 07/05/20 21:30 07/06/20 07:32 Glucose (Fingerstick) 144 mg/dL (70-99) 131 mg/dL (70-99) Urine Collection Type U cath Urine Color Yellow Urine Clarity Clear Urine pH 6.0 (<5.0-8.0) Urine Specific [place] 1.025 (1.000-1.030) Urine Protein Negative mg/dL (NEG-TRACE) Urine Glucose (UA) >=1000 mg/dL (NEG) Urine Ketones (Stick) Negative mg/dL (NEG) Urine Blood Negative (NEG) Urine Nitrite Negative (NEG) Urine Bilirubin Negative (NEG) Urine Urobilinogen Dipstick 0.2 mg/dL (0.2 mg/dL) Urine Leukocyte Esterase Negative (NEG) Urine RBC 0 /HPF (0-2) Urine WBC Occ /HPF (0-4) Urine Squamous Epithelial Cells Mod /LPF Urine Bacteria 0 /HPF (0-FEW) Urine Mucus Mod /LPF Urine Opiates Screen Neg (NEG) Urine Methadone Screen Neg (NEG) Urine Barbiturates Neg (NEG) Urine Phencyclidine Screen Neg (NEG) Urine Amphetamine/Methamphetamine Neg (NEG) Urine Benzodiazepines Screen Neg (NEG) Urine Cocaine Screen Neg (NEG) Urine Cannabinoids Screen Neg (NEG) Urine Ethyl Alcohol Neg (NEG) White Blood Count 8.7 x10^3/uL (4.0-11.0) Red Blood Count 4.42 x10^6/uL (3.50-5.40) Hemoglobin 12.4 g/dL (12.0-15.5) Hematocrit 37.2 % (36.0-47.0) Mean Corpuscular Volume 84 fL (79-100) Mean Corpuscular Hemoglobin 28 pg (25-35) Mean Corpuscular Hemoglobin Concent 33 g/dL (31-37) Red Cell Distribution Width 16.9 % (11.5-14.5) Platelet Count 264 x10^3/uL (140-400) Neutrophils (%) (Auto) 60 % (31-73) Lymphocytes (%) (Auto) 32 % (24-48) Monocytes (%) (Auto) 7 % (0-9) Eosinophils (%) (Auto) 1 % (0-3) Basophils (%) (Auto) 1 % (0-3) Neutrophils # (Auto) 5.2 x10^3/uL (1.8-7.7) Lymphocytes # (Auto) 2.8 x10^3/uL (1.0-4.8) Monocytes # (Auto) 0.6 x10^3/uL (0.0-1.1) Eosinophils # (Auto) 0.1 x10^3/uL (0.0-0.7) Basophils # (Auto) 0.1 x10^3/uL (0.0-0.2) Prothrombin Time 11.9 SEC (11.7-14.0) Prothromb Time International Ratio 0.9 (0.8-1.1) Activated Partial Thromboplast Time 34 SEC (24-38) Sodium Level 144 mmol/L (136-145) Potassium Level 3.1 mmol/L (3.5-5.1) Chloride Level 105 mmol/L (98-107) Carbon Dioxide Level 29 mmol/L (21-32) Anion Gap 10 (6-14) Blood Urea Nitrogen 10 mg/dL (7-20) Creatinine 0.8 mg/dL (0.6-1.0) Estimated GFR (Cockcroft-Gault) 75.6 BUN/Creatinine Ratio 13 (6-20) Glucose Level 148 mg/dL (70-99) Calcium Level 9.7 mg/dL (8.5-10.1) Magnesium Level 1.8 mg/dL (1.8-2.4) Total Bilirubin 0.3 mg/dL (0.2-1.0) Aspartate Amino Transf (AST/SGOT) 39 U/L (15-37) Alanine Aminotransferase (ALT/SGPT) 82 U/L (14-59) Alkaline Phosphatase 64 U/L (46-116) Troponin I Quantitative < 0.017 ng/mL (0.000-0.055) Total Protein 7.3 g/dL (6.4-8.2) Albumin 3.8 g/dL (3.4-5.0) Albumin/Globulin Ratio 1.1 (1.0-1.7) Thyroid Stimulating Hormone (TSH) 1.539 uIU/mL (0.358-3.74) Ethyl Alcohol Level < 10 mg/dL (0-10) Images Images CT HEAD INDICATION: Altered mental status COMPARISON: 04/09/2019. Exposure: One or more of the following individualized dose reduction techniques were utilized for this examination: 1. Automated exposure control 2. Adjustment of the mA and/or kV according to patient size 3. Use of iterative reconstruction technique TECHNIQUE: 5 mm contiguous axial images were obtained from the skull base to the vertex in both bone and soft tissue algorithm. FINDINGS: No abnormal attenuation within the brain parenchyma. No evidence of acute intracranial hemorrhage. No extra-axial fluid collections. No mass effect or midline shift. Ventricular size is appropriate. Basal cisterns are patent. No fractures identified.Chao-white differentiation is preserved.Globes and orbits are within normal limits. Paranasal sinuses and mastoid air cells are clear. IMPRESSION: No acute intracranial findings. Assessment/Plan Assessment/Plan Impression: Episodes of altered consciousness, usually these turned out to be some sort of metabolic issue such as hypoglycemia. Consider seizure or cardiac arrhythmia. Transient ischemic attack or stroke is very unlikely to present with such nonlocalizing symptoms. Migraine would be an attractive diagnosis but there is no history of migraines. Recommendations: MRI of the brain Echocardiogram Carotid Doppler studies Electroencephalogram Monitor overnight I discussed with patient and her son, including the fact that we might not determine the cause for certain with this work-up. Thank you for letting me help with the patient's care. LAURIE LOMAX MD Jul 06, 2020 09:41
--- NOTE | 2020-07-06 09:56 | RAD ---
EXAM: Carotid Doppler sonogram. HISTORY: Altered mental status. Unresponsive. Atherosclerosis. TECHNIQUE: Chao scale and color Doppler sonographic evaluation of the neck with spectral waveform analysis was performed and static images are submitted for review. FINDINGS: The peak systolic velocity within the right common carotid artery is 117 cm/sec. The peak systolic velocity within the right internal carotid artery is 84 cm/sec and the end diastolic velocity within the right internal carotid artery is 27 cm/sec. The right ICA/CCA ratio is 0.71. The peak systolic velocity within the left common carotid artery is 127 cm/sec. The peak systolic velocity within the left internal carotid artery is 111 cm/sec and the end diastolic velocity within the left internal carotid artery is 42 cm/sec. The left ICA/CCA ratio is 0.87. There is normal antegrade flow within both vertebral arteries. IMPRESSION: Elevated and diastolic velocity involving the left ICA. There is no corresponding elevated peak systolic velocity or elevated ICA to CCA ratio to suggest greater than 50 percent stenosis involving the left ICA. There is also no Doppler evidence of greater than 50 percent stenosis involving the right ICA. PQRS Compliance Statement - Stenosis calculations for CT, MR and conventional angiography are based upon measurement of the distal ICA diameter in accordance with the NASCET methodology. Stenosis calculations for carotid ultrasound studies are derived from validated velocity criteria which are known to correlate with the NASCET methodology. Electronically signed by: Arlette Genao MD (07/06/2020 9:53 AM) [id number]
--- NOTE | 2020-07-06 11:17 | RAD ---
BRAIN W/O CONTRAST History:Reason: headache, dizziness, vision changes / Spl. Instructions: / History: Technique: Multiplanar, multi sequential MR imaging was performed of the brain without contrast. Comparison: CT July 05, 2020 Findings: No acute infarct. No intracranial hemorrhage. No mass effect. No hydrocephalus. Mild brain parenchymal volume loss. Imaged orbits are unremarkable. Mild left maxillary sinus mucosal thickening. Mastoid air cells are clear. Impression: 1. No acute intracranial abnormality. Electronically signed by: Andrew Waller DO (07/06/2020 11:13 AM) [id number]
--- NOTE | 2020-07-06 12:51 | PDOC2 ---
MESERET BARRIENTOS GATE WATCHMAN 07/06/20 1251: CARDIAC CONSULT DATE OF CONSULT Date of Consult DATE: 07/06/20 TIME: 12:30 REASON FOR CONSULT Reason for Consult: Chest pain and syncope REFERRING PHYSICIAN Referring Physician: Emerita SOURCE Source: Chart review, Patient HISTORY OF PRESENT ILLNESS HISTORY OF PRESENT ILLNESS This is a pleasant 50 yo female admitted for complains of passing out and chest pain. Reports that her chest pain is lower midchest and has been going on for a while. It is tender but easily reproducible with palpation and nonradiating. No SOA and her CP has been chronic so far. She has had LHC in the past and noted without any CAD. She was sitting yesterday on the couch watching TV and was h aving tinnitus and throbbing FISHMAN but no visual disturbance and then was noted unconscious buy her family and lasting about 5 minutes before she started responding to them. No convulsions noted and no bowel or bladder incontinence. No facial droop or dysarthria. Upon awakening she was drowsy. This occurred the same earier but brief then followed this episode later in the day. No recent falls or injury. No hx of VTE or arrhythmias. PAST MEDICAL HISTORY Past Medical History Cardiovascular: HTN, Hyperlipidemia Pulmonary: No pertinent hx CENTRAL NERVOUS SYSTEM: Other (no pertinent hx) GI: No pertinent hx Heme/Onc: No pertinent hx Hepatobiliary: No pertinent hx Psych: No pertinent hx Musculoskeletal: Other (obesity) Rheumatologic: No pertinent hx Infectious disease: No pertinent hx ENT: No pertinent hx Renal/: UTI Endocrine: Diabetes (2), Other (menorrhagia) Dermatology: No pertinent hx PAST SURGICAL HISTORY Past Surgical History , Tubal Ligation, Tonsillectomy FAMILY HISTORY Family History noncontributory SOCIAL HISTORY Smoke: No ALCOHOL: none Drugs: None Lives: with Family CURRENT MEDICATIONS CURRENT MEDICATIONS Current Medications Medications (Trade) Dose Ordered Sig/Asha Route PRN Reason Start Time Stop Time Status Last Admin Dose Admin Potassium Chloride (Klor-Con) 40 meq 1X ONCE PO 07/05/20 22:45 07/05/20 22:46 DC 07/05/20 22:43 Aspirin (Aspirin Chewable) 324 mg 1X ONCE PO 07/05/20 23:30 07/05/20 23:31 DC 07/05/20 23:03 Acetaminophen (Tylenol) 650 mg PRN Q6HRS PRN PO MILD PAIN / TEMP > 100.3'F 07/06/20 00:30 07/06/20 00:32 Hydrochlorothiazide (Microzide) 12.5 mg DAILY PO 07/06/20 09:00 07/06/20 08:38 Gabapentin (Neurontin) 100 mg TID PO 07/06/20 09:00 07/06/20 08:39 Insulin Human Lispro (HumaLOG) 12 units TIDWMEALS SQ 07/06/20 08:00 07/06/20 08:42 Losartan Potassium (Cozaar) 100 mg DAILY PO 07/06/20 09:00 07/06/20 08:39 Metformin HCl (Glucophage) 1,000 mg BIDWMEALS PO 07/06/20 08:00 07/06/20 08:39 Pantoprazole Sodium (Protonix) 40 mg DAILYAC PO 07/06/20 07:30 07/06/20 07:21 ALLERGIES ALLERGIES: Coded Allergies: No Known Drug Allergies (Unverified , 12/28/19) ROS Review of System 14 point ROS evaluated with pertinent positives noted per HPI PHYSICAL EXAM General: Alert, Oriented X3, Cooperative, No acute distress HEENT: Atraumatic, Mucous membr. moist/pink Lungs: Clear to auscultation, Normal air movement Heart: Regular rate (SR no ectopies), Normal S1, Normal S2, No murmurs Abdomen: Soft, No tenderness Extremities: No cyanosis, No edema Skin: No breakdown, No significant lesion Neuro: Normal speech, Sensation intact Psych/Mental Status: Mental status NL, Mood NL MUSCULOSKELETAL: Osteoarthritic changes both hands VITALS/I&O VITALS/I&O: Vital Signs Date Time Temp Pulse Resp B/P (MAP) Pulse Ox O2 Delivery O2 Flow Rate FiO2 07/06/20 08:39 84 115/57 07/06/20 07:00 97.9 20 96 Room Air 97.9 I & O 07/05/20 07/05/20 07/06/20 15:00 23:00 07:00 Output Total 0 ml Balance 0 ml LABS Lab: Laboratory Tests Test 07/05/20 20:40 07/05/20 20:58 07/05/20 21:30 07/06/20 07:32 Glucose (Fingerstick) 144 mg/dL (70-99) H 131 mg/dL (70-99) H Urine Collection Type U cath Urine Color Yellow Urine Clarity Clear Urine pH 6.0 (<5.0-8.0) Urine Specific [place] 1.025 (1.000-1.030) Urine Protein Negative mg/dL (NEG-TRACE) Urine Glucose (UA) >=1000 mg/dL (NEG) Urine Ketones (Stick) Negative mg/dL (NEG) Urine Blood Negative (NEG) Urine Nitrite Negative (NEG) Urine Bilirubin Negative (NEG) Urine Urobilinogen Dipstick 0.2 mg/dL (0.2 mg/dL) Urine Leukocyte Esterase Negative (NEG) Urine RBC 0 /HPF (0-2) Urine WBC Occ /HPF (0-4) Urine Squamous Epithelial Cells Mod /LPF Urine Bacteria 0 /HPF (0-FEW) Urine Mucus Mod /LPF Urine Opiates Screen Neg (NEG) Urine Methadone Screen Neg (NEG) Urine Barbiturates Neg (NEG) Urine Phencyclidine Screen Neg (NEG) Urine Amphetamine/Methamphetamine Neg (NEG) Urine Benzodiazepines Screen Neg (NEG) Urine Cocaine Screen Neg (NEG) Urine Cannabinoids Screen Neg (NEG) Urine Ethyl Alcohol Neg (NEG) White Blood Count 8.7 x10^3/uL (4.0-11.0) Red Blood Count 4.42 x10^6/uL (3.50-5.40) Hemoglobin 12.4 g/dL (12.0-15.5) Hematocrit 37.2 % (36.0-47.0) Mean Corpuscular Volume 84 fL (79-100) Mean Corpuscular Hemoglobin 28 pg (25-35) Mean Corpuscular Hemoglobin Concent 33 g/dL (31-37) Red Cell Distribution Width 16.9 % (11.5-14.5) H Platelet Count 264 x10^3/uL (140-400) Neutrophils (%) (Auto) 60 % (31-73) Lymphocytes (%) (Auto) 32 % (24-48) Monocytes (%) (Auto) 7 % (0-9) Eosinophils (%) (Auto) 1 % (0-3) Basophils (%) (Auto) 1 % (0-3) Neutrophils # (Auto) 5.2 x10^3/uL (1.8-7.7) Lymphocytes # (Auto) 2.8 x10^3/uL (1.0-4.8) Monocytes # (Auto) 0.6 x10^3/uL (0.0-1.1) Eosinophils # (Auto) 0.1 x10^3/uL (0.0-0.7) Basophils # (Auto) 0.1 x10^3/uL (0.0-0.2) Prothrombin Time 11.9 SEC (11.7-14.0) Prothrombin Time INR 0.9 (0.8-1.1) Activated Partial Thromboplast Time 34 SEC (24-38) Sodium Level 144 mmol/L (136-145) Potassium Level 3.1 mmol/L (3.5-5.1) L Chloride Level 105 mmol/L (98-107) Carbon Dioxide Level 29 mmol/L (21-32) Anion Gap 10 (6-14) Blood Urea Nitrogen 10 mg/dL (7-20) Creatinine 0.8 mg/dL (0.6-1.0) Estimated GFR (Cockcroft-Gault) 75.6 BUN/Creatinine Ratio 13 (6-20) Glucose Level 148 mg/dL (70-99) H Calcium Level 9.7 mg/dL (8.5-10.1) Magnesium Level 1.8 mg/dL (1.8-2.4) Total Bilirubin 0.3 mg/dL (0.2-1.0) Aspartate Amino Transferase (AST) 39 U/L (15-37) H Alanine Aminotransferase (ALT) 82 U/L (14-59) H Alkaline Phosphatase 64 U/L (46-116) Troponin I Quantitative < 0.017 ng/mL (0.000-0.055) Total Protein 7.3 g/dL (6.4-8.2) Albumin 3.8 g/dL (3.4-5.0) Albumin/Globulin Ratio 1.1 (1.0-1.7) Thyroid Stimulating Hormone (TSH) 1.539 uIU/mL (0.358-3.74) Ethyl Alcohol Level < 10 mg/dL (0-10) Laboratory Tests 07/05/20 21:30 Laboratory Tests 07/05/20 21:30 ECHOCARDIOGRAM ECHOCARDIOGRAM <Conclusion> The left ventricle is normal size. The left ventricular systolic function is normal. The Ejection Fraction is 60- 65%. There is no significant aortic valvular stenosis. Doppler and Color Flow revealed no significant aortic regurgitation. Doppler and Color Flow revealed no significant mitral valve regurgitation. Doppler and Color Flow revealed trace to mild tricuspid regurgitation. There is no evidence of significant pericardial effusion. DATE: 03/01/14 1701 HEART CATH HEART CATH LEFT VENTRICULOGRAM: EF >70% Anterobasal: Normal. Anterolateral: Normal Apical: Normal Diaphragmatic: Normal Posterobasal: Normal CORONARY ANGIOGRAPHY: LM is a large caliber vessel with normal angiographic appearance. LAD is a large caliber vessel with normal angiographic appearance. Ramus is a moderate caliber vessel with normal angiographic apeparance. LCx is a moderate caliber non-dominant vessel with normal angiographic appearance. OM1 is a moderate caliber vessel with normal angiographic appearance. RCA is a large caliber dominant vessel with normal angiographic appearance. RPDA is a small caliber vessel with normal angiographic appearance. Conclusion 1. Normal left sided filling pressures. 2. Hyperdynamic LV function. EF > 70% 3. Normal angiographic appearance of the coronary arteries. Recommendations Aggressive Medical Therapy DATE: 07/26/18 1033 ASSESSMENT/PLAN ASSESSMENT/PLAN 1. Encephalopathy; possibly from migraine with aura as this was happening prior to event with tinnitus 2. Syncope: noncardiac. migraine, hypoglycemic episode part of the differential. No arrhythmias. 3. HTN: controlled 4. HLP 5. DM2: on insulin 6. Atypical CP: noncardiac, suspect MSK 7. Morbid obesity 8. Possible hepatic steatosis Recommendations 1. Continue secondary prevention measures. BP regimen and statin 2. TTE pending, no further cardiac workup otherwise. Will obtain orthostatic readings RAMAN MOMIN MD 07/07/20 0808: CARDIAC CONSULT ASSESSMENT/PLAN ASSESSMENT/PLAN Late entry for 07/06/2020 Pt. seen and examined. Agree with above RELIGIOUS EDUCATOR note. Supportive care. No clear cardiac pathology noted. MESERET BARRIENTOS APRN Jul 06, 2020 12:51 RAMAN MOMIN MD Jul 07, 2020 08:08
--- NOTE | 2020-07-06 13:29 | EEG ---
DATE OF SERVICE: 07/06/2020 EEG NUMBER: [id number] OBJECTIVE: The patient is a 50-year-old female with episodes of altered consciousness yesterday. DESCRIPTION: This is a digital study. Electrodes are placed according to international 10-20 system. Bipolar and referential montages are available. Activation procedures typically include hyperventilation and intermittent photic stimulation. INTERPRETATION: The waking background consists of 9-10 Hz, 50-100 microvolt activity, symmetrically distributed over parietooccipital regions and reactive to eye opening. Hyperventilation and intermittent photic stimulation are noncontributory. Sleep, stage 1, is achieved. IMPRESSION: This electroencephalogram with the patient awake and asleep is within normal limits. There is no focal, paroxysmal, or epileptiform activity. Thank you for letting us help with the patient's care. LAURIE LOMAX MD DR: OLLIE/[place] JOB#: [id number] / [id number]
--- NOTE | 2020-07-06 14:05 | NUR ---
SW following for discharge planning. Spoke with RN and reviewed chart. Pt from home with spouse. SW met with pt. Pt currently on room air, oral medications, cardiac diet. Discharge plan is home, self-care. No anticipated SW needs at discharge.
--- NOTE | 2020-07-06 14:34 | CARD ---
MR#: [id number] Date of Study: 07/06/2020 Ordering Physician: LAURIE LOMAX, Referring Physician: LAURIE LOMAX, Tech: Chanelle Leonardo BLAS APPROVED REPORT EXAM: Two-dimensional and M-mode echocardiogram with Doppler and color Doppler. Other Information Quality : Good INDICATION CVA/TIA Chest Pain Echo Enhancing Agent Agent/Amount Used: Agitated Saline 8mL 2D DIMENSIONS RVDd3.2 (2.9-3.5cm)Left Atrium(2D)3.9 (1.6-4.0cm) IVSd1.1 (0.7-1.1cm)Aortic Root(2D)3.0 (2.0-3.7cm) LVDd4.4 (3.9-5.9cm)LVOT Diameter2.1 (1.8-2.4cm) PWd1.1 (0.7-1.1cm)LVDs2.6 (2.5-4.0cm) FS (%) 30.0 %SV65.0 ml LVEF(%)60.0 (>50%) Aortic Valve AoV Peak Jose.152.5cm/sAoV VTI27.6cm AO Peak GR.9.3mmHgLVOT Peak Jose.114.7cm/s AO Mean GR.5mmHgAVA (VMAX)2.65cm2 BELLE (VTI)3.20cm2 Mitral Valve MV E Xryrufls53.8cm/sMV DECEL ZHTG728nn MV A Fvgefzty91.3cm/sE/A Ratio0.9 Tricuspid Valve TR P. Lbowiczo032on/sRAP IHBADUKW1jjNo TR Peak Gr.00quZkJWEW80ifRa Pulmonary Vein S1 Lohodkkv86.7cm/sD2 Zafvfuch98.8cm/s LEFT VENTRICLE The left ventricle is normal size. There is normal left ventricular wall thickness. The left ventricu lar systolic function is normal and the ejection fraction is within normal range. The Ejection Fracti on is 55-60%. There is normal LV segmental wall motion. Transmitral Doppler flow pattern is Grade I-a bnormal relaxation pattern. RIGHT VENTRICLE The right ventricle is normal size. The right ventricular systolic function is normal. ATRIA The left atrium size is normal. The right atrium size is normal. The interatrial septum is intact wit h no evidence for an atrial septal defect or patent foramen ovale as noted on 2-D or Doppler imaging. Injection of bubbles documented no interatrial shunt. AORTIC VALVE The aortic valve is normal in structure and function. Doppler and Color Flow revealed no significant aortic regurgitation. There is no significant aortic valvular stenosis. MITRAL VALVE The mitral valve is calcified but opens well. Mitral annular calcification is mild. There is no evide nce of mitral valve prolapse. There is no mitral valve stenosis. Doppler and Color-flow revealed mild mitral regurgitation. TRICUSPID VALVE The tricuspid valve is normal in structure and function. Doppler and Color Flow revealed mild tricusp id regurgitation. The PA pressure was estimated at 33 mmHg. There is no tricuspid valve stenosis. PULMONIC VALVE The pulmonic valve is not well visualized. Doppler and Color Flow revealed no pulmonic valvular regur gitation. There is no pulmonic valvular stenosis. GREAT VESSELS The aortic root is normal in size. The ascending aorta is not well seen. The IVC is normal in size an d collapses >50% with inspiration. PERICARDIAL EFFUSION There is no evidence of significant pericardial effusion. Critical Notification Critical Value: No <Conclusion> The left ventricle is normal size. The left ventricular systolic function is normal and the ejection fraction is within normal range. The Ejection Fraction is 55-60%. The interatrial septum is intact with no evidence for an atrial septal defect or patent foramen ovale as noted on 2-D or Doppler imaging. Injection of bubbles documented no interatrial shunt. Doppler and Color Flow revealed no significant aortic regurgitation. There is no significant aortic valvular stenosis. Doppler and Color-flow revealed mild mitral regurgitation. Doppler and Color Flow revealed mild tricuspid regurgitation. The PA pressure was estimated at 33 mmHg. Signed by : Drew Malik MD Electronically Approved : 07/06/2020 14:34:14
[2020-07-06 15:00] VITALS: BP 112/48
[2020-07-06 15:23] LABS: CALCIUM 9.3 mg/dL (8.5-10.1); CREATININE 0.8 mg/dL (0.6-1.0); GFR 75.6; POTASSIUM 3.7 mmol/L (3.5-5.1)
[2020-07-06 19:00] VITALS: BP_SYST 61; BP_SYST 91; BP_DIAS 61
[2020-07-06] MEDS ORDERED: ATORVASTATIN CALCIUM 40 MG TABLET. PO SCH (21:00)
[2020-07-06] MEDS ORDERED: INSULIN GLARGINE SYRINGE. SQ SCH (21:00)
[2020-07-06 23:00] VITALS: BP 111/66
[2020-07-07 03:00] VITALS: BP 114/74
[2020-07-07] MEDS: PANTOPRAZOLE 40 MG TABLET.DR. PO SCH (06:32)
[2020-07-07 07:00] VITALS: BP 108/77
--- NOTE | 2020-07-07 08:20 | PDOC ---
DATE OF SERVICE: DATE: 07/07/20 TIME: 08:19 GENERAL General: vss and afebrile. awake and alert and son present. back to baseline other than bifrontal headache with pounding component in left episcopal area. chest clear, heart regular, abdomen benign, neuro non focal. workup to date unremarkable. await final direction from neuro. VITAL SIGNS/I&O Vital Signs/I&O: Vital Signs Date Time Temp Pulse Resp B/P (MAP) Pulse Ox O2 Delivery O2 Flow Rate FiO2 07/07/20 03:00 98.2 78 20 114/74 (87) 97 Room Air 98.2 I & O 07/06/20 07/06/20 07/07/20 15:00 23:00 07:00 Intake Total 0 ml 120 ml 300 ml Balance 0 ml 120 ml 300 ml ALLERGIES Allergies: Allergies Coded Allergies Type Severity Reaction Last Updated Verified No Known Drug Allergies 12/28/19 No MEDS Medications: Current Medications Medications (Trade) Dose Ordered Sig/Asha Route PRN Reason Start Time Stop Time Status Last Admin Dose Admin Atorvastatin Calcium (Lipitor) 40 mg QHS PO 07/06/20 21:00 07/06/20 20:30 Hydrochlorothiazide (Microzide) 12.5 mg DAILY PO 07/06/20 09:00 07/06/20 08:38 Gabapentin (Neurontin) 100 mg TID PO 07/06/20 09:00 07/06/20 20:30 Losartan Potassium (Cozaar) 100 mg DAILY PO 07/06/20 09:00 07/06/20 08:39 Insulin Glargine (Lantus Syringe) 35 unit QHS SQ 07/06/20 21:00 07/06/20 20:46 LAB Lab: Laboratory Tests Test 07/06/20 13:16 07/06/20 14:37 07/06/20 16:27 07/06/20 20:28 Glucose (Fingerstick) 96 mg/dL (70-99) 101 mg/dL (70-99) H 123 mg/dL (70-99) H Sodium Level 142 mmol/L (136-145) Potassium Level 3.7 mmol/L (3.5-5.1) Chloride Level 106 mmol/L (98-107) Carbon Dioxide Level 27 mmol/L (21-32) Anion Gap 9 (6-14) Blood Urea Nitrogen 13 mg/dL (7-20) Creatinine 0.8 mg/dL (0.6-1.0) Estimated GFR (Cockcroft-Gault) 75.6 Glucose Level 139 mg/dL (70-99) H Calcium Level 9.3 mg/dL (8.5-10.1) Test 07/07/20 06:34 07/07/20 07:51 Glucose (Fingerstick) 142 mg/dL (70-99) H 86 mg/dL (70-99) Laboratory Tests 07/06/20 14:37 Justifications for Admission Other Justification LINUS EASON MD Jul 07, 2020 08:20
[2020-07-07] MEDS: LOSARTAN POTASSIUM 50 MG TABLET. PO SCH (09:00)
[2020-07-07] MEDS: hydroCHLOROthiazide 12.5 MG CAPSULE PO SCH (09:01)
[2020-07-07] MEDS: metFORMIN 500 MG TABLET PO SCH (09:01)
[2020-07-07] MEDS: GABAPENTIN 100 MG CAPSULE. PO SCH ×2 (09:01→15:18)
[2020-07-07] MEDS: INSULIN LISPRO 300 UNITS/3 ML VIAL. SQ SCH ×2 (09:02→12:37)
[2020-07-07 11:16] VITALS: BP 135/83
--- NOTE | 2020-07-07 12:15 | NUR ---
Spoke with Dr Calderon, said to follow up in 6-8 weeks.
--- NOTE | 2020-07-07 12:30 | NUR ---
Spoke with Dr Diaz, said he will send out heart monitor and follow up info.
--- NOTE | 2020-07-07 13:50 | PDOC ---
PROGRESS NOTES Date of Service DATE: 07/07/20 TIME: 13:45 Assessment Problems Medical Problems: (1) Altered mental status Status: Acute (2) Syncope Status: Acute Episodes of altered consciousness, work-up was entirely negative, possibly still was a metabolic issue such as hypoglycemia, I am still wondering about migraine even though there is no history. The patient still has somewhat of a pressure feeling in her head. Plan Okay for discharge Patient to return if any new symptoms I did consider CT angiogram, but there is no evidence that she had an aneurysmal subarachnoid hemorrhage. Cardiology is going to do outpatient event monitoring Follow-up with me in 6-8 weeks Discussed with patient's daughter. Subjective No other complaints Objective Vital Signs Date Time Temp Pulse Resp B/P (MAP) Pulse Ox O2 Delivery O2 Flow Rate FiO2 07/07/20 11:16 97.8 82 18 135/83 (100) 99 Room Air 97.8 Intake and Output 07/07/20 07:00 Intake Total 420 ml Balance 420 ml Intake Oral 420 ml # Voids 3 PHYSICAL EXAM Alert. Oriented to time, place and person. PERRL. EOMI. CN: no focal findings. Muscle tone: normal. Muscle strength: 5/5 DTR: 2+ Plantar reflex: Flexor Gait: Normal. Sensory exam: no abnormal findings. No cerebellar signs elicited. Review of Relevant I have reviewed the following items marta (where applicable) has been applied. Labs Laboratory Tests Test 07/05/20 20:40 07/05/20 20:58 07/05/20 21:30 07/06/20 07:32 Glucose (Fingerstick) 144 mg/dL (70-99) 131 mg/dL (70-99) Urine Collection Type U cath Urine Color Yellow Urine Clarity Clear Urine pH 6.0 (<5.0-8.0) Urine Specific Paradox 1.025 (1.000-1.030) Urine Protein Negative mg/dL (NEG-TRACE) Urine Glucose (UA) >=1000 mg/dL (NEG) Urine Ketones (Stick) Negative mg/dL (NEG) Urine Blood Negative (NEG) Urine Nitrite Negative (NEG) Urine Bilirubin Negative (NEG) Urine Urobilinogen Dipstick 0.2 mg/dL (0.2 mg/dL) Urine Leukocyte Esterase Negative (NEG) Urine RBC 0 /HPF (0-2) Urine WBC Occ /HPF (0-4) Urine Squamous Epithelial Cells Mod /LPF Urine Bacteria 0 /HPF (0-FEW) Urine Mucus Mod /LPF Urine Opiates Screen Neg (NEG) Urine Methadone Screen Neg (NEG) Urine Barbiturates Neg (NEG) Urine Phencyclidine Screen Neg (NEG) Urine Amphetamine/Methamphetamine Neg (NEG) Urine Benzodiazepines Screen Neg (NEG) Urine Cocaine Screen Neg (NEG) Urine Cannabinoids Screen Neg (NEG) Urine Ethyl Alcohol Neg (NEG) White Blood Count 8.7 x10^3/uL (4.0-11.0) Red Blood Count 4.42 x10^6/uL (3.50-5.40) Hemoglobin 12.4 g/dL (12.0-15.5) Hematocrit 37.2 % (36.0-47.0) Mean Corpuscular Volume 84 fL (79-100) Mean Corpuscular Hemoglobin 28 pg (25-35) Mean Corpuscular Hemoglobin Concent 33 g/dL (31-37) Red Cell Distribution Width 16.9 % (11.5-14.5) Platelet Count 264 x10^3/uL (140-400) Neutrophils (%) (Auto) 60 % (31-73) Lymphocytes (%) (Auto) 32 % (24-48) Monocytes (%) (Auto) 7 % (0-9) Eosinophils (%) (Auto) 1 % (0-3) Basophils (%) (Auto) 1 % (0-3) Neutrophils # (Auto) 5.2 x10^3/uL (1.8-7.7) Lymphocytes # (Auto) 2.8 x10^3/uL (1.0-4.8) Monocytes # (Auto) 0.6 x10^3/uL (0.0-1.1) Eosinophils # (Auto) 0.1 x10^3/uL (0.0-0.7) Basophils # (Auto) 0.1 x10^3/uL (0.0-0.2) Prothrombin Time 11.9 SEC (11.7-14.0) Prothromb Time International Ratio 0.9 (0.8-1.1) Activated Partial Thromboplast Time 34 SEC (24-38) Sodium Level 144 mmol/L (136-145) Potassium Level 3.1 mmol/L (3.5-5.1) Chloride Level 105 mmol/L (98-107) Carbon Dioxide Level 29 mmol/L (21-32) Anion Gap 10 (6-14) Blood Urea Nitrogen 10 mg/dL (7-20) Creatinine 0.8 mg/dL (0.6-1.0) Estimated GFR (Cockcroft-Gault) 75.6 BUN/Creatinine Ratio 13 (6-20) Glucose Level 148 mg/dL (70-99) Calcium Level 9.7 mg/dL (8.5-10.1) Magnesium Level 1.8 mg/dL (1.8-2.4) Total Bilirubin 0.3 mg/dL (0.2-1.0) Aspartate Amino Transf (AST/SGOT) 39 U/L (15-37) Alanine Aminotransferase (ALT/SGPT) 82 U/L (14-59) Alkaline Phosphatase 64 U/L (46-116) Troponin I Quantitative < 0.017 ng/mL (0.000-0.055) Total Protein 7.3 g/dL (6.4-8.2) Albumin 3.8 g/dL (3.4-5.0) Albumin/Globulin Ratio 1.1 (1.0-1.7) Thyroid Stimulating Hormone (TSH) 1.539 uIU/mL (0.358-3.74) Ethyl Alcohol Level < 10 mg/dL (0-10) Test 07/06/20 13:16 07/06/20 14:37 07/06/20 16:27 07/06/20 20:28 Glucose (Fingerstick) 96 mg/dL (70-99) 101 mg/dL (70-99) 123 mg/dL (70-99) Sodium Level 142 mmol/L (136-145) Potassium Level 3.7 mmol/L (3.5-5.1) Chloride Level 106 mmol/L (98-107) Carbon Dioxide Level 27 mmol/L (21-32) Anion Gap 9 (6-14) Blood Urea Nitrogen 13 mg/dL (7-20) Creatinine 0.8 mg/dL (0.6-1.0) Estimated GFR (Cockcroft-Gault) 75.6 Glucose Level 139 mg/dL (70-99) Calcium Level 9.3 mg/dL (8.5-10.1) Test 07/07/20 06:34 07/07/20 07:51 07/07/20 11:28 Glucose (Fingerstick) 142 mg/dL (70-99) 86 mg/dL (70-99) 114 mg/dL (70-99) Laboratory Tests Test 07/06/20 14:37 07/06/20 16:27 07/06/20 20:28 07/07/20 06:34 Sodium Level 142 mmol/L (136-145) Potassium Level 3.7 mmol/L (3.5-5.1) Chloride Level 106 mmol/L (98-107) Carbon Dioxide Level 27 mmol/L (21-32) Anion Gap 9 (6-14) Blood Urea Nitrogen 13 mg/dL (7-20) Creatinine 0.8 mg/dL (0.6-1.0) Estimated GFR (Cockcroft-Gault) 75.6 Glucose Level 139 mg/dL (70-99) Calcium Level 9.3 mg/dL (8.5-10.1) Glucose (Fingerstick) 101 mg/dL (70-99) 123 mg/dL (70-99) 142 mg/dL (70-99) Test 07/07/20 07:51 07/07/20 11:28 Glucose (Fingerstick) 86 mg/dL (70-99) 114 mg/dL (70-99) Medications Current Medications Potassium Chloride (Klor-Con) 40 meq 1X ONCE PO Last administered on 07/05/20at 22:43; Start 07/05/20 at 22:45; Stop 07/05/20 at 22:46; Status DC Aspirin (Aspirin Chewable) 324 mg 1X ONCE PO Last administered on 07/05/20at 23:03; Start 07/05/20 at 23:30; Stop 07/05/20 at 23:31; Status DC Ondansetron HCl (Zofran) 4 mg PRN Q8HRS PRN IV NAUSEA/VOMITING 1ST CHOICE; Start 07/05/20 at 23:00; Stop 07/06/20 at 22:59; Status DC Acetaminophen (Tylenol) 650 mg PRN Q6HRS PRN PO MILD PAIN / TEMP > 100.3'F Last administered on 07/06/20at 00:32; Start 07/06/20 at 00:30 Atorvastatin Calcium (Lipitor) 40 mg QHS PO Last administered on 07/06/20 20:30; Start 07/06/20 at 21:00 Hydrochlorothiazide (Microzide) 12.5 mg DAILY PO Last administered on 07/07/20at 09:01; Start 07/06/20 at 09:00 Non-Formulary Medication (Canagliflozin (Invokana)) 1 tab DAILY PO ; Start 07/06/20 at 09:00; Stop 07/06/20 at 17:38; Status DC Gabapentin (Neurontin) 100 mg TID PO Last administered on 07/07/20at 09:01; Start 07/06/20 at 09:00 Insulin Human Lispro (HumaLOG) 12 units TIDWMEALS SQ Last administered on 07/07/20at 12:37; Start 07/06/20 at 08:00 Losartan Potassium (Cozaar) 100 mg DAILY PO Last administered on 07/07/20 09:00; Start 07/06/20 at 09:00 Metformin HCl (Glucophage) 1,000 mg BIDWMEALS PO Last administered on 07/07/20at 09:01; Start 07/06/20 at 08:00 Pantoprazole Sodium (Protonix) 40 mg DAILYAC PO Last administered on 07/07/20 06:32; Start 07/06/20 at 07:30 Ondansetron HCl (Zofran Odt) 4 mg PRN Q8HRS PRN PO NAUSEA/VOMITING; Start 07/06/20 at 00:45 Insulin Glargine (Lantus Syringe) 35 unit QHS SQ Last administered on 07/06/20at 20:46; Start 07/06/20 at 21:00 Active Scripts Active Zofran (Ondansetron Hcl) 4 Mg Tablet 1 Tab PO PRN Q6-8HRS Zofran (Ondansetron Hcl) 4 Mg Tablet 1 Tab PO PRN Q6-8HRS Reported Lantus Solostar (Insulin Glargine,Hum.rec.anlog) 100 Unit/1 Ml Insuln.pen 35 Unit SQ QHS Invokana (Canagliflozin) 100 Mg Tablet 1 Tab PO DAILY 30 Days Gabapentin 600 Mg Tablet 100 Mg PO TID Omeprazole 40 Mg Capsule.dr 40 Mg PO DAILY Losartan Potassium 100 Mg Tablet 100 Mg PO DAILY Hydrochlorothiazide Capsule (Hydrochlorothiazide) 12.5 Mg Capsule 12.5 Mg PO DAILY Glucophage (Metformin Hcl) 1,000 Mg Tablet 1,000 Mg PO BIDWMEALS Atorvastatin Calcium 40 Mg Tablet 40 Mg PO DAILY Novolog Flexpen (Insulin Aspart) 100 Unit/1 Ml Insuln.pen 12 Units SQ TIDWMEALS Vitals/I & O Vital Sign - Last 24 Hours 07/06/20 07/06/20 07/06/20 07/06/20 15:00 19:00 20:00 23:00 Temp 98.3 98.8 98.1 98.3 98.8 98.1 Pulse 82 81 83 Resp 18 20 20 B/P (MAP) 112/48 (69) 91/61 (71) 111/66 (81) Pulse Ox 96 95 94 O2 Delivery Room Air Room Air Room Air Room Air 07/07/20 07/07/20 07/07/20 07/07/20 03:00 07:00 09:00 11:16 Temp 98.2 97.5 97.8 98.2 97.5 97.8 Pulse 78 79 79 82 Resp 20 18 18 B/P (MAP) 114/74 (87) 108/77 (87) 108/77 135/83 (100) Pulse Ox 97 95 99 O2 Delivery Room Air Room Air Room Air Intake and Output 07/06/20 07/06/20 07/07/20 15:00 23:00 07:00 Intake Total 0 ml 120 ml 300 ml Balance 0 ml 120 ml 300 ml Images Electroencephalogram: Normal awake and asleep BRAIN W/O CONTRAST History:Reason: headache, dizziness, vision changes / Spl. Instructions: / History: Technique: Multiplanar, multi sequential MR imaging was performed of the brain without contrast. Comparison: CT July 05, 2020 Findings: No acute infarct. No intracranial hemorrhage. No mass effect. No hydrocephalus. Mild brain parenchymal volume loss. Imaged orbits are unremarkable. Mild left maxillary sinus mucosal thickening. Mastoid air cells are clear. Impression: 1. No acute intracranial abnormality. Carotid Doppler sonogram. HISTORY: Altered mental status. Unresponsive. Atherosclerosis. TECHNIQUE: Chao scale and color Doppler sonographic evaluation of the neck with spectral waveform analysis was performed and static images are submitted for review. FINDINGS: The peak systolic velocity within the right common carotid artery is 117 cm/sec. The peak systolic velocity within the right internal carotid artery is 84 cm/sec and the end diastolic velocity within the right internal carotid artery is 27 cm/sec. The right ICA/CCA ratio is 0.71. The peak systolic velocity within the left common carotid artery is 127 cm/sec. The peak systolic velocity within the left internal carotid artery is 111 cm/sec and the end diastolic velocity within the left internal carotid artery is 42 cm/sec. The left ICA/CCA ratio is 0.87. There is normal antegrade flow within both vertebral arteries. IMPRESSION: Elevated and diastolic velocity involving the left ICA. There is no corresponding elevated peak systolic velocity or elevated ICA to CCA ratio to suggest greater than 50 percent stenosis involving the left ICA. There is also no Doppler evidence of greater than 50 percent stenosis involving the right ICA. Echocardiogram: LEFT VENTRICLE The left ventricle is normal size. There is normal left ventricular wall thickness. The left ventricular systolic function is normal and the ejection fraction is within normal range. The Ejection Fraction is 55-60%. There is normal LV segmental wall motion. Transmitral Doppler flow pattern is Grade I- abnormal relaxation pattern. RIGHT VENTRICLE The right ventricle is normal size. The right ventricular systolic function is normal. ATRIA The left atrium size is normal. The right atrium size is normal. The interatrial septum is intact with no evidence for an atrial septal defect or patent foramen ovale as noted on 2-D or Doppler imaging. Injection of bubbles documented no interatrial shunt. AORTIC VALVE The aortic valve is normal in structure and function. Doppler and Color Flow revealed no significant aortic regurgitation. There is no significant aortic valvular stenosis. MITRAL VALVE The mitral valve is calcified but opens well. Mitral annular calcification is mild. There is no evidence of mitral valve prolapse. There is no mitral valve stenosis. Doppler and Color-flow revealed mild mitral regurgitation. TRICUSPID VALVE The tricuspid valve is normal in structure and function. Doppler and Color Flow revealed mild tricuspid regurgitation. The PA pressure was estimated at 33 mmHg. There is no tricuspid valve stenosis. PULMONIC VALVE The pulmonic valve is not well visualized. Doppler and Color Flow revealed no pulmonic valvular regurgitation. There is no pulmonic valvular stenosis. GREAT VESSELS The aortic root is normal in size. The ascending aorta is not well seen. The IVC is normal in size and collapses >50% with inspiration. PERICARDIAL EFFUSION There is no evidence of significant pericardial effusion. Critical Notification Critical Value: No <Conclusion> The left ventricle is normal size. The left ventricular systolic function is normal and the ejection fraction is within normal range. The Ejection Fraction is 55-60%. The interatrial septum is intact with no evidence for an atrial septal defect or patent foramen ovale as noted on 2-D or Doppler imaging. Injection of bubbles documented no interatrial shunt. Doppler and Color Flow revealed no significant aortic regurgitation. There is no significant aortic valvular stenosis. Doppler and Color-flow revealed mild mitral regurgitation. Doppler and Color Flow revealed mild tricuspid regurgitation. The PA pressure was estimated at 33 mmHg. Justicifation of Admission Dx: Justifications for Admission: Justification of Admission Dx: N/A LAURIE LOMAX MD Jul 07, 2020 13:49
[2020-07-07 14:38] VITALS: BP 128/72
--- NOTE | 2020-07-07 16:45 | NUR ---
Patient discharged to home, educated on medications and follow up appointment. Patient left in wheelchair with daughter by her side.
--- NOTE | 2020-07-08 11:41 | DS ---
DATE OF DISCHARGE: 07/07/2020 PRIMARY DIAGNOSES: Unresponsive spells with inability to speak for 10-15 minutes x 2 at the time of admission of uncertain etiology, by discharge. ADDITIONAL DIAGNOSES: Hypertension, diabetes. CHIEF COMPLAINT AND HISTORY OF PRESENT ILLNESS: This 50-year-old female, patient of Dr. Victoriano Hameed, admitted through the Emergency Room on the day of admission with spells as above. SUMMARY OF STAY: The patient was admitted. Cardiology and Neurology were consulted. She had no cardiac arrhythmias during the stay to explain her symptomatology. Exhaustive neurological workup including CT head, MRI head, carotid Dopplers were negative. EEG showed no seizure activity. She had no further spells during the stay, although she did have a headache at the time of my examination on the day of discharge, which she described as bifrontal and some pounding on the left side, making me think this may be on some sort of migraine phenomenon, but was not felt by Neurology to be the same. She was felt ready for dismissal with further outpatient therapy with life threatening etiologies ruled out during the stay. DISPOSITION: The patient is discharged to home. DIET: ADA diet. ACTIVITY: As tolerated. FOLLOWUP: Office Dr. Hameed this coming week. DISCHARGE MEDICATIONS: Listed on the med rec and have been addressed. LINUS EASON MD DR: MILAGROS/[place] JOB#: [id number] / [id number] VICTORIANO Fraser MD
== END 2020-07-07 16:45 | disposition home or self-care (01) | DRG 71 ==
LOC: ER 20:32 → 5 NORTH 22:51
PROVIDERS: ADMIT Family Medicine; ATTEND Family Medicine
DX: G93.40 Encephalopathy, unspecified (principal); Z68.41 Body mass index [BMI] 40.0-44.9, adult; G43.909 Migraine, unspecified, not intractable, without status migrainosus; E66.01 Morbid (severe) obesity due to excess calories; E78.00 Pure hypercholesterolemia, unspecified; E78.5 Hyperlipidemia, unspecified; I10 Essential (primary) hypertension; Z79.4 Long term (current) use of insulin; Z83.3 Family history of diabetes mellitus; Z90.710 Acquired absence of both cervix and uterus; Z20.828 Contact with and (suspected) exposure to other viral communicable diseases
CPT/HCPCS: 36415; 70450; 70551; 71045; 80048; 80053; 80307; 81001; 82962; 83735; 84443; 84484; 85025; 85610; 85730; 93005; 93306; 93880; 95816; G0480; J1815; 99285-25; G0378

== ENCOUNTER 2020-11-04 15:30 | Emergency (ER) | payer MEDICAID ==
[~2020-11-04] VITALS: Ht 170.2 cm; Wt 110.0 kg
[~2020-11-04 15:30] MED LIST changes: +CANA100T PO
[2020-11-04 16:13] LABS: BILIRUBIN,URINE NEGATIVE (NEG); CLARITY,URINE CLEAR; COLOR,URINE YELLOW; NITRITE,URINE NEGATIVE (NEG); PROTEIN,URINE NEGATIVE (NEG-TRACE); UROBILINOGEN,URINE 0.2 mg/dL (0.2 mg/dL)
[2020-11-04 16:18] LABS: BARBITURATES NEG (NEG); BENZODIAZEPINES NEG (NEG); CANNABINOIDS NEG (NEG); COCAINE NEG (NEG); METHADONE NEG (NEG); OPIATES NEG (NEG); PHENCYCLIDINE NEG (NEG)
[2020-11-04 16:21] LABS: AMPHETAMINE/METHAMPHETAMINE NEG (NEG)
[2020-11-04 16:23] LABS: BACTERIA,URINE MODERATE /HPF (0-FEW)
[2020-11-04 16:24] LABS: RBC,URINE 0 /HPF (0-2); WBC,URINE OCC /HPF (0-4)
[2020-11-04] MEDS ORDERED: LIDO:MAALOX 1:1 20 ML SINGLE DOSE. SWSW ONE (16:30)
[2020-11-04] MEDS ORDERED: KETOROLAC 30 MG/ML VIAL. IVP ONE (16:30)
[2020-11-04] MEDS ORDERED: FAMOTIDINE 20 MG/2 ML VIAL IVP ONE (16:30)
[2020-11-04] MEDS ORDERED: diphenhydrAMINE HCL 25 MG CAPSULE PO ONE (16:30)
[2020-11-04] MEDS ORDERED: DEXAMETHASONE SOD PHOS 20 MG/5 ML VIAL. IV ONE (16:30)
--- NOTE | 2020-11-04 16:44 | RAD ---
XR CHEST 1V 11/04/2020 4:18 PM INDICATION: Chills COMPARISON: 07/05/2020 TECHNIQUE: Portable frontal view of the chest is provided. FINDINGS: The cardiomediastinal silhouette is within normal limits. Lungs are clear. There are no significant pleural effusions. There is no pulmonary vascular congestion. No pneumothora x. No suspicious osseous abnormality. IMPRESSION: There is no acute cardiopulmonary process. Electronically signed by: Fátima Ramos MD (11/04/2020 4:41 PM) [facility]
[2020-11-04 16:53] LABS: BASO % 1 % (0-3); EOS # 0.1 x10^3/uL (0.0-0.7); EOS % 1 % (0-3); HEMOGLOBIN 13.9 g/dL (12.0-15.5); LYMPH # 2.2 x10^3/uL (1.0-4.8); LYMPH % 24 % (24-48); MEAN CORPUSCULAR HEMOGLOBIN 28 pg (25-35); MEAN CORPUSCULAR HGB CONC 32 g/dL (31-37); MEAN CORPUSCULAR VOLUME 86 fL (79-100); MONO # 0.5 x10^3/uL (0.0-1.1); MONO % 6 % (0-9); NEUT # 6.1 x10^3/uL (1.8-7.7); NEUT % 68 % (31-73); PLATELET COUNT 302 x10^3/uL (140-400); RED BLOOD COUNT 5.01 x10^6/uL (3.50-5.40); RED CELL DISTRIBUTION WIDTH 16.8 % (11.5-14.5); WHITE BLOOD COUNT 8.9 x10^3/uL (4.0-11.0)
[2020-11-04 17:03] LABS: CALCIUM 9.2 mg/dL (8.5-10.1); CREATININE 0.9 mg/dL (0.6-1.0); POTASSIUM 4.1 mmol/L (3.5-5.1)
[2020-11-04 17:09] LABS: ALBUMIN 3.9 g/dL (3.4-5.0); MAGNESIUM 1.6 mg/dL (1.8-2.4); TOTAL BILIRUBIN 0.3 mg/dL (0.2-1.0); TOTAL PROTEIN 7.9 g/dL (6.4-8.2)
[2020-11-04 17:30] VITALS: BP 139/82
[2020-11-04] MEDS ORDERED: MORPHINE SULFATE 10 MG/ML VIAL. IV ONE (17:30)
--- NOTE | 2020-11-04 17:37 | EKG ---
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
--- NOTE | 2020-11-04 18:55 | PHYS DOC ---
Past Medical History Past Medical History: Diabetes-Type II, High Cholesterol, Hypertension Past Surgical History: , Hysterectomy, Tubal ligation Smoking Status: Never Smoker Alcohol Use: None Drug Use: None General Adult EDM: Chief Complaint: HEADACHE HPI: HPI: Patient is a 50 year old female with history of diabetes type 2, hypertension, high cholesterol, who presents to the ED today with the daughter who is interpreting for public. Patient is complaining of facial swelling, symptoms for 1 week. Also complaining of chills and a mild intermittent headache for a week. Denies any cough or congestion. Review of Systems: Review of Systems: Constitutional: Reports chills, denies fever Eyes: Denies change in visual acuity. [] HENT: Reports facial swelling. Denies nasal congestion or sore throat. [] Respiratory: Denies cough or shortness of breath. [] Cardiovascular: Denies chest pain or edema. [] GI: Denies abdominal pain, nausea, vomiting, bloody stools or diarrhea. [] : Denies dysuria. [] Musculoskeletal: Denies back pain or joint pain. [] Integument: Denies rash. [] Neurologic: Reports headache, denies focal weakness or sensory changes. [] Psychiatric: Denies depression or anxiety. [] Heart Score: C/O Chest Pain: N/A Risk Factors: Risk Factors: DM, Current or recent (<one month) smoker, HTN, HLP, family history of CAD, obesity. Risk Scores: Score 0 - 3: 2.5% MACE over next 6 weeks - Discharge Home Score 4 - 6: 20.3% MACE over next 6 weeks - Admit for Clinical Observation Score 7 - 10: 72.7% MACE over next 6 weeks - Early Invasive Strategies Current Medications: Current Medications Medications (Trade) Dose Ordered Sig/Asha Start Time Stop Time Status Last Admin Dose Admin Dexamethasone Sodium Phosphate (Decadron) 10 mg 1X ONCE 11/04/20 16:30 11/04/20 16:31 DC 11/04/20 16:46 10 MG Diphenhydramine HCl (Benadryl) 25 mg 1X ONCE 11/04/20 16:30 11/04/20 16:31 DC 11/04/20 16:45 25 MG Famotidine (Pepcid Vial) 20 mg 1X ONCE 11/04/20 16:30 11/04/20 16:31 DC 11/04/20 16:47 20 MG Ketorolac Tromethamine (Toradol 30mg Vial) 30 mg 1X ONCE 11/04/20 16:30 11/04/20 16:31 DC 11/04/20 16:47 30 MG Morphine Sulfate (Morphine Sulfate) 5 mg 1X ONCE 11/04/20 17:30 11/04/20 17:31 DC 11/04/20 17:30 5 MG Multi-Ingredient Mouthwash/Gargle (Gi Cocktail) 20 ml 1X ONCE 11/04/20 16:30 11/04/20 16:31 DC 11/04/20 16:52 20 ML Allergies: Allergies: Allergies Coded Allergies Type Severity Reaction Last Updated Verified No Known Drug Allergies 12/28/19 No Physical Exam: PE: Constitutional: Well developed, well nourished, no acute distress, non-toxic appearance. [] HENT: Normocephalic, atraumatic, bilateral external ears normal, oropharynx moist, no oral exudates, nose normal. [] Eyes: PERRLA, EOMI, conjunctiva normal, no discharge. [] Neck: Normal range of motion, no tenderness, supple, no stridor. [] Cardiovascular:Heart rate regular rhythm, no murmur [] Lungs & Thorax: Bilateral breath sounds clear to auscultation [] Abdomen: Bowel sounds normal, soft, no tenderness, no masses, no pulsatile masses. [] Skin: Warm, dry, no erythema, no rash. [] Back: No tenderness, no CVA tenderness. [] Extremities: No tenderness, no cyanosis, no clubbing, ROM intact, no edema. [] Neurologic: Alert and oriented X 3, normal motor function, normal sensory function, no focal deficits noted. Cranial nerves II through XII intact Psychologic: Affect normal, judgement normal, mood normal. [] Current Patient Data: Labs: Laboratory Tests Test 11/04/20 15:50 11/04/20 16:35 Urine Collection Type Void Urine Color Yellow Urine Clarity Clear Urine pH 6.0 (<5.0-8.0) Urine Specific Ages [place] >=1.030 (1.000-1.030) Urine Protein Negative mg/dL (NEG-TRACE) Urine Glucose (UA) >=1000 mg/dL (NEG) Urine Ketones (Stick) Trace mg/dL (NEG) Urine Blood Negative (NEG) Urine Nitrite Negative (NEG) Urine Bilirubin Negative (NEG) Urine Urobilinogen Dipstick 0.2 mg/dL (0.2 mg/dL) Urine Leukocyte Esterase Negative (NEG) Urine RBC 0 /HPF (0-2) Urine WBC Occ /HPF (0-4) Urine Squamous Epithelial Cells Many /LPF Urine Bacteria Moderate /HPF (0-FEW) Urine Opiates Screen Neg (NEG) Urine Methadone Screen Neg (NEG) Urine Barbiturates Neg (NEG) Urine Phencyclidine Screen Neg (NEG) Urine Amphetamine/Methamphetamine Neg (NEG) Urine Benzodiazepines Screen Neg (NEG) Urine Cocaine Screen Neg (NEG) Urine Cannabinoids Screen Neg (NEG) Urine Ethyl Alcohol Neg (NEG) White Blood Count 8.9 x10^3/uL (4.0-11.0) Red Blood Count 5.01 x10^6/uL (3.50-5.40) Hemoglobin 13.9 g/dL (12.0-15.5) Hematocrit 43.0 % (36.0-47.0) Mean Corpuscular Volume 86 fL (79-100) Mean Corpuscular Hemoglobin 28 pg (25-35) Mean Corpuscular Hemoglobin Concent 32 g/dL (31-37) Red Cell Distribution Width 16.8 % (11.5-14.5) H Platelet Count 302 x10^3/uL (140-400) Neutrophils (%) (Auto) 68 % (31-73) Lymphocytes (%) (Auto) 24 % (24-48) Monocytes (%) (Auto) 6 % (0-9) Eosinophils (%) (Auto) 1 % (0-3) Basophils (%) (Auto) 1 % (0-3) Neutrophils # (Auto) 6.1 x10^3/uL (1.8-7.7) Lymphocytes # (Auto) 2.2 x10^3/uL (1.0-4.8) Monocytes # (Auto) 0.5 x10^3/uL (0.0-1.1) Eosinophils # (Auto) 0.1 x10^3/uL (0.0-0.7) Basophils # (Auto) 0.0 x10^3/uL (0.0-0.2) Sodium Level 142 mmol/L (136-145) Potassium Level 4.1 mmol/L (3.5-5.1) Chloride Level 104 mmol/L (98-107) Carbon Dioxide Level 28 mmol/L (21-32) Anion Gap 10 (6-14) Blood Urea Nitrogen 13 mg/dL (7-20) Creatinine 0.9 mg/dL (0.6-1.0) Estimated GFR (Cockcroft-Gault) 66.0 BUN/Creatinine Ratio 14 (6-20) Glucose Level 185 mg/dL (70-99) H Calcium Level 9.2 mg/dL (8.5-10.1) Magnesium Level 1.6 mg/dL (1.8-2.4) L Total Bilirubin 0.3 mg/dL (0.2-1.0) Aspartate Amino Transferase (AST) 29 U/L (15-37) Alanine Aminotransferase (ALT) 73 U/L (14-59) H Alkaline Phosphatase 81 U/L (46-116) Troponin I Quantitative < 0.017 ng/mL (0.000-0.055) XT-Omh-Q-Type Natriuretic Peptide 21 pg/mL (0-124) Total Protein 7.9 g/dL (6.4-8.2) Albumin 3.9 g/dL (3.4-5.0) Albumin/Globulin Ratio 1.0 (1.0-1.7) Thyroid Stimulating Hormone (TSH) 1.758 uIU/mL (0.358-3.74) Laboratory Tests 11/04/20 16:35 Laboratory Tests 11/04/20 16:35 Vital Signs: Vital Signs Date Time Temp Pulse Resp B/P (MAP) Pulse Ox O2 Delivery O2 Flow Rate FiO2 11/04/20 15:40 98.1 102 18 146/90 (108) 97 Room Air 98.1 EKG: EK interpreted by Dr. Wan sinus rhythm heart rate 88 no STEMI [] Radiology/Procedures: Radiology/Procedures: []PROCEDURE: CHEST AP ONLY XR CHEST 1V 11/04/2020 4:18 PM INDICATION: Chills COMPARISON: 07/05/2020 TECHNIQUE: Portable frontal view of the chest is provided. FINDINGS: The cardiomediastinal silhouette is within normal limits. Lungs are clear. There are no significant pleural effusions. There is no pulmonary vascular congestion. No pneumothorax. No suspicious osseous abnormality. IMPRESSION: There is no acute cardiopulmonary process. Electronically signed by: Natalio Ramos MD (11/04/2020 4:41 PM) [facility] DICTATED and SIGNED BY: NATALIO RAMOS MD DATE: 11/04/20 [id number] Course & Med Decision Making: Course & Med Decision Making Pertinent Labs and Imaging studies reviewed. (See chart for details) This is a 50-year-old female patient presented to the ED today with multiple complaints including headache, chills, facial swelling, symptoms for a week. Airways open. Patient was given Decadron, Benadryl, Pepcid. Feeling better. Cardiac work-up is negative. Patient was also complaining of fungal infection in the right armpit. Nystatin prescription provided. Follow-up with PCP in a week [place] Disclaimer: Dragon Disclaimer: This electronic medical record was generated, in whole or in part, using a voice recognition dictation system. Departure Departure Impression: Primary Impression: Cutaneous candidiasis Additional Impressions: Headache Qualified Codes: R51.9 - Headache, unspecified Environmental allergies Disposition: 01 DC HOME SELF CARE/HOMELESS Condition: STABLE Referrals: CARMEN BARCENAS MD (PCP) follow up in 1-2 weeks Patient Instructions: Allergies, Generic, Natali Infection, Adult, Headache, FAQs Additional Instructions: You were evaluated in the emergency room, your work-up is negative for any acute findings right now. Use the prescribed medications as ordered. Scripts Famotidine (FAMOTIDINE) 20 Mg Tablet 20 MG PO DAILY, #5 TAB Prov: MUTUNGAAGNIESZKA TEACHER DRAMA 11/04/20 Nystatin (NYSTATIN) 15 Gm Cream..g. 1 CATRACHITA TP TID, #30 GM Prov: MUTUNGA,AGNIESZKA TEACHER DRAMA 11/04/20 Prednisone (PREDNISONE) 50 Mg Tablet 1 TAB PO DAILY, #5 TAB Prov: MUTUNGA,AGNIESZKA TEACHER DRAMA 11/04/20 Cetirizine Hcl (ZYRTEC) 10 Mg Tablet 1 TAB PO DAILY, #30 TAB 2 Refills Prov: MUTUNGA,AGNIESZKA TEACHER DRAMA 11/04/20 MUTUNGAAGNIESZKA TEACHER DRAMA Nov 04, 2020 18:55
[2020-11-04] MEDS ORDERED: NYST15CR TP (19:09)
[2020-11-04] MEDS ORDERED: FAMO20TA5 PO (19:09)
[2020-11-04] MEDS ORDERED: PRED50TA PO (19:09)
[2020-11-04] MEDS ORDERED: CETI10TA74 PO (19:09)
== END 2020-11-04 19:26 | disposition home or self-care (01) ==
LOC: ER 15:30
DX: B37.89 Other sites of candidiasis (principal); R51.9 Headache, unspecified; R60.0 Localized edema; E78.00 Pure hypercholesterolemia, unspecified; E11.9 Type 2 diabetes mellitus without complications; I10 Essential (primary) hypertension; Z90.710 Acquired absence of both cervix and uterus; Z98.51 Tubal ligation status; Z98.890 Other specified postprocedural states
CPT/HCPCS: 36415; 71045; 80053; 80307; 81001; 83735; 83880; 84443; 84484; 85025; 87086; 93005; 96374; 96375; 99285; J1100; J1885; J2270; J3490; Q0163

== ENCOUNTER 2021-01-16 16:41 | Observation (INO) | payer MEDICAID ==
[~2021-01-16] VITALS: Ht 162.6 cm; Wt 112.6 kg
[~2021-01-16 16:41] MED LIST changes: +CETI10TA74 PO; +FAMO20TA5 PO; +NYST15CR TP; +PRED50TA PO
--- NOTE | 2021-01-16 16:48 | PHYS DOC ---
Past Medical History Past Medical History: Diabetes-Type II, High Cholesterol, Hypertension Past Surgical History: , Hysterectomy, Tubal ligation Smoking Status: Never Smoker Alcohol Use: None Drug Use: None General Adult EDM: Chief Complaint: CHEST PAIN HPI: HPI: This is a pleasant 50-year-old female presenting the emergency department today with chest pain. It started over the past 48 hours. It is a sharp shooting pain in the right side of the chest which is radiating up into the neck. It is moderate and worse with breathing. No alleviating factors. She has not taken any medications for it. She denies unilateral leg swelling or history of DVT or PE. She does have a history of diabetes hypertension and hyperlipidemia. She does not smoke. She denies hemoptysis or recent immobilization. Review of systems negative for abdominal pain vomiting diaphoresis fevers chills. All other review of systems negative. Heart Score: C/O Chest Pain: Yes HEART Score for Chest Pain: HEART Score for Chest Pain Response (Comments) Value History Moderately Suspicious 1 ECG Nonspecific Repolarizatio 1 Age >45 - < 65 1 Risk Factors >3 Risk Factors or Hx CAD 2 Troponin < Normal Limit 0 Total 5 Risk Factors: Risk Factors: DM, Current or recent (<one month) smoker, HTN, HLP, family history of CAD, obesity. Risk Scores: Score 0 - 3: 2.5% MACE over next 6 weeks - Discharge Home Score 4 - 6: 20.3% MACE over next 6 weeks - Admit for Clinical Observation Score 7 - 10: 72.7% MACE over next 6 weeks - Early Invasive Strategies Allergies: Allergies: Allergies Coded Allergies Type Severity Reaction Last Updated Verified No Known Drug Allergies 12/28/19 No Physical Exam: PE: Constitutional: Well developed, well nourished, no acute distress, non-toxic appearance. [] HENT: Normocephalic, atraumatic, bilateral external ears normal, oropharynx moist, no oral exudates, nose normal. [] Eyes: PERRLA, EOMI, conjunctiva normal, no discharge. [] Neck: Normal range of motion, no tenderness, supple, no stridor. [] Cardiovascular:Heart rate regular rhythm, no murmur [] Lungs & Thorax: Bilateral breath sounds clear to auscultation [] Abdomen: Bowel sounds normal, soft, no tenderness, no masses, no pulsatile antonio s. [] Skin: Warm, dry, no erythema, no rash. [] Back: No tenderness, no CVA tenderness. [] Extremities: No tenderness, no cyanosis, no clubbing, ROM intact, no edema. [] Neurologic: Alert and oriented X 3, normal motor function, normal sensory function, no focal deficits noted. [] Psychologic: Affect normal, judgement normal, mood normal. [] EKG: EKG: EKG shows sinus rhythm with a regular rate. ST segments congruent. Not suggestive of acute ischemia. [] Radiology/Procedures: Radiology/Procedures: [] Course & Med Decision Making: Course & Med Decision Making Pertinent Labs and Imaging studies reviewed. (See chart for details) [] 50-year-old female presenting with chest pain. EKG unremarkable. Troponin and D-dimer within normal months. Chest x-ray unremarkable. Given heart score we will admit for chest pain rule out and cardiology consultation and serial troponins. Dragon Disclaimer: [place] Disclaimer: This electronic medical record was generated, in whole or in part, using a voice recognition dictation system. Departure Departure Impression: Primary Impression: CHEST PAIN, UNSPECIFIED Disposition: ADMITTED INPATIENT Admitting Physician: GARDENIA Condition: STABLE Referrals: CARMEN BARCENAS MD (PCP) HEIKE DHILLON MD January 16, 2021 16:48
--- NOTE | 2021-01-16 17:19 | RAD ---
EXAM: Chest, single view. HISTORY: Chest pain. COMPARISON: 11/04/2020 FINDINGS: A frontal view of the chest is obtained. There is no infiltrate, pleural effusion or pneumo thorax. The heart is normal in size. IMPRESSION: No acute pulmonary finding. Electronically signed by: Arlette Genao MD (01/16/2021 5:16 PM) [id number]
[2021-01-16 17:36] LABS: BASO # 0.1 x10^3/uL (0.0-0.2); BASO % 1 % (0-3); EOS # 0.1 x10^3/uL (0.0-0.7); EOS % 1 % (0-3); HEMATOCRIT 37.2 % (36.0-47.0); HEMOGLOBIN 12.3 g/dL (12.0-15.5); LYMPH # 2.3 x10^3/uL (1.0-4.8); LYMPH % 26 % (24-48); MEAN CORPUSCULAR HEMOGLOBIN 28 pg (25-35); MEAN CORPUSCULAR HGB CONC 33 g/dL (31-37); MEAN CORPUSCULAR VOLUME 85 fL (79-100); MONO # 0.5 x10^3/uL (0.0-1.1); MONO % 6 % (0-9); NEUT % 67 % (31-73); PLATELET COUNT 259 x10^3/uL (140-400); RED BLOOD COUNT 4.39 x10^6/uL (3.50-5.40); RED CELL DISTRIBUTION WIDTH 16.7 % (11.5-14.5)
[2021-01-16 17:48] LABS: CALCIUM 8.4 mg/dL (8.5-10.1); CREATININE 0.8 mg/dL (0.6-1.0); GFR 75.6; POTASSIUM 3.7 mmol/L (3.5-5.1)
[2021-01-16 17:54] LABS: ALBUMIN 3.7 g/dL (3.4-5.0); DIRECT BILIRUBIN 0.1 mg/dL (0.0-0.2); TOTAL BILIRUBIN 0.3 mg/dL (0.2-1.0)
--- NOTE | 2021-01-16 18:17 | EKG ---
[facility] [address] [place] [address] Test Date: 2021-01-16 Test Time: 16:48:25 Pat Name: DIANE MONZON Department: Room: Gender: F Cultural Historian: : 1970 Requested By: HEIKE DHILLON Order Number: [id number] Reading MD: Terrance Diaz MD Measurements Intervals [place] Rate: 94 P: 34 TN: 138 QRS: 11 QRSD: 82 T: 6 QT: 348 QTc: 435 Interpretive Statements SINUS RHYTHM Electronically Signed On 01-17-2021 11:45:59 CDT by Terrance Diaz MD
[2021-01-16 20:27] VITALS: BP 154/95
--- NOTE | 2021-01-16 20:40 | NUR ---
Pt arrived to room 263 per cart, pt ambulated to room from cart The patient, DIANE MONZON, 50 y/o, F admitted by CARMEN BARCENAS MD, was given written information regarding hospital policies, unit procedures and contact persons. Valuables were checked and left with pt. Call light in reach will resume care and continue to monitor pt.
[2021-01-16] MEDS ORDERED: HYDR12.58 PO (21:07)
[2021-01-16] MEDS ORDERED: DULA0.75 SQ (21:07)
[2021-01-16] MEDS ORDERED: INSU100I13 SQ (21:29)
[2021-01-16] MEDS: INSULIN GLARGINE SYRINGE. SQ SCH (21:58)
[2021-01-16] MEDS: ATORVASTATIN CALCIUM 40 MG TABLET. PO SCH (21:58)
[2021-01-16] MEDS: MORPHINE SULFATE 2 MG/ML VIAL. IV PRN (21:59)
[2021-01-16 23:00] VITALS: BP 123/78
[2021-01-17] MEDS: MORPHINE SULFATE 2 MG/ML VIAL. IV PRN ×2 (01:36→19:24)
[2021-01-17 03:00] VITALS: BP 129/83
[2021-01-17] MEDS: PANTOPRAZOLE 40 MG TABLET.DR. PO SCH (05:51)
[2021-01-17 06:00] LABS: BASO % 0 % (0-3); EOS # 0.1 x10^3/uL (0.0-0.7); EOS % 1 % (0-3); HEMATOCRIT 36.6 % (36.0-47.0); HEMOGLOBIN 11.9 g/dL (12.0-15.5); LYMPH # 2.9 x10^3/uL (1.0-4.8); LYMPH % 34 % (24-48); MEAN CORPUSCULAR HEMOGLOBIN 28 pg (25-35); MEAN CORPUSCULAR HGB CONC 33 g/dL (31-37); MEAN CORPUSCULAR VOLUME 85 fL (79-100); MONO # 0.6 x10^3/uL (0.0-1.1); MONO % 7 % (0-9); NEUT # 4.8 x10^3/uL (1.8-7.7); NEUT % 57 % (31-73); PLATELET COUNT 249 x10^3/uL (140-400); RED BLOOD COUNT 4.29 x10^6/uL (3.50-5.40); RED CELL DISTRIBUTION WIDTH 16.7 % (11.5-14.5); WHITE BLOOD COUNT 8.5 x10^3/uL (4.0-11.0)
[2021-01-17 06:31] LABS: ALBUMIN 3.7 g/dL (3.4-5.0); ALBUMIN/GLOBULIN RATIO 1.2 (1.0-1.7); CALCIUM 8.5 mg/dL (8.5-10.1); CREATININE 0.7 mg/dL (0.6-1.0); GFR 88.2; POTASSIUM 3.5 mmol/L (3.5-5.1); TOTAL BILIRUBIN 0.3 mg/dL (0.2-1.0); TOTAL PROTEIN 6.7 g/dL (6.4-8.2)
[2021-01-17 07:00] VITALS: BP 114/70
[2021-01-17] MEDS: INSULIN LISPRO 300 UNITS/3 ML VIAL. SQ SCH ×3 (08:00→17:00)
--- NOTE | 2021-01-17 08:03 | PDOC1 ---
H & P. DATE OF SERVICE: DATE: 01/17/21 TIME: 07:57 HPI: Ms. Shaikh is a 50 yo Italian speaking female with past medical history of type 2 diabetes which is well controlled, hypertension, hyperlipidemia, GERD, morbid obesity, hx of schatzki's ring, who presented to the emergency room yesterday evening for chest pain of 2 to 3-day duration, constant, located in the left side of the chest, substernal, which radiates to the neck and the left arm intermittently. She describes the pain as sometimes pressure, sometimes burning, sometimes sharp. Labs in the emergency room were remarkable for negative troponins x3, chest x-ray was unremarkable, EKG was unremarkable for acute changes. She had an echo in July 2020 which was essentially normal with an EF of 55%. She has had a cardiac cath in 2018 which was generally unremarkable. She was admitted for further evaluation management with cardiac consultation. This AM she notes that her pain was improved with nitro. ROS: Constitutional: Denies fever, fatigue, chills HEENT: Denies sore throat, vision changes Cardio: Admits chest pain, dyspnea with exertion, deneis syncope, palpitations, edema Pulmonary: Admits intermittent shortness of breath; denies cough, wheezing GI: Denies nausea, vomiting, diarrhea, constipation : Denies dysuria, frequency, urgency, incontinence Skin: Denies new lesions Neuro: Denies weakness, paresthesias PMH: As above FAMILY HX: Noncontributory SOCIAL HX: Never smoker, no alcohol or drug use. SURGICAL HX: History of x5. MEDS: Reviewed and reconciled ALLERGIES: Reviewed PE: Alert, oriented, no acute distress EOMI, sclera non-icteric Neck supple RRR CTAB, no wheezes Soft, NT, ND, normal bowel sounds No edema, cyanosis. Normal capillary refill. Calm, cooperative, mood/affect within normal limits ASSESSMENT & PLAN: Chest pain, some typical and atypical features Type 2 diabetes, well controlled Hypertension Hyperlipidemia GERD History of Schatzki's ring Morbid obesity Cardiology has been consulted to eval Pending COVID test Possible GI related pain, on PPI, will test for Hpylori also Justifications for Admission Other Justification CARMEN BARCENAS MD January 17, 2021 08:03
[2021-01-17] MEDS: CETIRIZINE HCL 10 MG TABLET. PO SCH (08:45)
[2021-01-17] MEDS: metFORMIN 500 MG TABLET PO SCH ×2 (08:45→08:51)
[2021-01-17] MEDS ORDERED: hydroCHLOROthiazide 12.5 MG CAPSULE PO SCH (09:00)
[2021-01-17] MEDS: NITROGLYCERIN SUBLINGUAL 0.4 MG BOTTLE OF 25. SL PRN ×2 (09:11→14:00)
[2021-01-17 11:00] VITALS: BP 113/74
--- NOTE | 2021-01-17 11:46 | NUR ---
pt had reported chest pain 8/ midsternal radiating up left side. Nitro x 1 given at approx 0911 and pt reported relief from the nitro. pt also received pain medicine and 2L oxygen at that time. Dr. Piper present at this time and aware of the situation as well as also that the pt was npo, insulin aneesh and metformin. fsbs 122.
--- NOTE | 2021-01-17 12:05 | PDOC2 ---
TEGAN ROD ARCHITECTURE TECHNICIAN 01/17/21 1205: CARDIAC CONSULT DATE OF CONSULT Date of Consult DATE: 01/17/21 TIME: 11:59 REASON FOR CONSULT Reason for Consult: Chest pain REFERRING PHYSICIAN Referring Physician: Dr. Rojas SOURCE Source: Chart review, Patient HISTORY OF PRESENT ILLNESS HISTORY OF PRESENT ILLNESS This is a 50 yo female who presented secondary to chest pain. Patient repots acing pain in her central chest over the last couple of days. Has been constant. Worse with deep breathing, certain movements, and with palpation of the central chest. No associated dizziness, diaphoresis, palpitations, or nausea/vomiting. PAST MEDICAL HISTORY Past Medical History Cardiovascular: HTN, Hyperlipidemia Pulmonary: No pertinent hx CENTRAL NERVOUS SYSTEM: Other (no pertinent hx) GI: No pertinent hx Heme/Onc: No pertinent hx Hepatobiliary: No pertinent hx Psych: No pertinent hx Musculoskeletal: Other (obesity) Rheumatologic: No pertinent hx Infectious disease: No pertinent hx ENT: No pertinent hx Renal/: UTI Endocrine: Diabetes (2), Other (menorrhagia) Dermatology: No pertinent hx PAST SURGICAL HISTORY Past Surgical History , Tubal Ligation, Tonsillectomy FAMILY HISTORY Family History: Hypertension SOCIAL HISTORY Social History Smoke: No ALCOHOL: none Drugs: None Lives: with Family CURRENT MEDICATIONS CURRENT MEDICATIONS Current Medications Medications (Trade) Dose Ordered Sig/Asha Route PRN Reason Start Time Stop Time Status Last Admin Dose Admin Nitroglycerin (Nitrostat) 0.4 mg PRN Q5MIN PRN SL CHEST PAIN 01/16/21 21:30 01/17/21 09:11 Morphine Sulfate (Morphine Sulfate) 2 mg PRN Q2HR PRN IV SEVERE PAIN 7-10 01/16/21 21:30 01/17/21 01:36 Atorvastatin Calcium (Lipitor) 40 mg QHS PO 01/16/21 22:00 01/16/21 21:58 Cetirizine HCl (ZyrTEC) 10 mg DAILY PO 01/17/21 09:00 01/17/21 08:45 Hydrochlorothiazide (Microzide) 12.5 mg DAILY PO 01/17/21 09:00 01/17/21 08:45 Insulin Glargine (Lantus Syringe) 35 unit QHS SQ 01/16/21 22:00 01/16/21 21:58 Metformin HCl (Glucophage) 1,000 mg BIDWMEALS PO 01/17/21 08:00 01/17/21 08:45 Pantoprazole Sodium (Protonix) 40 mg DAILYAC PO 01/17/21 07:30 01/17/21 05:51 ALLERGIES ALLERGIES: Coded Allergies: No Known Drug Allergies (Unverified , 01/16/21) ROS Review of System 14 point ROS conducted with pertinent positives noted above in HPI PHYSICAL EXAM PHYSICAL EXAM General: Alert, Oriented X3, Cooperative, No acute distress HEENT: Atraumatic, Mucous membr. moist/pink Lungs: Clear to auscultation, Normal air movement Heart: Regular rate (SR no ectopies), Normal S1, Normal S2, No murmurs Abdomen: Soft, No tenderness Extremities: No cyanosis, No edema Skin: No breakdown, No significant lesion Neuro: Normal speech, Sensation intact Psych/Mental Status: Mental status NL, Mood NL MUSCULOSKELETAL: Osteoarthritic changes both hands VITALS/I&O VITALS/I&O: Vital Signs Date Time Temp Pulse Resp B/P (MAP) Pulse Ox O2 Delivery O2 Flow Rate FiO2 01/17/21 11:00 97.4 75 16 113/74 (87) 98 Nasal Cannula 2.0 97.4 I & O 01/16/21 01/16/21 01/17/21 15:00 23:00 07:00 Intake Total 120 ml 100 ml Balance 120 ml 100 ml LABS Lab: Laboratory Tests Test 01/16/21 17:25 01/16/21 20:52 01/16/21 21:29 01/17/21 00:55 White Blood Count 9.0 x10^3/uL (4.0-11.0) Red Blood Count 4.39 x10^6/uL (3.50-5.40) Hemoglobin 12.3 g/dL (12.0-15.5) Hematocrit 37.2 % (36.0-47.0) Mean Corpuscular Volume 85 fL (79-100) Mean Corpuscular Hemoglobin 28 pg (25-35) Mean Corpuscular Hemoglobin Concent 33 g/dL (31-37) Red Cell Distribution Width 16.7 % (11.5-14.5) H Platelet Count 259 x10^3/uL (140-400) Neutrophils (%) (Auto) 67 % (31-73) Lymphocytes (%) (Auto) 26 % (24-48) Monocytes (%) (Auto) 6 % (0-9) Eosinophils (%) (Auto) 1 % (0-3) Basophils (%) (Auto) 1 % (0-3) Neutrophils # (Auto) 6.0 x10^3/uL (1.8-7.7) Lymphocytes # (Auto) 2.3 x10^3/uL (1.0-4.8) Monocytes # (Auto) 0.5 x10^3/uL (0.0-1.1) Eosinophils # (Auto) 0.1 x10^3/uL (0.0-0.7) Basophils # (Auto) 0.1 x10^3/uL (0.0-0.2) D-Dimer (Deanne) 0.30 ug/mlFEU (0.00-0.50) Sodium Level 145 mmol/L (136-145) Potassium Level 3.7 mmol/L (3.5-5.1) Chloride Level 106 mmol/L (98-107) Carbon Dioxide Level 28 mmol/L (21-32) Anion Gap 11 (6-14) Blood Urea Nitrogen 13 mg/dL (7-20) Creatinine 0.8 mg/dL (0.6-1.0) Estimated GFR (Cockcroft-Gault) 75.6 Glucose Level 200 mg/dL (70-99) H Calcium Level 8.4 mg/dL (8.5-10.1) L Total Bilirubin 0.3 mg/dL (0.2-1.0) Direct Bilirubin 0.1 mg/dL (0.0-0.2) Aspartate Amino Transferase (AST) 30 U/L (15-37) Alanine Aminotransferase (ALT) 60 U/L (14-59) H Alkaline Phosphatase 63 U/L (46-116) Troponin I Quantitative < 0.017 ng/mL (0.000-0.055) < 0.017 ng/mL (0.000-0.055) < 0.017 ng/mL (0.000-0.055) AQ-Kov-T-Type Natriuretic Peptide 44 pg/mL (0-124) Total Protein 7.0 g/dL (6.4-8.2) Albumin 3.7 g/dL (3.4-5.0) Lipase 296 U/L (73-393) Glucose (Fingerstick) 112 mg/dL (70-99) H Test 01/17/21 03:40 01/17/21 08:48 White Blood Count 8.5 x10^3/uL (4.0-11.0) Red Blood Count 4.29 x10^6/uL (3.50-5.40) Hemoglobin 11.9 g/dL (12.0-15.5) L Hematocrit 36.6 % (36.0-47.0) Mean Corpuscular Volume 85 fL (79-100) Mean Corpuscular Hemoglobin 28 pg (25-35) Mean Corpuscular Hemoglobin Concent 33 g/dL (31-37) Red Cell Distribution Width 16.7 % (11.5-14.5) H Platelet Count 249 x10^3/uL (140-400) Neutrophils (%) (Auto) 57 % (31-73) Lymphocytes (%) (Auto) 34 % (24-48) Monocytes (%) (Auto) 7 % (0-9) Eosinophils (%) (Auto) 1 % (0-3) Basophils (%) (Auto) 0 % (0-3) Neutrophils # (Auto) 4.8 x10^3/uL (1.8-7.7) Lymphocytes # (Auto) 2.9 x10^3/uL (1.0-4.8) Monocytes # (Auto) 0.6 x10^3/uL (0.0-1.1) Eosinophils # (Auto) 0.1 x10^3/uL (0.0-0.7) Basophils # (Auto) 0.0 x10^3/uL (0.0-0.2) Sodium Level 145 mmol/L (136-145) Potassium Level 3.5 mmol/L (3.5-5.1) Chloride Level 106 mmol/L (98-107) Carbon Dioxide Level 29 mmol/L (21-32) Anion Gap 10 (6-14) Blood Urea Nitrogen 11 mg/dL (7-20) Creatinine 0.7 mg/dL (0.6-1.0) Estimated GFR (Cockcroft-Gault) 88.2 BUN/Creatinine Ratio 16 (6-20) Glucose Level 130 mg/dL (70-99) H Calcium Level 8.5 mg/dL (8.5-10.1) Total Bilirubin 0.3 mg/dL (0.2-1.0) Aspartate Amino Transferase (AST) 24 U/L (15-37) Alanine Aminotransferase (ALT) 57 U/L (14-59) Alkaline Phosphatase 60 U/L (46-116) Total Protein 6.7 g/dL (6.4-8.2) Albumin 3.7 g/dL (3.4-5.0) Albumin/Globulin Ratio 1.2 (1.0-1.7) Glucose (Fingerstick) 122 mg/dL (70-99) H Laboratory Tests 01/16/21 17:25 01/17/21 03:40 Laboratory Tests 01/16/21 17:25 01/17/21 03:40 ECHOCARDIOGRAM ECHOCARDIOGRAM <Conclusion> The left ventricle is normal size. The left ventricular systolic function is normal and the ejection fraction is within normal range. The Ejection Fraction is 55-60%. The interatrial septum is intact with no evidence for an atrial septal defect or patent foramen ovale as noted on 2-D or Doppler imaging. Injection of bubbles documented no interatrial shunt. Doppler and Color Flow revealed no significant aortic regurgitation. There is no significant aortic valvular stenosis. Doppler and Color-flow revealed mild mitral regurgitation. Doppler and Color Flow revealed mild tricuspid regurgitation. The PA pressure was estimated at 33 mmHg. DATE: 07/06/20 1331 STRESS TEST STRESS TEST Conclusion 1. No EKG evidence of inducible ischemia. 2. Nuclear images suggest a small area of reversible ischemia in the distal anterior region. 3. Normal left ventricular systolic function with an ejection fraction of greater than 70%. 4. Mildly abnormal Lexiscan suggesting a small area of distal anterior ischemia and normal left ventricular systolic function. DATE: 03/01/14 1652 HEART CATH HEART CATH CORONARY ANGIOGRAPHY: LM is a large caliber vessel with normal angiographic appearance. LAD is a large caliber vessel with normal angiographic appearance. Ramus is a moderate caliber vessel with normal angiographic apeparance. LCx is a moderate caliber non-dominant vessel with normal angiographic appearance. OM1 is a moderate caliber vessel with normal angiographic appearance. RCA is a large caliber dominant vessel with normal angiographic appearance. RPDA is a small caliber vessel with normal angiographic appearance. Conclusion 1. Normal left sided filling pressures. 2. Hyperdynamic LV function. EF > 70% 3. Normal angiographic appearance of the coronary arteries. Recommendations Aggressive Medical Therapy DATE: 07/26/18 1033 ASSESSMENT/PLAN ASSESSMENT/PLAN 1. Chest pain, atypical. AMI ruled out. Recent echo with preserved LV systolic function. Cath 07/18 with normal angiographic appearance of the coronary ar teries as noted above 2. Hypertension; controlled 3. Hyperlipidemia; statin therapy 4. Diabetes, II 5. Morbid obesity 6. PUI; COVID pending Recommendations Discontinue HCTZ Will add imdur. Outpatient ischemic evaluation Follow up in our office with Dr. Diaz as scheduled RAMAN DIAZ MD 01/18/21 1651: CARDIAC CONSULT ASSESSMENT/PLAN ASSESSMENT/PLAN Late entry for 01/17/21 The patient was seen and interviewed as well as examined at the bedside. The chart was reviewed. The case was discussed. Agree with the plan of care. TEGAN ROD APRN January 17, 2021 12:05 RAMAN DIAZ MD January 18, 2021 16:51
--- NOTE | 2021-01-17 13:22 | NUR ---
SS following for discharge planning. SS reviewed pt chart and discussed with pt RN. Pt is from home and is currently on room air. Cardiology following. SS will continue to follow for discharge planning.
[2021-01-17 15:00] VITALS: BP 113/64
[2021-01-17 19:10] VITALS: BP 109/67
--- NOTE | 2021-01-17 19:10 | NUR ---
Pt in bed assessment completed vss pt c/o pain 04/09 midchest and abdomen will medicate pt poc explain to pt and family at bedside will resume care and continue to monitor pt call light in reach.
[2021-01-17] MEDS: INSULIN GLARGINE SYRINGE. SQ SCH (20:47)
[2021-01-17] MEDS: ATORVASTATIN CALCIUM 40 MG TABLET. PO SCH (20:47)
[2021-01-17 22:58] VITALS: BP 102/56
[2021-01-18 02:47] VITALS: BP 123/74
[2021-01-18] MEDS: PANTOPRAZOLE 40 MG TABLET.DR. PO SCH (06:09)
[2021-01-18 07:00] VITALS: BP 124/80
[2021-01-18] MEDS ORDERED: ISOS30TA68 PO (07:34)
[2021-01-18 08:15] LABS: CHOLESTEROL/HDL RATIO 3.9
[2021-01-18] MEDS ORDERED: ISOSORBIDE MONONITRATE ER 30 MG TAB.ER.24H PO SCH (09:00)
[2021-01-18] MEDS: CETIRIZINE HCL 10 MG TABLET. PO SCH (10:30)
[2021-01-18] MEDS: metFORMIN 500 MG TABLET PO SCH (10:30)
[2021-01-18] MEDS: INSULIN LISPRO 300 UNITS/3 ML VIAL. SQ SCH ×2 (10:39→12:39)
[2021-01-18 11:00] VITALS: BP 114/71
--- NOTE | 2021-01-18 13:17 | NUR ---
SS following up with discharge planning. SS reviewed pt chart and discussed with pt RN. Pt is from home with spouse and is currently on room air. Discharge order on the chart for home with self care.
--- NOTE | 2021-01-18 16:10 | PDOC ---
CARDIO Progress Notes Date and Time Date of Service 01/18/2021 Time of Evaluation 1305 Subjective Subjective: No Chest Pain, No shortness of breath, No Palpitations Vitals Vitals Vital Signs Date Time Temp Pulse Resp B/P (MAP) Pulse Ox O2 Delivery O2 Flow Rate FiO2 01/18/21 11:00 97.3 86 18 114/71 (85) 95 Room Air 97.3 01/17/21 19:54 2.0 Weight Weight [ ] Input and Output Intake and Output Intake and Output 01/18/21 07:00 Intake Total 640 ml Balance 640 ml Intake Oral 640 ml # Voids 2 Laboratory Labs Laboratory Tests Test 01/17/21 18:31 01/17/21 20:08 01/18/21 07:20 01/18/21 07:57 Glucose (Fingerstick) 233 mg/dL (70-99) 211 mg/dL (70-99) 155 mg/dL (70-99) Triglycerides Level 132 mg/dL (0-150) Cholesterol Level 134 mg/dL (0-200) LDL Cholesterol, Calculated 74 mg/dL (0-100) VLDL Cholesterol, Calculated 26 mg/dL (0-40) Non-HDL Cholesterol Calculated 100 mg/dL (0-129) HDL Cholesterol 34 mg/dL (40-60) Cholesterol/HDL Ratio 3.9 Test 01/18/21 11:38 Glucose (Fingerstick) 272 mg/dL (70-99) Physical Exam HEENT: Neck Supple W Full Motion Chest: Symmetric LUNGS: Clear to Auscultation Heart: S1S2, RRR (SR) Abdomen: Soft N/T Extremities: No Edema, No Calf Tenderness Neurology: alert, oriented, follow commands Assessment Assessment 1. Chest pain, atypical. AMI ruled out. Recent echo with preserved LV systolic function. Cath 07/18 with normal angiographic appearance of the coronary arteries as noted above 2. Hypertension; controlled 3. Hyperlipidemia; statin therapy 4. Diabetes, II 5. Morbid obesity 6. PUI; negative rapid test Recommendations CP better with imdur. Tolerated ambulation around unit Continue current regimen Outpatient ischemic evaluation Follow up in our office with Dr. Diaz as scheduled. December today Justicifation of Admission Dx: Justifications for Admission: Justification of Admission Dx: N/A MESERET BARRIENTOS APRN January 18, 2021 16:10
--- NOTE | 2021-01-21 08:18 | PDOC3 ---
Discharge Summary Date of Admission: January 17, 2021 Date of Discharge: January 18, 2021 Follow-Up: 3-5 days FINAL DIAGNOSIS Chest pain Brief Hospital Course Ms. Shaikh is a 50-year-old female with past medical history of type 2 diabetes which is well controlled, hypertension, hyperlipidemia, GERD, morbid obesity, hx of schatzki's ring, who presented to the emergency room for chest pain of 2 to 3-day duration, constant, located in the left side of the chest, substernal, which radiates to the neck and the left arm intermittently. She described the pain as sometimes pressure, sometimes burning, sometimes sharp. Labs in the emergency room were remarkable for negative troponins x3, chest x- ray was unremarkable, EKG was unremarkable for acute changes. She had an echo in July 2020 which was essentially normal with an EF of 55%. She had a cardiac cath in 2017 which was generally unremarkable. During admission, she noted that pain improved with nitro. Cardiology was consulted and recommended pt stop HCTZ and change to Isosorbide mononitrate. She will have an outpatient ischemic evaluation. Pt will also have an outpatient evaluation with GI as it is likely that pain may be related to her hx of schatzki's ring. No other medications were changed. She will follow up in clinic next week. CONDITION AT DISCHARGE: Improved, Stable Discharge Medications Current Medications Nitroglycerin (Nitrostat) 0.4 mg PRN Q5MIN PRN SL CHEST PAIN Last administered on 01/17/21at 14:00; Start 01/16/21 at 21:30; Stop 01/18/21 at 14:38; Status DC Morphine Sulfate (Morphine Sulfate) 2 mg PRN Q2HR PRN IV SEVERE PAIN 7-10 Last administered on 01/17/21at 19:24; Start 01/16/21 at 21:30; Stop 01/18/21 at 14:38; Status DC Atorvastatin Calcium (Lipitor) 40 mg QHS PO Last administered on 01/17/21at 20:47; Start 01/16/21 at 22:00; Stop 01/18/21 at 14:38; Status DC Cetirizine HCl (ZyrTEC) 10 mg DAILY PO Last administered on 01/18/21at 10:30; Start 01/17/21 at 09:00; Stop 01/18/21 at 14:38; Status DC Hydrochlorothiazide (Microzide) 12.5 mg DAILY PO Last administered on 01/17/21at 08:45; Start 01/17/21 at 09:00; Stop 01/17/21 at 16:35; Status DC Insulin Human Lispro (HumaLOG) 12 units TIDWMEALS SQ Last administered on 01/18/21at 12:39; Start 01/17/21 at 08:00; Stop 01/18/21 at 14:38; Status DC Insulin Glargine (Lantus Syringe) 35 unit QHS SQ Last administered on 01/17/21at 20:47; Start 01/16/21 at 22:00; Stop 01/18/21 at 14:38; Status DC Metformin HCl (Glucophage) 1,000 mg BIDWMEALS PO Last administered on 01/18/21at 10:30; Start 01/17/21 at 08:00; Stop 01/18/21 at 14:38; Status DC Pantoprazole Sodium (Protonix) 40 mg DAILYAC PO Last administered on 01/18/21at 06:09; Start 01/17/21 at 07:30; Stop 01/18/21 at 14:38; Status DC Isosorbide Mononitrate (Imdur) 30 mg DAILY PO Last administered on 01/18/21at 10:31; Start 01/18/21 at 09:00; Stop 01/18/21 at 14:38; Status DC Active Scripts Active Isosorbide Mononitrate Er (Isosorbide Mononitrate) 30 Mg Tab.er.24h 30 Mg PO DAILY 30 Days Zyrtec (Cetirizine Hcl) 10 Mg Tablet 1 Tab PO DAILY Reported Trulicity (Dulaglutide) 0.75 Mg/0.5 Ml Pen.injctr 0.5 Ml SQ WEEKLY weekly on Lantus Solostar (Insulin Glargine,Hum.rec.anlog) 100 Unit/1 Ml Insuln.pen 35 Unit SQ QHS Omeprazole 40 Mg Capsule.dr 40 Mg PO DAILY Glucophage (Metformin Hcl) 1,000 Mg Tablet 1,000 Mg PO BIDWMEALS Atorvastatin Calcium 40 Mg Tablet 40 Mg PO DAILY Novolog Flexpen (Insulin Aspart) 100 Unit/1 Ml Insuln.pen 12 Units SQ TIDWMEALS Allergies Allergies Coded Allergies Type Severity Reaction Last Updated Verified No Known Drug Allergies 01/16/21 No Disposition/Orders: D/C to Home Justicifation of Admission Dx: Justifications for Admission: Justification of Admission Dx: N/A CARMEN BARCENAS MD January 21, 2021 08:18
== END 2021-01-18 13:55 | disposition home or self-care (01) ==
LOC: ER 16:41 → 2 SOUTH 19:31
PROVIDERS: ADMIT Family Medicine; ATTEND Family Medicine
DX: R07.89 Other chest pain (principal); Z20.822 Contact with and (suspected) exposure to COVID-19; I10 Essential (primary) hypertension; I25.10 Atherosclerotic heart disease of native coronary artery without angina pectoris; E11.9 Type 2 diabetes mellitus without complications; K21.9 Gastro-esophageal reflux disease without esophagitis; E78.00 Pure hypercholesterolemia, unspecified; E78.5 Hyperlipidemia, unspecified; E66.01 Morbid (severe) obesity due to excess calories; Z87.891 Personal history of nicotine dependence; Z90.710 Acquired absence of both cervix and uterus; Z98.891 History of uterine scar from previous surgery; Z98.51 Tubal ligation status; Z87.440 Personal history of urinary (tract) infections; Z79.4 Long term (current) use of insulin; Z68.41 Body mass index [BMI] 40.0-44.9, adult
CPT/HCPCS: 36415; 71045; 80048; 80053; 80061; 80076; 82962; 83690; 83880; 84484; 85025; 85379; 87338; 93005; 96372; 96374; 96375; 96376; 99285; G0378; J1815; J2270; U0003; U0005; G0379

== ENCOUNTER → 2021-07-05 | Outpatient (CLI) | payer MEDICAID ==
[~2021-07-05] MED LIST changes: +DULA0.75 SQ; +HYDR12.58 PO; +ISOS30TA68 PO; -OMEP40CA45 PO; +OMEP40CA7 PO
--- NOTE | 2021-07-05 14:13 | RAD ---
XR SHOULDER_RIGHT 2+ VIEWS DATE: 07/05/2021 12:32 PM INDICATION: ACUTE PAIN OF RIGHT SHOULDER. COMPARISON: None. FINDINGS: Bones: There is no evidence of acute fracture or dislocation. Joints: The joint spaces are normal. The acromiohumeral distance is not narrowed. Miscellaneous: No abnormal soft tissue calcifications in the shoulder. IMPRESSION: No acute fracture. Electronically signed by: Jaden Urbina MD (07/05/2021 2:10 PM) JOY
== END ==
LOC: RAD 12:26
PROVIDERS: ATTEND Family Medicine
DX: M25.511 Pain in right shoulder (principal)
CPT/HCPCS: 73030

== ENCOUNTER → 2021-07-23 | Outpatient (CLI) | payer MEDICAID ==
--- NOTE | 2021-07-30 11:15 | SLEEP ---
DATE OF STUDY: 07/23/2021 HOME SLEEP STUDY ATTENDING PHYSICIAN: Dr. Barcenas. The patient is 51 years old who weighs 246 pounds with a BMI of 38.5. The patient's Coyote score was 13. The patient underwent home sleep study performed at [facility]. Total recording time was 582 minutes. During the night of study, the patient had 22 obstructive apneas, 4 central apneas, 11 mixed apneas and 41 hypopneas. The patient's AHI was 8.9 per hour. The patient's oxygen saturations remained on an average of 92% with a lowest of 84%. 37 minutes were spent with oxygen saturation less than 90%. Mean heart rate 81 beats per minute. IMPRESSION: 1. Mild obstructive sleep apnea at an AHI of 8.9 per hour. 2. Nocturnal hypoxia secondary to obstructive sleep apnea. RECOMMENDATIONS: 1. The patient would benefit from treatment of sleep apnea with CPAP. 2. Once the patient is optimally treated, then follow up in 4-6 weeks to assess compliance and to document clinical improvement. 3. Weight loss is advised. 4. Avoid STOCK WORKER depressants. 5. Cautioned regarding driving until symptoms of sleep apnea have resolved with above recommendations. FITO DR: Aamir TID: [id number] CC: CARMEN BARCENAS MD
== END ==
LOC: RT 10:56
PROVIDERS: ATTEND Family Medicine
DX: G47.33 Obstructive sleep apnea (adult) (pediatric) (principal); G47.34 Idiopathic sleep related nonobstructive alveolar hypoventilation; R06.83 Snoring
CPT/HCPCS: G0399

== ENCOUNTER 2021-09-19 12:34 | Emergency (ER) | payer MEDICAID ==
[~2021-09-19] VITALS: Ht 167.6 cm; Wt 105.0 kg
[2021-09-19 12:48] VITALS: BP 138/70
[2021-09-19] MEDS ORDERED: IV NORMAL SALINE 1000ML BAG 1,000 ML IV ONE (13:00)
[2021-09-19] MEDS ORDERED: IBUPROFEN 200 MG TABLET. PO ONE (13:30)
[2021-09-19 13:42] LABS: BASO % 0 % (0-3); EOS % 0 % (0-3); HEMATOCRIT 46.5 % (36.0-47.0); HEMOGLOBIN 15.1 g/dL (12.0-15.5); LYMPH % 23 % (24-48); MEAN CORPUSCULAR HEMOGLOBIN 28 pg (25-35); MEAN CORPUSCULAR HGB CONC 33 g/dL (31-37); MEAN CORPUSCULAR VOLUME 85 fL (79-100); MONO # 0.7 x10^3/uL (0.0-1.1); MONO % 8 % (0-9); NEUT % 69 % (31-73); PLATELET COUNT 280 x10^3/uL (140-400); RED CELL DISTRIBUTION WIDTH 17.1 % (11.5-14.5); WHITE BLOOD COUNT 8.7 x10^3/uL (4.0-11.0)
--- NOTE | 2021-09-19 13:45 | RAD ---
Exam Date: 09/19/2021 1:19 PM XR CHEST 2V Indication: Reason: cough / Spl. Instructions: / History: . Comparison: January 16, 2021 FINDINGS/ IMPRESSION: The cardiac silhouette and pulmonary vasculature are within normal limits. There is no focal consolidation, pleural effusion or pneumothorax. Degenerative changes are seen in the spine. Electronically signed by: Ten Molina MD (09/19/2021 1:43 PM) [id number]
[2021-09-19 13:51] LABS: CALCIUM 9.2 mg/dL (8.5-10.1); CREATININE 0.8 mg/dL (0.6-1.0); GFR 75.3; POTASSIUM 4.2 mmol/L (3.5-5.1)
[2021-09-19 13:58] LABS: INFLUENZA A PATIENT NEGATIVE (NEGATIVE); INFLUENZA B PATIENT NEGATIVE (NEGATIVE)
--- NOTE | 2021-09-19 14:09 | PHYS DOC ---
Past Medical History Past Medical History: Diabetes-Type II, High Cholesterol, Hypertension Past Surgical History: No Surgical History Smoking Status: Never Smoker Alcohol Use: None Drug Use: None General Adult EDM: Chief Complaint: FLU SYMPTOM HPI: HPI: Patient is a 51 year old female who presents with cough, fever, nausea/vomiting x4 days. Patient reports taking ibuprofen this morning for body aches. Patient reports pain with coughing and taking a deep breath. Denies shortness of breath. Patient states that her is also sick with the same symptoms. Patient was vaccinated for COVID x1. Patient has a history of hypertension, hyperlipidemia, diabetes. Review of Systems: Review of Systems: ROS At least 10 ROS systems have been reviewed and are negative except as documented in the HPI. General: Negative except as outlined in HPI above. Skin: Negative except as outlined in HPI above. HEENT: Negative except as outlined in HPI above. Neck: Negative except as outlined in HPI above. Respiratory: Negative except as outlined in HPI above.. Cardiovascular: Negative except as outlined in HPI above. Abdomen: Negative except as outlined in HPI above. : Negative except as outlined in HPI above. Back/MSK: Negative except as outlined in HPI above. Neuro: Negative except as outlined in HPI above. Psych: Negative except as outlined in HPI above. Heart Score: C/O Chest Pain: No Risk Factors: Risk Factors: DM, Current or recent (<one month) smoker, HTN, HLP, family history of CAD, obesity. Risk Scores: Score 0 - 3: 2.5% MACE over next 6 weeks - Discharge Home Score 4 - 6: 20.3% MACE over next 6 weeks - Admit for Clinical Observation Score 7 - 10: 72.7% MACE over next 6 weeks - Early Invasive Strategies Current Medications: Current Medications Medications (Trade) Dose Ordered Sig/Asha Start Time Stop Time Status Last Admin Dose Admin Ibuprofen (Motrin) 600 mg 1X ONCE 09/19/21 13:30 09/19/21 13:31 DC 09/19/21 13:30 600 MG Sodium Chloride 1,000 ml @ 1,000 mls/hr 1X ONCE 09/19/21 13:00 09/19/21 13:59 09/19/21 13:00 1,000 MLS/HR Allergies: Allergies: Allergies Coded Allergies Type Severity Reaction Last Updated Verified No Known Drug Allergies 09/19/21 No Physical Exam: PE: Constitutional: Well developed, well nourished, no acute distress, non-toxic appearance. [] HENT: Normocephalic, atraumatic, bilateral external ears normal, oropharynx moist, no oral exudates, nose normal. [] Eyes: PERRLA, EOMI, conjunctiva normal, no discharge. [] Neck: Normal range of motion, no tenderness, supple, no stridor. [] Cardiovascular: Sinus tachycardia, no murmur Lungs & Thorax: Bilateral breath sounds clear to auscultation [] Abdomen: Bowel sounds normal, soft, no tenderness, no masses, no pulsatile masses. [] Skin: Warm, dry, no erythema, no rash. [] Back: No tenderness, no CVA tenderness. [] Extremities: No tenderness, no cyanosis, no clubbing, ROM intact, no edema. [] Neurologic: Alert and oriented X 3, normal motor function, normal sensory f unction, no focal deficits noted. [] Psychologic: Affect normal, judgement normal, mood normal. [] Current Patient Data: Labs: Laboratory Tests Test 09/19/21 13:30 09/19/21 13:35 Sodium Level 138 mmol/L (136-145) Potassium Level 4.2 mmol/L (3.5-5.1) Chloride Level 102 mmol/L (98-107) Carbon Dioxide Level 24 mmol/L (21-32) Anion Gap 12 (6-14) Blood Urea Nitrogen 13 mg/dL (7-20) Creatinine 0.8 mg/dL (0.6-1.0) Estimated GFR (Cockcroft-Gault) 75.3 Glucose Level 122 mg/dL (70-99) H Calcium Level 9.2 mg/dL (8.5-10.1) Magnesium Level 2.0 mg/dL (1.8-2.4) Influenza Type A Antigen Negative (NEGATIVE) Influenza Type B Antigen Negative (NEGATIVE) SARS-CoV-2 Antigen (Rapid) Negative (NEGATIVE) White Blood Count 8.7 x10^3/uL (4.0-11.0) Red Blood Count 5.50 x10^6/uL (3.50-5.40) H Hemoglobin 15.1 g/dL (12.0-15.5) Hematocrit 46.5 % (36.0-47.0) Mean Corpuscular Volume 85 fL (79-100) Mean Corpuscular Hemoglobin 28 pg (25-35) Mean Corpuscular Hemoglobin Concent 33 g/dL (31-37) Red Cell Distribution Width 17.1 % (11.5-14.5) H Platelet Count 280 x10^3/uL (140-400) Neutrophils (%) (Auto) 69 % (31-73) Lymphocytes (%) (Auto) 23 % (24-48) L Monocytes (%) (Auto) 8 % (0-9) Eosinophils (%) (Auto) 0 % (0-3) Basophils (%) (Auto) 0 % (0-3) Neutrophils # (Auto) 6.0 x10^3/uL (1.8-7.7) Lymphocytes # (Auto) 2.0 x10^3/uL (1.0-4.8) Monocytes # (Auto) 0.7 x10^3/uL (0.0-1.1) Eosinophils # (Auto) 0.0 x10^3/uL (0.0-0.7) Basophils # (Auto) 0.0 x10^3/uL (0.0-0.2) Laboratory Tests 09/19/21 13:35 Laboratory Tests 09/19/21 13:30 Vital Signs: Vital Signs Date Time Temp Pulse Resp B/P (MAP) Pulse Ox O2 Delivery O2 Flow Rate FiO2 09/19/21 12:48 100.1 114 18 138/70 (92) 97 Room Air 100.1 EKG: EKG: Sinus tachycardia. Heart rate [address] elevation or depression. [] Radiology/Procedures: Radiology/Procedures: []Exam Date: 09/19/2021 1:19 PM XR CHEST 2V Indication: Reason: cough / Spl. Instructions: / History: . Comparison: January 16, 2021 FINDINGS/ IMPRESSION: The cardiac silhouette and pulmonary vasculature are within normal limits. There is no focal consolidation, pleural effusion or pneumothorax. Degenerative changes are seen in the spine. Electronically signed by: Ten Molina MD (09/19/2021 1:43 PM) [id number] Course & Med Decision Making: Course & Med Decision Making Pertinent Labs and Imaging studies reviewed. (See chart for details) [] 51-year-old female presents with body aches, fever, cough, nausea and vomiting x4 days. Work-up in ER consisted of chest x-ray, CBC, BMP, troponin, D-dimer. Patient's febrile on arrival. Fever treated while in the ER. Patient also given NS bolus to treat dehydration and Zofran for nausea. Patient states that she received 1 COVID-vaccine but has yet to get her second dose. Patient's is also sick with the same symptoms. Chest x-ray is unremarkable. All labs including troponin and D-dimer are unremarkable. COVID and influenza are both negative. Discussed results with patient. Patient's heart rate decreased to 106 after fluids administered. Patient reports symptoms have improved. Advised patient to quarantine at home until we receive PCR testing back. Ibuprofen and Tylenol at home for fever. Sending patient home with a prescript ion for Zofran to help with nausea. Discussed return precautions in length with patient. Patient verbalizes she understands return precautions and discharge instructions. Dragon Disclaimer: Erika Disclaimer: This electronic medical record was generated, in whole or in part, using a voice recognition dictation system. Departure Departure Impression: Primary Impression: Fever Qualified Codes: R50.9 - Fever, unspecified Additional Impression: Cough Disposition: HOME / SELF CARE / HOMELESS Condition: STABLE Referrals: NO PCP (PCP) Patient Instructions: Fever, Adult, [id number] Additional Instructions: You were seen in the emergency room for fever, body aches, nausea. You were given fluids to help with dehydration. We also gave you ibuprofen while in the ER. Make sure you are alternating between Tylenol and ibuprofen at home. Make sure you are drinking plenty of fluids. Your COVID and influenza test were both negative. We have sent a PCR test off to verify results. Since your has tested positive for COVID I would assume you also have COVID. Please self quarantine at home. Return to the emergency room if you have an increase in shortness of breath, chest pain, uncontrollable vomiting or any other concerning symptoms. Vies follow-up with your PCP in the next 1 to 2 days for further management. EMERGENCY DEPARTMENT GENERAL DISCHARGE INSTRUCTIONS Thank you for coming to [facility] Emergency Department (ED) today and trusting us with you care. We trust that you had a positive experience in our Emergency Department. If you wish to speak to the department management, you may call the Director at [phone]. YOUR FOLLOW UP INSTRUCTIONS ARE FOLLOWS: 1. Do you have a private Doctor? If you do not have a private doctor, please ask for a resource list of physicians or clinics that may be able to assist you with follow up care. 2. The Emergency Physicain has interpreted your x-rays. The X-Ray specialist will also review them. If there is a change in the findings, you will be notified in 48 hours when at all possible. 3. A lab test or culture has been done, your results will be reviewed and you will be notified if you need a change in treatment. ADDITIONAL INSTRUCTIONS AND INFORMATION: 1. Your care today has been supervised by a physician who is specially trained in emergency care. Many problems require more than one evaluation for a complete diagnosis and treatment. We recommend that you schedule your follow up appointment as recom mended to ensure complete treatment of you illness or injury. If you are unable to obtain follow up care and continue to have a problem, or if your condition worsens, we recommend that you return to the ED. 2. We are not able to safely determine your condition over the phone nor are we able to give sound medical advice over the phone. For these safety reasons, if you call for medical advice we will ask you to come to the ED for further evaluation. 3. If you have any questions regarding these discharge instructions please call the ED at [phone]. SAFETY INFORMATION: In the interest of safety, wellness, and injury prevention; we encourage you to wear your sealbelt, if you smoke; quite smoking, and we encourage family to use a protective helmet for bicycling and other sporting events that present an increased risk for head injury. IF YOUR SYMPTOMS WORSEN OR NEW SYMPTOMS DEVELOP, OR YOU HAVE CONCERNS ABOUT YOUR CONDITION; OR IF YOUR CONDITION WORSENS WHILE YOU ARE WAITING FOR YOUR FOLLOW UP APPOINTMENT; EITHER CONTACT YOUR PRIMARY CARE DOCTOR, THE PHYSICIAN WHOSE NAME AND NUMBER YOU WERE GIVEN, OR RETURN TO THE ED IMMEDIATELY. Scripts Ondansetron (ONDANSETRON ODT) 4 Mg Tab.rapdis 1 TAB PO PRN Q6-8HRS for 3 Days, #10 TAB Prov: NAVYA YI APRN 09/19/21 NAVYA YI APRN Sep 19, 2021 14:09
--- NOTE | 2021-09-19 14:18 | EKG ---
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
[2021-09-19] MEDS ORDERED: ONDA4TAB12 PO (14:34)
--- NOTE | 2021-09-20 17:51 | NUR ---
IP: Attempted to contact pt concerning covid results. No answer, left a voicemail to return the call.
== END 2021-09-19 15:05 | disposition home or self-care (01) ==
LOC: ER 12:34
DX: R50.9 Fever, unspecified (principal); R05.9 Cough, unspecified; E11.9 Type 2 diabetes mellitus without complications; Z20.822 Contact with and (suspected) exposure to COVID-19; E78.00 Pure hypercholesterolemia, unspecified; I10 Essential (primary) hypertension
CPT/HCPCS: 36415; 71046; 80048; 83735; 84484; 85025; 85379; 87428; 93005; 96360; 96361; 99285; J7030; U0003; U0005

== ENCOUNTER 2021-09-29 18:49 | Emergency (ER) | payer MEDICAID ==
[~2021-09-29] VITALS: Ht 170.2 cm; Wt 110.5 kg
[~2021-09-29 18:49] MED LIST changes: +ONDA4TAB12 PO
--- NOTE | 2021-09-29 19:30 | PHYS DOC ---
Past Medical History Past Medical History: Diabetes-Type II, High Cholesterol, Hypertension (SIOBHAN STAUFFER APRN) Past Surgical History: No Surgical History (SIOBHAN STAUFFER APRN) Smoking Status: Never Smoker Alcohol Use: None Drug Use: None (SIOBHAN STAUFFER APRN) General Adult EDM: Chief Complaint: HAND PROBLEM HPI: HPI: Patient is a 51-year-old female that presents today with left hand pain. Patient states that yesterday she noticed a bruise that showed up on her palm of her left hand and it correlates with a bruise on the other side of her hand as well, she denies trauma or any injury to this hand. She also states that her forearm also feels funny and different and tight and she said it does not feel normal as well. Patient also states that yesterday she had chest pain and shortness of air as well. Patient was seen here on September 19, 2021 and had an extensive work-up for chest pain had a negative Covid test at that time and had a negative D-dimer. Patient states she is experiencing waxing and waning chest pain today, and is just very concerned about the left hand bruising. (SIOBHAN STAUFFER HEALTH PHYSICIST) Review of Systems: Review of Systems: Constitutional: Denies fever or chills. [] Eyes: Denies change in visual acuity. [] HENT: Denies nasal congestion or sore throat. [] Respiratory: Shortness of air denies cough [] Cardiovascular: Chest pain denies edema. [] GI: Denies abdominal pain, nausea, vomiting, bloody stools or diarrhea. [] : Denies dysuria. [] Musculoskeletal: Left hand bruising and pain Integument: Denies rash. [] Neurologic: Denies headache, focal weakness or sensory changes. [] Endocrine: Denies polyuria or polydipsia. [] Lymphatic: Denies swollen glands. [] Psychiatric: Denies depression or anxiety. [] (SIOBHAN STAUFFER APRN) Heart Score: C/O Chest Pain: Yes HEART Score for Chest Pain: HEART Score for Chest Pain Response (Comments) Value History Slighlty/Non-Suspicious 0 ECG Normal 0 Age >45 - < 65 1 Risk Factors >3 Risk Factors or Hx CAD 2 Troponin < Normal Limit 0 Total 3 Risk Factors: Risk Factors: DM, Current or recent (<one month) smoker, HTN, HLP, family history of CAD, obesity. Risk Scores: Score 0 - 3: 2.5% MACE over next 6 weeks - Discharge Home Score 4 - 6: 20.3% MACE over next 6 weeks - Admit for Clinical Observation Score 7 - 10: 72.7% MACE over next 6 weeks - Early Invasive Strategies (SIOBHAN STAUFFER APRN) Allergies: Allergies: Allergies Coded Allergies Type Severity Reaction Last Updated Verified No Known Drug Allergies 09/19/21 No (SIOBHAN STAUFFER APRN) Physical Exam: PE: Constitutional: Well developed, well nourished, no acute distress, non-toxic appearance. [] HENT: Normocephalic, atraumatic, bilateral external ears normal, oropharynx moist, no oral exudates, nose normal. [] Eyes: PERRLA, EOMI, conjunctiva normal, no discharge. [] Neck: Normal range of motion, no tenderness, supple, no stridor. [] Cardiovascular:Heart rate regular rhythm, no murmur [] Lungs & Thorax: Left-sided breath sounds clear to auscultation, right or diminished in the bases Abdomen: Bowel sounds normal, soft, no tenderness, no masses, no pulsatile masses. [] Skin: Warm, dry, no erythema, no rash. [] Back: No tenderness, no CVA tenderness. [] Extremities: Left hand bruise and raised area noted over the fourth metacarpal area on the palmar and dorsal side of the hand, it is tender to touch, cap refill distal to that area is less than 2 seconds, normal range of motion is noted in the hand, sensory is within normal limits distal to the bruising, radial pulse is 2+. no redness warmth or drainage noted from the area on the left hand Neurologic: Alert and oriented X 3, normal motor function, normal sensory function, no focal deficits noted. [] Psychologic: Affect normal, judgement normal, mood normal. [] (SIOBHAN STAUFFER APRN) Current Patient Data: Labs: Laboratory Tests Test 09/29/21 19:42 09/29/21 20:25 09/29/21 20:30 White Blood Count 11.1 x10^3/uL Red Blood Count 4.75 x10^6/uL Hemoglobin 12.7 g/dL Hematocrit 40.0 % Mean Corpuscular Volume 84 fL Mean Corpuscular Hemoglobin 27 pg Mean Corpuscular Hemoglobin Concent 32 g/dL Red Cell Distribution Width 17.0 % Platelet Count 340 x10^3/uL Neutrophils (%) (Auto) 62 % Lymphocytes (%) (Auto) 30 % Monocytes (%) (Auto) 7 % Eosinophils (%) (Auto) 1 % Basophils (%) (Auto) 1 % Neutrophils # (Auto) 6.9 x10^3/uL Lymphocytes # (Auto) 3.3 x10^3/uL Monocytes # (Auto) 0.8 x10^3/uL Eosinophils # (Auto) 0.1 x10^3/uL Basophils # (Auto) 0.1 x10^3/uL Platelet Estimate Pending Erythrocyte Sedimentation Rate 15 D-Dimer (Deanne) 0.30 ug/mlFEU Sodium Level 141 mmol/L Potassium Level 3.3 mmol/L Chloride Level 106 mmol/L Carbon Dioxide Level 25 mmol/L Anion Gap 10 Blood Urea Nitrogen 14 mg/dL Creatinine 0.8 mg/dL Estimated GFR (Cockcroft-Gault) 75.3 BUN/Creatinine Ratio 18 Glucose Level 153 mg/dL Calcium Level 8.0 mg/dL Total Bilirubin 0.3 mg/dL Aspartate Amino Transf (AST/SGOT) 63 U/L Alanine Aminotransferase (ALT/SGPT) 130 U/L Alkaline Phosphatase 62 U/L Troponin I High Sensitivity 7 ng/L C-Reactive Protein, Quantitative 2.9 mg/L Total Protein 7.0 g/dL Albumin 3.2 g/dL Albumin/Globulin Ratio 0.8 Urine Collection Type Unknown Urine Color Yellow Urine Clarity Cloudy Urine pH 6.0 Urine Specific Emma >=1.030 Urine Protein Negative mg/dL Urine Glucose (UA) 250 mg/dL Urine Ketones (Stick) Trace mg/dL Urine Blood Negative Urine Nitrite Negative Urine Bilirubin Negative Urine Urobilinogen Dipstick 0.2 mg/dL Urine Leukocyte Esterase Moderate Urine RBC 6-10 /HPF Urine WBC 11-20 /HPF Urine Squamous Epithelial Cells Mod /LPF Urine Bacteria Few /HPF SARS-CoV-2 Antigen (Rapid) Negative Vital Signs: Vital Signs Date Time Temp Pulse Resp B/P (MAP) Pulse Ox O2 Delivery O2 Flow Rate FiO2 1/30/22 19:15 97.4 98 16 161/80 (107) 97 Room Air 97.4 (SIOBHAN STAUFFER HEALTH PHYSICIST) EKG: EKG: EKG done at [address] Mosquera at 1925 shows sinus rhythm with no ectopy at a rate of 84 with a WV interval of 140 ms and QTC of 419 ms no STEMI [] (SIOBHAN STAUFFER APRN) Radiology/Procedures: Radiology/Procedures: REASON: chest pain PROCEDURE: CHEST AP ONLY XR CHEST 1V History: Reason: chest pain / Spl. Instructions: / History: Comparison: September 19, 2021 Findings: Low lung volumes. Mild ill-defined bibasilar opacities. No consolidation or pleural effusion. Normal heart size. No pneumothorax. Impression: 1. Low lung volumes with mild ill-defined bibasilar opacities, may represent atelectasis or developing infiltrates. Electronically signed by: Andrew Waller DO (09/29/2021 8:12 PM) ERIC [] REASON: bruising to palm of hand over 4th metacarpal PROCEDURE: HAND LEFT 3V XR HAND_LEFT 3 VIEWS History: Reason: bruising to palm of hand over 4th metacarpal / Spl. Instructions: / History: Technique: 3 views left hand Comparison: None. Findings: No dislocation. No acute fracture. Impression: 1. No acute osseous abnormality. Electronically signed by: Andrew Waller DO (09/29/2021 8:14 PM) ERIC REASON: left hand pain PROCEDURE: VENOUS UPPER EXTREMITY LEFT US DPLX VENOUS EXTREMITY UPPER LT History: Reason: left hand pain / Spl. Instructions: / History: Comparison: None. Procedure: Color flow Doppler, Doppler spectral analysis, and 2D images are obtained with and without compression in the jugular vein, subclavian vein, axillary vein, brachial vein, radial vein, ulnar vein, and basilic and cephalic veins. Findings: There is normal color flow, augmentation, and compressibility of all visualized vein segments. No evidence of deep venous thrombus is present. IMPRESSION: 1. No evidence of left upper extremity deep venous thrombosis. Electronically signed by: Andrew Waller DO (09/29/2021 8:38 PM) ERIC REASON: left hand pain PROCEDURE: UPPER EXT ARTERIAL LEFT US EXTREM UPPER ARTERIAL UNILAT Indication: Reason: left hand pain / Spl. Instructions: / History: Comparison: None. Procedure: Real-time grayscale, color flow Doppler, and Doppler spectral waveform analysis of the arterial system of the lower extremity is performed. Findings: Triphasic wave forms throughout the left upper extremity. Patent left subclavian, axillary, brachial, radial and ulnar arteries. No significant velocity elevation. No occlusion. IMPRESSION: 1. No hemodynamically significant arterial stenosis. Electronically signed by: Andrew Waller DO (09/29/2021 8:39 PM) [facility] (SIOBHAN STUAFFER APRN) Course & Med Decision Making: Course & Med Decision Making Pertinent Labs and Imaging studies reviewed. (See chart for details) 2109 did review radiological and laboratory results with patient. Patient denies any dysuria or frequency in urination, did inform patient that her urine did show an infection, and we will treat her for urinary tract infection. Patient also informed that her chest x-ray and other laboratory tests were negative. Patient is instructed to follow-up with her primary care physician for further management of her left hand pain. Patient verbalizes understanding of this and is requesting some pain medication which I will give her 10 tablets of hydrocodone for pain relief. (SIOBHAN STAUFFER APRN) Course & Med Decision Making Patient a 51-year-old female who presents complaining of multiple complaints as described in HPI above. Symptoms include cough, fever/chills, chest pain, and some painful areas on her left arm and hand. The areas on the hand and arm seemed most consistent with vein varicosities. Venous and arterial US was normal. Did not appear to be syphilitic nor does she have risk factors for STI. No t ravels or tick bites to suggest lyme. No risk factors for endocarditis but given reported fevers blood cultures were sent and are now negative x2 for 2days. Rapid COVID was negative, but at time of signing this chart her PCR has come back POSITIVE for COVID. Chart review shows attempts are being made to inform her of these results per hospital protocols. See the remainder of the note above for other details. (KAYA MOSQUERA MD) Dragon Disclaimer: Dragon Disclaimer: This electronic medical record was generated, in whole or in part, using a voice recognition dictation system. (DERKS-WENDY,SIOBHAN HEALTH PHYSICIST) Departure Departure Impression: Primary Impression: Hand pain, left Additional Impression: UTI (urinary tract infection) Qualified Codes: N30.00 - Acute cystitis without hematuria Disposition: HOME / SELF CARE / HOMELESS Condition: STABLE Referrals: NO PCP (PCP) CARMEN BARCENAS MD Patient Instructions: Urinary Tract Infection Additional Instructions: Macrobid 100 mg take 1 tablet twice daily for 7 full days for urinary tract infection Hydrocodone take 1 tablet every 6 hours as needed for severe pain in your left hand. Use with caution may cause drowsiness, also may cause constipation as well. [id number] Tylenol 1 hour ibuprofen as needed for mild to moderate pain. Follow-up with your primary care physician by phone tomorrow for further shad gement of your left hand pain. Scripts Hydrocodone Bit/Acetaminophen (HYDROCODONE-APAP 5-325 ) 1 Tab Tablet 1 TAB PO PRN Q6HRS PRN for PAIN, #10 TAB 0 Refills Prov: SIOBHAN STAUFFER HEALTH PHYSICIST 09/29/21 Nitrofurantoin Monohyd/M-Cryst (MACROBID 100 MG CAPSULE) 100 Mg Capsule 1 CAP PO BID for 7 Days, #14 CAP 0 Refills Prov: SIOBHAN STAUFFER HEALTH PHYSICIST 09/29/21 SIOBHAN STAUFFER HEALTH PHYSICIST Sep 29, 2021 19:30 KAYA MOSQUERA MD Oct 02, 2021 03:04
[2021-09-29 19:55] LABS: BASO # 0.1 x10^3/uL (0.0-0.2); BASO % 1 % (0-3); EOS # 0.1 x10^3/uL (0.0-0.7); EOS % 1 % (0-3); HEMOGLOBIN 12.7 g/dL (12.0-15.5); LYMPH # 3.3 x10^3/uL (1.0-4.8); LYMPH % 30 % (24-48); MEAN CORPUSCULAR HEMOGLOBIN 27 pg (25-35); MEAN CORPUSCULAR HGB CONC 32 g/dL (31-37); MEAN CORPUSCULAR VOLUME 84 fL (79-100); MONO # 0.8 x10^3/uL (0.0-1.1); MONO % 7 % (0-9); NEUT # 6.9 x10^3/uL (1.8-7.7); NEUT % 62 % (31-73); PLATELET COUNT 340 x10^3/uL (140-400); RED BLOOD COUNT 4.75 x10^6/uL (3.50-5.40); WHITE BLOOD COUNT 11.1 x10^3/uL (4.0-11.0)
[2021-09-29 20:03] LABS: CREATININE 0.8 mg/dL (0.6-1.0); GFR 75.3; POTASSIUM 3.3 mmol/L (3.5-5.1)
[2021-09-29 20:09] LABS: ALBUMIN 3.2 g/dL (3.4-5.0); ALBUMIN/GLOBULIN RATIO 0.8 (1.0-1.7); TOTAL BILIRUBIN 0.3 mg/dL (0.2-1.0)
--- NOTE | 2021-09-29 20:14 | RAD ---
XR CHEST 1V History: Reason: chest pain / Spl. Instructions: / History: Comparison: September 19, 2021 Findings: Low lung volumes. Mild ill-defined bibasilar opacities. No consolidation or pleural effusion. Normal heart size. No pneumothorax. Impression: 1. Low lung volumes with mild ill-defined bibasilar opacities, may represent atelectasis or developi ng infiltrates. Electronically signed by: Andrew Waller DO (09/29/2021 8:12 PM) [facility]
--- NOTE | 2021-09-29 20:17 | RAD ---
XR HAND_LEFT 3 VIEWS History: Reason: bruising to palm of hand over 4th metacarpal / Spl. Instructions: / History: Technique: 3 views left hand Comparison: None. Findings: No dislocation. No acute fracture. Impression: 1. No acute osseous abnormality. Electronically signed by: Andrew Waller DO (09/29/2021 8:14 PM) [facility]
--- NOTE | 2021-09-29 20:40 | RAD ---
US DPLX VENOUS EXTREMITY UPPER LT History: Reason: left hand pain / Spl. Instructions: / History: Comparison: None. Procedure: Color flow Doppler, Doppler spectral analysis, and 2D images are obtained with and without compression in the jugular vein, subclavian vein, axillary vein, brachial vein, radial vein, ulnar v ein, and basilic and cephalic veins. Findings: There is normal color flow, augmentation, and compressibility of all visualized vein segments. No yasmine dence of deep venous thrombus is present. IMPRESSION: 1. No evidence of left upper extremity deep venous thrombosis. Electronically signed by: Andrew Waller DO (09/29/2021 8:38 PM) [facility]
[2021-09-29 20:41] LABS: BILIRUBIN,URINE NEGATIVE (NEG); CLARITY,URINE CLOUDY; COLOR,URINE YELLOW; NITRITE,URINE NEGATIVE (NEG); PROTEIN,URINE NEGATIVE (NEG-TRACE); UROBILINOGEN,URINE 0.2 mg/dL (0.2 mg/dL)
--- NOTE | 2021-09-29 20:41 | RAD ---
US EXTREM UPPER ARTERIAL UNILAT Indication: Reason: left hand pain / Spl. Instructions: / History: Comparison: None. Procedure: Real-time grayscale, color flow Doppler, and Doppler spectral waveform analysis of the art erial system of the lower extremity is performed. Findings: Triphasic wave forms throughout the left upper extremity. Patent left subclavian, axillary, brachial, radial and ulnar arteries. No significant velocity elevation. No occlusion. IMPRESSION: 1. No hemodynamically significant arterial stenosis. Electronically signed by: Andrew Waller DO (09/29/2021 8:39 PM) [facility]
[2021-09-29 20:48] LABS: BACTERIA,URINE FEW /HPF (0-FEW)
[2021-09-29] MEDS ORDERED: NITR100C62 PO (21:17)
[2021-09-29] MEDS ORDERED: HYDR-2761 PO (21:17)
[2021-09-29 21:20] VITALS: BP 131/70
[2021-09-29 21:36] LABS: % ATYL 5 % (0-0); % LYMPHS 33 % (24-48); % MONOS 4 % (0-10); % SEGS 58 % (35-66)
[2021-09-29 21:37] LABS: PLT ESTIMATE ADEQUATE (ADEQUATE); POIKILOCYTOSIS SLIGHT; POLYCHROMASIA SLIGHT
--- NOTE | 2021-09-30 01:11 | EKG ---
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
--- NOTE | 2021-10-01 11:24 | NUR ---
IP: Attempted to contact pt concerning covid results. No answer, left a voicemail to return the call.
--- NOTE | 2021-10-02 16:37 | NUR ---
IP: Attempted a second time to contact pt concerning covid results. No answer, left a second voicemail to return my call.
== END 2021-09-29 21:25 | disposition home or self-care (01) ==
LOC: ER 18:49
DX: U07.1 COVID-19 (principal); S60.222A Contusion of left hand, initial encounter; N30.00 Acute cystitis without hematuria; E11.9 Type 2 diabetes mellitus without complications; E78.00 Pure hypercholesterolemia, unspecified; I10 Essential (primary) hypertension; F17.200 Nicotine dependence, unspecified, uncomplicated
CPT/HCPCS: 36415; 71045; 73130; 80053; 81001; 84484; 85007; 85025; 85379; 85651; 86140; 87040; 87426; 93005; 93931; 93971; 99285; U0003; U0005